=== PATIENT | female | born 1985 | race Caucasian/White ===

== ENCOUNTER → 2017-06-01 | Outpatient (CLI) | payer OTHER ==
--- NOTE | 2017-06-02 22:03 | US ---
EXAMINATION TYPE: Ultrasound MSK left ankle, posterior tibial tendon DATE OF EXAM: 06/01/2017 COMPARISON: NONE CLINICAL HISTORY: 32-year-old female left ankle injury July 03, 2016, multiple episodes of rolling t he ankle since then, injection 6 months ago did not help, currently wears a boot. Evaluate for tibial tendon tear, left side. Technique: Targeted sonographic examination of the medial left ankle for assessment of the posterior tibial tendon. FINDINGS: There is mild posterior tibial tenosynovial thickening at the level of the malleolus and mild fluid s een along the insertional fibers at the navicular. Short axis images of the insertional fibers shows an intrasubstance tear. No large or retracted tear is seen. The malleolar and supramalleolar segments are intact. IMPRESSION: Mild posterior tibial tenosynovitis with an intrasubstance tear of the insertional fibers. No large o r retracted tear.
== END | disposition home or self-care (01) ==
LOC: RADUSWWP 10:14
PROVIDERS: ATTEND Podiatrist Foot & Ankle Surgery
DX: M65.862 Other synovitis and tenosynovitis, left lower leg (principal); S86.112A Strain of other muscle(s) and tendon(s) of posterior muscle group at lower leg level, left leg, initial encounter

== ENCOUNTER 2017-09-13 13:50 | Emergency (ER) | payer OTHER ==
[2017-09-13 13:59] VITALS: BP 112/73; PULSE 78; RESP 16; TEMP 99.1
--- NOTE | 2017-09-13 14:35 | XR ---
Left ankle HISTORY: Pain 3 views of the left ankle There is soft tissue swelling present. Bone mineralization, joint spaces and alignment are maintained . No fracture or dislocation. IMPRESSION: Soft tissue swelling.
--- NOTE | 2017-09-13 15:11 | ED ---
General Adult HPI - General Chief complaint: Extremity Injury, Lower Stated complaint: fall Time Seen by Provider: 09/13/17 14:22 Source: patient, RN notes reviewed Mode of arrival: wheelchair Limitations: no limitations - History of Present Illness Initial comments: 32-year-old female presents to the emergency department for chief complaint of left ankle pain times one day. Patient states this morning she fell in the shower and hurt her ankle. Patient denies any other injuries or hitting her head. Patient states she has torn a ligament in the ankle and has had multiple braces. She is going to have ankle surgery although she is unsure when. Patient states she still has these braces. Patient states she remained nonweightbearing last time by scooter and cannot use crutches. She states she falls when she uses crutches. Patient denies any chance of . Patient has no other complaints at this time including shortness of breath, chest pain, abdominal pain, nausea or vomiting, headache, or visual changes. - Related Data Home Medications Medication Instructions Recorded Confirmed FLUoxetine HCL [PROzac] 20 mg PO DAILY 09/13/17 09/13/17 OXcarbazepine [Trileptal] 300 mg PO BID 09/13/17 09/13/17 Zaleplon [Sonata] 10 mg PO HS 09/13/17 09/13/17 traZODone HCL 100 mg PO HS 09/13/17 09/13/17 Allergies Allergy/AdvReac Type Severity Reaction Status Date / Time macadamia nut oil Allergy Unknown Verified 09/13/17 14:09 shellfish derived [Shellfish] Allergy Unknown Verified 09/13/17 14:09 sunflower seed Allergy Unknown Verified 09/13/17 14:09 Review of Systems ROS Statement: Those systems with pertinent positive or pertinent negative responses have been documented in the HPI. ROS Other: All systems not noted in ROS Statement are negative. Past Medical History Past Medical History: No Reported History History of Any Multi-Drug Resistant Organisms: None Reported Past Surgical History: Appendectomy Additional Past Surgical History / Comment(s): ankle implant ( left side) Past Psychological History: No Psychological Hx Reported Smoking Status: Never smoker Past Alcohol Use History: None Reported Past Drug Use History: None Reported General Exam Limitations: no limitations General appearance: alert, in no apparent distress Head exam: Present: atraumatic, normocephalic, normal inspection Respiratory exam: Present: normal lung sounds bilaterally. Absent: respiratory distress, wheezes, rales, rhonchi, stridor Cardiovascular Exam: Present: regular rate, normal rhythm, normal heart sounds. Absent: systolic murmur, diastolic murmur, rubs, gallop, clicks Extremities exam: Present: tenderness (Tenderness inferior to the lateral malleolus of the left ankle. No tenderness in the left foot or tib-fib.), normal capillary refill (Refill less than 2 seconds and pedal pulse 2+ in the left lower extremity.), joint swelling (Mild joint swelling of the left lateral ankle noted. No ecchymosis.), other (Sensation intact in the left lower extremity.). Absent: full ROM (Patient has slightly limited flexion and extension of the ankle.), pedal edema, calf tenderness (No tenderness in the calf. No redness, swelling, or warmth in the left calf. Negative Homans sign.) Course Vital Signs 09/13/17 13:54 Temperature 99.1 F Pulse Rate 78 Respiratory 16 Rate Blood Pressure 112/73 O2 Sat by Pulse 97 Oximetry Medical Decision Making - Medical Decision Making 32-year-old female presents to the emergency department for a chief complaint of left ankle pain times one day. Patient fell in the shower on the left ankle. Patient did not sustain any other injuries or hit her head or lose consciousness. Patient injured the left ankle previously and tore a ligament. She has had multiple braces and will be eventually getting surgery although she is unsure when. She does follow an orthopedic surgeon already. On exam patient has some limited range of motion of the left ankle and mild swelling on the left lateral ankle. Otherwise neurovascular intact. X-ray demonstrates no acute fractures or dislocations. Patient has the ankle brace with her today and will use that. Patient states she cannot use crutches because she will follow over. Patient does not have the scooter that she used previously to remain nonweightbearing. Patient was educated to try to remain nonweightbearing as much as possible and was given the next day off work. Patient states she has Motrin and Tylenol at home. Patient was educated to rest , ice, and elevate the ankle. She is to follow-up with orthopedics in that time. She does not need a referral as she already follows an orthopedic surgeon. She is to return to the emergency Department if she has any worsening symptoms. Disposition Clinical Impression: Ankle pain, left Disposition: HOME SELF-CARE Condition: Good Instructions: Ankle Sprain (ED), RICE Therapy (ED) Additional Instructions: Please take Motrin and Tylenol for ankle pain. Please rest ice and elevate the ankle. Please try to remain nonweightbearing as much as possible. Follow-up with orthopedic surgeon in 1-2 days. Return to the emergency department if symptoms worsen. Is patient prescribed a controlled substance at d/c from ED?: No Referrals: Eriberto Nassar MD [Primary Care Provider] - 1-2 days Time of Disposition: 15:11
== END 2017-09-13 15:20 | disposition home or self-care (01) ==
LOC: EC 13:50
DX: M25.572 Pain in left ankle and joints of left foot (principal); Z79.899 Other long term (current) drug therapy; Z91.013 Allergy to seafood; Z91.018 Allergy to other foods; W18.2XXA Fall in (into) shower or empty bathtub, initial encounter; Y93.E1 Activity, personal bathing and showering; Y92.009 Unspecified place in unspecified non-institutional (private) residence as the place of occurrence of the external cause
CPT/HCPCS: 99283

== ENCOUNTER 2018-10-29 17:19 | Emergency (ER) | payer OTHER ==
[2018-10-29 17:54] VITALS: TEMP 99.1
[2018-10-29] MEDS ORDERED: SODIUM CHLORIDE 0.9% 1,000 ML IV ONE (18:02)
--- NOTE | 2018-10-29 18:05 | ED ---
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 Patient states that there were several people who got sick with similar symptoms, and that a "septic backup" was identified coming from a water heater. The patient states that since leaving work her symptoms have started to improve. She cannot identify any other inciting incidences. There are no arrhythmia or alleviating factors. Timing is constant thoughts that. - Related Data Home Medications Medication Instructions Recorded Confirmed OXcarbazepine [Trileptal] 300 mg PO BID 09/13/17 10/29/18 Zaleplon [Sonata] 10 mg PO HS 09/13/17 10/29/18 traZODone HCL 100 mg PO HS 09/13/17 10/29/18 Ferrous Sulfate [Feosol] 325 mg PO DAILY 10/29/18 10/29/18 Allergies Allergy/AdvReac Type Severity Reaction Status Date / Time aspirin Allergy Rash/Hives Verified 10/29/18 18:29 coconut Allergy Anaphylaxis Verified 10/29/18 18:29 glyburide Allergy Anaphylaxis Verified 10/29/18 18:29 macadamia nut oil Allergy Anaphylaxis Verified 10/29/18 18:29 shellfish derived [Shellfish] Allergy Anaphylaxis Verified 10/29/18 18:29 sunflower seed Allergy Anaphylaxis Verified 10/29/18 18:29 Review of Systems ROS Statement: Those systems with pertinent positive or pertinent negative responses have been documented in the HPI. ROS Other: All systems not noted in ROS Statement are negative. Gastrointestinal: Reports: abdominal pain, nausea Neurological: Reports: headache Past Medical History Past Medical History: No Reported History History of Any Multi-Drug Resistant Organisms: None Reported Past Surgical History: Appendectomy Additional Past Surgical History / Comment(s): ankle implant ( left side) Past Psychological History: No Psychological Hx Reported Smoking Status: Never smoker Past Alcohol Use History: None Reported Past Drug Use History: None Reported General Exam Limitations: no limitations General appearance: alert, in no apparent distress Head exam: Present: atraumatic, normocephalic Eye exam: Present: normal appearance, PERRL, EOMI ENT exam: Present: normal exam Neck exam: Present: normal inspection Respiratory exam: Present: normal lung sounds bilaterally. Absent: respiratory distress, wheezes Cardiovascular Exam: Present: regular rate, normal rhythm GI/Abdominal exam: Present: soft. Absent: distended, tenderness Rectal exam: Present: deferred Extremities exam: Present: normal inspection Back exam: Present: normal inspection Neurological exam: Present: alert, oriented X3, CN II-XII intact. Absent: motor sensory deficit Psychiatric exam: Present: normal affect, normal mood Skin exam: Present: warm, dry, intact Course Vital Signs 10/29/18 17:51 Temperature 99.1 F Pulse Rate 75 Respiratory 16 Rate Blood Pressure 110/75 O2 Sat by Pulse 100 Oximetry Medical Decision Making - Medical Decision Making Patient presents with a chief complaint of headache, nausea and abdominal pain. On initial evaluation, vitals are stable, patient is in no acute distress. Patient states there was a "septic backup" at work, from a water heater, is possible that the patient may been exposed to carbon monoxide given that other people at her work and similar symptoms. Patient to be evaluated with basic labs including a carbon monoxide level, she was given a liter of fluid and placed on supplement oxygen. 7:23 PM Lab evaluation this patient is unremarkable. On reevaluation, patient states that she feels improved. At this time, patient stable for discharge. She was instructed to follow up with primary care 1-2 days, return to ED if symptoms worsen or change. She was instructed to return to work after the problem is been resolved. - Lab Data Result diagrams: 10/29/18 18:18 10/29/18 18:18 Lab Results 10/29/18 10/29/18 10/29/18 Range/Units 18:18 18:18 18:18 WBC 9.3 (3.8-10.6) k/uL RBC 4.13 (3.80-5.40) m/uL Hgb 12.8 (11.4-16.0) gm/dL Hct 37.6 (34.0-46.0) % MCV 91.1 (80.0-100.0) fL MCH 30.9 (25.0-35.0) pg MCHC 34.0 (31.0-37.0) g/dL RDW 13.0 (11.5-15.5) % Plt Count 294 (150-450) k/uL Neutrophils % 72 % Lymphocytes % 22 % Monocytes % 4 % Eosinophils % 1 % Basophils % 0 % Neutrophils # 6.7 (1.3-7.7) k/uL Lymphocytes # 2.0 (1.0-4.8) k/uL Monocytes # 0.4 (0-1.0) k/uL Eosinophils # 0.1 (0-0.7) k/uL Basophils # 0.0 (0-0.2) k/uL Carbon Monoxide, Quant 1.2 (<10.0) % Sodium 139 (137-145) mmol/L Potassium 4.5 (3.5-5.1) mmol/L Chloride 107 (98-107) mmol/L Carbon Dioxide 24 (22-30) mmol/L Anion Gap 8 mmol/L BUN 13 (7-17) mg/dL Creatinine 0.59 (0.52-1.04) mg/dL Est GFR (CKD-EPI)AfAm >90 (>60 ml/min/1.73 sqM) Est GFR (CKD-EPI)NonAf >90 (>60 ml/min/1.73 sqM) Glucose 84 (74-99) mg/dL Calcium 8.7 (8.4-10.2) mg/dL HCG, Qual Not Detected Disposition Clinical Impression: Nausea, Environmental exposure Disposition: HOME SELF-CARE Condition: Good Instructions (If sedation given, give patient instructions): Acute Nausea and Vomiting (ED) Is patient prescribed a controlled substance at d/c from ED?: No Referrals: Eriberto Nassar MD [Primary Care Provider] - 1-2 days
[2018-10-29 18:57] LABS: Basophils % (A) 0 %; Eosinophils # (A) 0.1 k/uL (0-0.7); Eosinophils % (A) 1 %; HCT 37.6 % (34.0-46.0); HGB 12.8 gm/dL (11.4-16.0); Lymphocytes % (A) 22 %; MCH 30.9 pg (25.0-35.0); MCV 91.1 fL (80.0-100.0); Mean Platelet Volume 7.4; Monocytes # (A) 0.4 k/uL (0-1.0); Monocytes % (A) 4 %; Neutrophils # (A) 6.7 k/uL (1.3-7.7); Neutrophils % (A) 72 %; Platelet Count 294 k/uL (150-450); RBC 4.13 m/uL (3.80-5.40); WBC 9.3 k/uL (3.8-10.6)
[2018-10-29 19:07] LABS: HCG,Qualitative Serum Not Detected
[2018-10-29 19:15] LABS: African American GFR (CKD) >90 (>60 ml/min/1.73 sqM); Anion Gap 8 mmol/L; Blood Urea Nitrogen 13 mg/dL (7-17); Calcium 8.7 mg/dL (8.4-10.2); Carbon Dioxide 24 mmol/L (22-30); Chloride 107 mmol/L (98-107); Glucose 84 mg/dL (74-99); Potassium 4.5 mmol/L (3.5-5.1); Sodium 139 mmol/L (137-145)
[2018-10-29 19:57] VITALS: BP 115/72; PULSE 66; RESP 18
== END 2018-10-29 19:45 | disposition home or self-care (01) ==
LOC: EC 17:19
DX: T75.89XA Other specified effects of external causes, initial encounter (principal); R11.0 Nausea; R51 Headache; R10.9 Unspecified abdominal pain; Z79.899 Other long term (current) drug therapy; Z88.6 Allergy status to analgesic agent; Z88.8 Allergy status to other drugs, medicaments and biological substances; Z91.018 Allergy to other foods; Z91.013 Allergy to seafood; X08.8XXA Exposure to other specified smoke, fire and flames, initial encounter; Y92.69 Other specified industrial and construction area as the place of occurrence of the external cause; Y99.0 Civilian activity done for income or pay
CPT/HCPCS: 36415; 80048; 82375; 84703; 85025; 93005; 96360; 99284

== ENCOUNTER → 2018-11-11 | Outpatient (CLI) | payer OTHER ==
--- NOTE | 2018-11-11 14:55 | US ---
EXAMINATION TYPE: US transvaginal DATE OF EXAM: 11/11/2018 COMPARISON: NONE CLINICAL HISTORY: Patient states she had her LMP 10/27/2018. Passed some tissue about a week ago. Yamini ent states she has not had a positive test. Had blood drawn at her doctor's office but did not have the results. TECHNIQUE: . Transvaginal sonographic images of the pelvis were acquired. Date of LMP: 10/27/2018 EXAM MEASUREMENTS: Uterus: 7.2 x 3.1 x 3.4 cm Endometrial Stripe: 0.9 cm Right Ovary: 3.6 x 2.0 x 2.6 cm Left Ovary: 2.9 x 1.5 x 2.5 cm 1. Uterus: Anteverted wnl 2. Endometrium: wnl 3. Right Ovary: Cystic area visualized measuring 2.2 x 1.4 x 1.9 cm 4. Left Ovary: Follicles visualized, largest measuring 1.0 cm 5. Bilateral Adnexa: wnl 6. Posterior cul-de-sac: wnl Grayscale, color Doppler, spectral Doppler imaging performed of the ovaries. Arterial and venous wave forms are identified within the right ovary, there is color flow. IMPRESSION: Right ovarian cyst as described. Follicles associated with the left ovary.
== END | disposition home or self-care (01) ==
LOC: RADUSWWP 12:16
PROVIDERS: ATTEND Family Medicine
DX: O20.0 Threatened abortion (principal); N83.201 Unspecified ovarian cyst, right side
CPT/HCPCS: 76830

== ENCOUNTER 2019-02-05 19:49 | Emergency (ER) | payer OTHER ==
[2019-02-05 20:01] VITALS: TEMP 98.3
[2019-02-05 20:50] LABS: Basophils # (A) 0.1 k/uL (0-0.2); Basophils % (A) 0 %; Eosinophils # (A) 0.1 k/uL (0-0.7); Eosinophils % (A) 1 %; HCT 46.3 % (34.0-46.0); HGB 15.6 gm/dL (11.4-16.0); Lymphocytes # (A) 2.8 k/uL (1.0-4.8); Lymphocytes % (A) 24 %; MCH 31.3 pg (25.0-35.0); MCHC 33.7 g/dL (31.0-37.0); MCV 92.9 fL (80.0-100.0); Mean Platelet Volume 6.4; Monocytes # (A) 0.4 k/uL (0-1.0); Monocytes % (A) 4 %; Neutrophils # (A) 8.1 k/uL (1.3-7.7); Neutrophils % (A) 70 %; Platelet Count 288 k/uL (150-450); RBC 4.98 m/uL (3.80-5.40); RDW 11.9 % (11.5-15.5); WBC 11.6 k/uL (3.8-10.6)
[2019-02-05 20:55] LABS: ALT 13 U/L (9-52); AST 22 U/L (14-36); African American GFR (CKD) >90 (>60 ml/min/1.73 sqM); Albumin 4.9 g/dL (3.5-5.0); Alkaline Phosphatase 119 U/L (38-126); Anion Gap 12 mmol/L; Blood Urea Nitrogen 12 mg/dL (7-17); Calcium 9.6 mg/dL (8.4-10.2); Carbon Dioxide 22 mmol/L (22-30); Chloride 106 mmol/L (98-107); Glucose 79 mg/dL (74-99); Potassium 4.3 mmol/L (3.5-5.1); Sodium 140 mmol/L (137-145); Total Bilirubin 0.8 mg/dL (0.2-1.3); Total Protein 8.1 g/dL (6.3-8.2)
[2019-02-05 21:02] LABS: D-Dimer 0.36 mg/L FEU (<0.60); INR 0.9 (<1.2); Partial Thromboplastin Time 24.1 sec (22.0-30.0); Prothrombin Time 9.9 sec (9.0-12.0)
--- NOTE | 2019-02-05 21:02 | XR ---
EXAMINATION TYPE: XR chest 2V DATE OF EXAM: 02/05/2019 COMPARISON: NONE HISTORY: Short of breath TECHNIQUE: Frontal and lateral views of the chest are obtained. FINDINGS: Heart and mediastinum are normal. Lungs are clear. Diaphragm is normal. Bony thorax appear s normal. There are chest leads. IMPRESSION: Normal chest
--- NOTE | 2019-02-05 22:26 | US ---
EXAMINATION TYPE: US venous doppler duplex LE LT DATE OF EXAM: 02/05/2019 10:20 PM COMPARISON: NONE CLINICAL HISTORY: r/o dvt. R/O DVT. Pain and swelling left leg. No HX of DVT. Patient does not take b lood thinners. SIDE PERFORMED: Left TECHNIQUE: The lower extremity deep venous system is examined utilizing real time linear array sonog jenna with graded compression, doppler sonography and color-flow sonography. VESSELS IMAGED: External Iliac Vein (EIV) Common Femoral Vein Deep Femoral Vein Greater Saphenous Vein * Femoral Vein Popliteal Vein Small Saphenous Vein * Proximal Calf Veins (* superficial vessels) Left Leg: No evidence of DVT in veins imaged from prox calf veins to EIV. Hypoechoic area with hyper echoic center seen in the left groin measurin.2 x 1.3 x 0.7 cm. IMPRESSION: No sign of deep venous thrombosis in the left leg. There is ordinary appearing left ingu inal lymph node.
[2019-02-05 22:52] VITALS: BP 120/80; PULSE 76; RESP 16
--- NOTE | 2019-02-05 22:58 | ED ---
SOB HPI - General Chief Complaint: Shortness of Breath Stated Complaint: poss blood clot Time Seen by Provider: 02/05/19 20:03 Source: patient Mode of arrival: ambulatory Limitations: no limitations - History of Present Illness Initial Comments: 33-year-old female presenting to the emergency room for evaluation of possible blood clot. Patient states she went to an urgent care because she felt short of breath slightly for the past 3 days. She does admit to ALLERGIES and some congestion. Patient states that they were asking about her lower extremities on history taking and she mentioned an old tendon injury of the left lower extremity. She states she has had no recent injuries or surgeries. Patient states that she always has on and off chronic leg swelling denies any changes. Patient denies any calf pain but states she did have some left posterior thigh pain the other day she thought it was a cramping sensation. Patient denies any severe pain numbness tingling of the leg. She states that she has had no chest pain or pain with deep inspiration, denies fever. She denies history of diabetes high blood pressure. She states that she is not . Patient denies any history of DVT or pulmonary embolism. Denies history of cancer r ecent travel, or immobilization. Patient denies hemoptysis or cough. Patient denies any other symptoms at this time. Remaining abuse is negative patient appears well upon arrival heart rate within normal limits. Oxygen well on room air. - Related Data Home Medications Medication Instructions Recorded Confirmed OXcarbazepine [Trileptal] 300 mg PO BID 09/13/17 02/05/19 Zaleplon [Sonata] 10 mg PO HS 09/13/17 02/05/19 traZODone HCL 100 mg PO HS 09/13/17 02/05/19 Ferrous Sulfate [Feosol] 325 mg PO DAILY 10/29/18 02/05/19 Previous Rx's Medication Instructions Recorded predniSONE 20 mg PO DAILY 4 Days #4 tab 02/05/19 Allergies Allergy/AdvReac Type Severity Reaction Status Date / Time aspirin Allergy Rash/Hives Verified 02/05/19 20:27 coconut Allergy Anaphylaxis Verified 02/05/19 20:27 glyburide Allergy Anaphylaxis Verified 02/05/19 20:27 macadamia nut oil Allergy Anaphylaxis Verified 02/05/19 20:27 sunflower seed Allergy Anaphylaxis Verified 02/05/19 20:27 amoxicillin AdvReac Nausea & Verified 02/05/19 20:27 Vomiting & Diarrhea shellfish derived [Shellfish] AdvReac Nausea & Verified 02/05/19 20:27 Vomiting & Diarrhea Review of Systems ROS Statement: Those systems with pertinent positive or pertinent negative responses have been documented in the HPI. ROS Other: All systems not noted in ROS Statement are negative. Past Medical History Past Medical History: No Reported History History of Any Multi-Drug Resistant Organisms: None Reported Past Surgical History: Appendectomy, Orthopedic Surgery Additional Past Surgical History / Comment(s): ankle implant ( left side) Past Psychological History: No Psychological Hx Reported Smoking Status: Never smoker Past Alcohol Use History: None Reported Past Drug Use History: None Reported General Exam - General Exam Comments Initial Comments: General: The patient is awake and alert, in no distress, and does not appear acutely ill. Eye: +3 mm pupils are equal, round and reactive to light, extra-ocular movements are intact. No nystagmus. There is normal conjunctiva bilaterally. No signs of icterus. No photophobia Ears, nose, mouth and throat: There are moist mucous membranes and no oral lesions. Oropharynx was not erythematous there is no tonsillar enlargement exudates or lesions. Uvula midline. No anterior cervical lymphadenopathy. Rhinorrhea, clear and bilateral nares. No tripoding, no drooling. Neck: The neck is supple, there is no tenderness or JVD. Cardiovascular: There is a regular rate and rhythm. No murmur, rub or gallop is appreciated. Respiratory: Lungs are clear to auscultation, respirations are non-labored, breath sounds are equal. No wheezes, stridor, rales, or rhonchi. No retractions or abdominal breathing. Gastrointestinal: Soft, non-distended, non-tender abdomen without masses or organomegaly noted. There is no rebound or guarding present. Bowel sounds are unremarkable. Musculoskeletal: Normal ROM, no tenderness. Strength 5/5. Sensation intact. Radial pulses equal bilaterally 2+. Neurological: A&O x 3. CN II-XII intact, There are no obvious motor or sensory deficits. Coordination appears grossly intact. Speech appears normal, no muffling. Skin: Skin is warm and dry and no rashes or lesions are noted. No extremity edema. Negative jazz. Small bruise left anterior shikn Psychiatric: Cooperative Limitations: no limitations Course Vital Signs 02/05/19 02/05/19 02/05/19 19:59 20:01 21:00 Temperature 98.3 F Pulse Rate 82 80 Respiratory 24 24 22 Rate Blood Pressure 125/86 111/78 O2 Sat by Pulse 100 100 Oximetry 02/05/19 02/05/19 02/05/19 21:30 22:00 22:50 Temperature Pulse Rate 72 68 76 Respiratory 18 22 16 Rate Blood Pressure 108/74 115/102 120/80 O2 Sat by Pulse 100 100 100 Oximetry Medical Decision Making - Medical Decision Making well-appearing 33-year-old female. Presented for rule out blood clot. D-dimer negative. Ultrasound of the left lower extremity negative. Lungs clear on examination. No wheezing. Chest x-ray clear. EKG no acute findings. Patient oxygen will room air no hypoxia no tachycardia. No risks factors for DVT or pulmonary embolism, patient appears well with no signs of distress.. Patient has nasal congestion upper respiratory symptoms. Patient does not have pitting edema, obsese legs that are equal b/l. No masses or pain in calfs. After reviewing laboratory studies patient's overall. His history and the patient most likely has upper respiratory infection. She states she free clinic bronchitis at this time. Patient given prescription for prednisone primary care follow-up return parameters discussed case discussed with attending provider and patient was discharged. No agreeable to this care plan states she did not think it is necessary for her to come to the emergency department. - Lab Data Result diagrams: 02/05/19 20:36 02/05/19 20:36 Lab Results 02/05/19 02/05/19 02/05/19 Range/Units 20:36 20:36 20:36 WBC 11.6 H (3.8-10.6) k/uL RBC 4.98 (3.80-5.40) m/uL Hgb 15.6 (11.4-16.0) gm/dL Hct 46.3 H (34.0-46.0) % MCV 92.9 (80.0-100.0) fL MCH 31.3 (25.0-35.0) pg MCHC 33.7 (31.0-37.0) g/dL RDW 11.9 (11.5-15.5) % Plt Count 288 (150-450) k/uL Neutrophils % 70 % Lymphocytes % 24 % Monocytes % 4 % Eosinophils % 1 % Basophils % 0 % Neutrophils # 8.1 H (1.3-7.7) k/uL Lymphocytes # 2.8 (1.0-4.8) k/uL Monocytes # 0.4 (0-1.0) k/uL Eosinophils # 0.1 (0-0.7) k/uL Basophils # 0.1 (0-0.2) k/uL PT 9.9 (9.0-12.0) sec INR 0.9 (<1.2) APTT 24.1 (22.0-30.0) sec D-Dimer 0.36 (<0.60) mg/L FEU Sodium 140 (137-145) mmol/L Potassium 4.3 (3.5-5.1) mmol/L Chloride 106 (98-107) mmol/L Carbon Dioxide 22 (22-30) mmol/L Anion Gap 12 mmol/L BUN 12 (7-17) mg/dL Creatinine 0.72 (0.52-1.04) mg/dL Est GFR (CKD-EPI)AfAm >90 (>60 ml/min/1.73 sqM) Est GFR (CKD-EPI)NonAf >90 (>60 ml/min/1.73 sqM) Glucose 79 (74-99) mg/dL Calcium 9.6 (8.4-10.2) mg/dL Total Bilirubin 0.8 (0.2-1.3) mg/dL AST 22 (14-36) U/L ALT 13 (9-52) U/L Alkaline Phosphatase 119 (38-126) U/L Troponin I (0.000-0.034) ng/mL Total Protein 8.1 (6.3-8.2) g/dL Albumin 4.9 (3.5-5.0) g/dL Urine HCG, Qual (Not Detectd) 02/05/19 02/05/19 Range/Units 20:36 21:10 WBC (3.8-10.6) k/uL RBC (3.80-5.40) m/uL Hgb (11.4-16.0) gm/dL Hct (34.0-46.0) % MCV (80.0-100.0) fL MCH (25.0-35.0) pg MCHC (31.0-37.0) g/dL RDW (11.5-15.5) % Plt Count (150-450) k/uL Neutrophils % % Lymphocytes % % Monocytes % % Eosinophils % % Basophils % % Neutrophils # (1.3-7.7) k/uL Lymphocytes # (1.0-4.8) k/uL Monocytes # (0-1.0) k/uL Eosinophils # (0-0.7) k/uL Basophils # (0-0.2) k/uL PT (9.0-12.0) sec INR (<1.2) APTT (22.0-30.0) sec D-Dimer (<0.60) mg/L FEU Sodium (137-145) mmol/L Potassium (3.5-5.1) mmol/L Chloride (98-107) mmol/L Carbon Dioxide (22-30) mmol/L Anion Gap mmol/L BUN (7-17) mg/dL Creatinine (0.52-1.04) mg/dL Est GFR (CKD-EPI)AfAm (>60 ml/min/1.73 sqM) Est GFR (CKD-EPI)NonAf (>60 ml/min/1.73 sqM) Glucose (74-99) mg/dL Calcium (8.4-10.2) mg/dL Total Bilirubin (0.2-1.3) mg/dL AST (14-36) U/L ALT (9-52) U/L Alkaline Phosphatase (38-126) U/L Troponin I <0.012 (0.000-0.034) ng/mL Total Protein (6.3-8.2) g/dL Albumin (3.5-5.0) g/dL Urine HCG, Qual Not Detected (Not Detectd) Disposition Clinical Impression: Nasal congestion, Shortness of breath Disposition: HOME SELF-CARE Condition: Good Instructions (If sedation given, give patient instructions): Shortness of Breath (ED) Additional Instructions: Please use medication as discussed. Please follow-up with family doctor in the next 2 days. Please return to emergency room if the symptoms increase or worsen or for any other concerns. Prescriptions: predniSONE 20 mg PO DAILY 4 Days #4 tab Is patient prescribed a controlled substance at d/c from ED?: No Referrals: Eriberto Nassar MD [Primary Care Provider] - 1-2 days Time of Disposition: 22:58
== END 2019-02-05 23:15 | disposition home or self-care (01) ==
LOC: EC 19:49
DX: R06.02 Shortness of breath (principal); R09.81 Nasal congestion; S80.12XA Contusion of left lower leg, initial encounter; M79.652 Pain in left thigh; Z88.0 Allergy status to penicillin; Z88.6 Allergy status to analgesic agent; Z88.8 Allergy status to other drugs, medicaments and biological substances; Z91.013 Allergy to seafood; Z91.018 Allergy to other foods; Z91.048 Other nonmedicinal substance allergy status; Z96.698 Presence of other orthopedic joint implants; X58.XXXA Exposure to other specified factors, initial encounter
CPT/HCPCS: 36415; 71046; 80053; 81025; 84484; 85025; 85379; 85610; 85730; 93005; 99285

== ENCOUNTER 2019-02-07 10:25 | Emergency (ER) | payer OTHER ==
[2019-02-07 11:08] VITALS: PULSE 77
[2019-02-07 12:26] LABS: Basophils % (A) 0 %; Eosinophils # (A) 0.1 k/uL (0-0.7); Eosinophils % (A) 1 %; HCT 42.1 % (34.0-46.0); HGB 13.7 gm/dL (11.4-16.0); Lymphocytes # (A) 0.9 k/uL (1.0-4.8); Lymphocytes % (A) 10 %; MCH 30.5 pg (25.0-35.0); MCHC 32.6 g/dL (31.0-37.0); MCV 93.4 fL (80.0-100.0); Mean Platelet Volume 7.1; Monocytes # (A) 0.2 k/uL (0-1.0); Monocytes % (A) 2 %; Neutrophils # (A) 8.2 k/uL (1.3-7.7); Neutrophils % (A) 87 %; Platelet Count 300 k/uL (150-450); RBC 4.51 m/uL (3.80-5.40); RDW 11.9 % (11.5-15.5); WBC 9.4 k/uL (3.8-10.6)
[2019-02-07 12:37] LABS: ALT 10 U/L (9-52); AST 17 U/L (14-36); African American GFR (CKD) >90 (>60 ml/min/1.73 sqM); Albumin 4.2 g/dL (3.5-5.0); Alkaline Phosphatase 110 U/L (38-126); Anion Gap 7 mmol/L; Blood Urea Nitrogen 13 mg/dL (7-17); Calcium 9.4 mg/dL (8.4-10.2); Carbon Dioxide 25 mmol/L (22-30); Chloride 108 mmol/L (98-107); Glucose 116 mg/dL (74-99); Potassium 4.7 mmol/L (3.5-5.1); Sodium 140 mmol/L (137-145); Total Bilirubin 0.4 mg/dL (0.2-1.3); Total Protein 7.1 g/dL (6.3-8.2)
[2019-02-07 13:37] LABS: D-Dimer 0.31 mg/L FEU (<0.60); INR 0.9 (<1.2); Partial Thromboplastin Time 22.1 sec (22.0-30.0); Prothrombin Time 9.8 sec (9.0-12.0)
--- NOTE | 2019-02-07 13:47 | CT ---
EXAMINATION TYPE: CT chest angio for PE DATE OF EXAM: 02/07/2019 COMPARISON: None HISTORY: Difficulty breathing. Chest pain CT DLP: 540.8 mGycm CONTRAST: CT chest with contrast and 3D reconstruction with MIP imaging is performed with IV Contrast, patient injected with 100 mL of Isovue 370. Contrast-enhanced CT of the chest was performed through the course of the pulmonary arteries with connor g and mediastinal window settings submitted. 3D reconstruction with MIP imaging was also performed. PULMONARY ARTERIES: The pulmonary arteries and their major tributaries are patent. I do not see roni dence for sizable filling defect to suggest pulmonary embolic process. LUNGS: The lungs are clear and free of infiltrate. No evidence for atelectasis. No pulmonary nodule or mass is detected. No pleural effusion. MEDIASTINUM: Thoracic aorta is of normal caliber,however, evaluation is limited given timing of the contrast bolus. If there is concern for thoracic aortic pathology consider DARLEEN. Correlate clinicall y . The heart is not enlarged. No evidence for mediastinal mass. No mediastinal lymph nodes greater than 1cm. HILAR STRUCTURES: No evidence for mass. No hilar lymph nodes greater than 1 cm. UPPER ABDOMEN: No significant abnormality is seen. IMPRESSION: 1. No evidence for Pulmonary embolism at this time.
--- NOTE | 2019-02-07 14:26 | ED ---
General Adult HPI - General Chief complaint: Shortness of Breath Stated complaint: poss blood clot Time Seen by Provider: 02/07/19 11:05 Source: patient Mode of arrival: ambulatory Limitations: no limitations - History of Present Illness Initial comments: The patient is a 33-year-old female with no reported past medical history presents emergency room with reported shortness of breath. No history of underlying lung issues. She went to an urgent care on the for shortness of breath. She admitted to cough with some congestion. Cough is nonproductive. During history taking, she did mention a previous tendon injury to the left lower extremity. No history of DVTs or PEs. No recent surgeries or injuries. She has had transient, chronic leg swelling. Denies any current calf pain or swelling. It is centered to the emergency room for evaluation. She had a negative d-dimer and negative lower extremity ultrasounds. She was told to follow-up in her primary care office. She saw Dr. Nassar today. He diagnosed with a bilateral ear infection. He did prescribe her antibiotics for this however she has had to crab picker from pharmacy. She did mention shortness of breath today him. He did recommend that she come to the emergency department for a CT PE study. He is concerned for PE as the patient reports that she is now having chest pain in addition to the shortness of breath. It is pleuritic chest pain. Denies ripping or tearing sensation to her back. Admits to exertional shortness of breath as well. No current lower extremity swelling. Denies any back or flank pain. No changes in her bowel or bladder habits. Denies any fevers or chills. No hemoptysis. She was prescribed prednisone at her previous hospital discharge and states she's been taking this as directed. There are no other alleviating, precipitating or modifying factors - Related Data Home Medications Medication Instructions Recorded Confirmed OXcarbazepine [Trileptal] 300 mg PO BID 09/13/17 02/07/19 Zaleplon [Sonata] 10 mg PO HS 09/13/17 02/07/19 traZODone HCL 100 mg PO HS 09/13/17 02/07/19 Ferrous Sulfate [Feosol] 325 mg PO DAILY 10/29/18 02/07/19 Previous Rx's Medication Instructions Recorded Albuterol Nebulized [Ventolin 2.5 mg INHALATION Q4H #30 nebu 02/07/19 Nebulized] Albuterol Sulfate [Proair Hfa] 1 - 2 puff INHALATION Q4HR PRN #1 02/07/19 inhaler Allergies Allergy/AdvReac Type Severity Reaction Status Date / Time aspirin Allergy Rash/Hives Verified 02/07/19 12:07 coconut Allergy Anaphylaxis Verified 02/07/19 12:07 glyburide Allergy Anaphylaxis Verified 02/07/19 12:07 macadamia nut oil Allergy Anaphylaxis Verified 02/07/19 12:07 sunflower seed Allergy Anaphylaxis Verified 02/07/19 12:07 amoxicillin AdvReac Nausea & Verified 02/07/19 12:07 Vomiting & Diarrhea shellfish derived [Shellfish] AdvReac Nausea & Verified 02/07/19 12:07 Vomiting & Diarrhea Review of Systems ROS Statement: Those systems with pertinent positive or pertinent negative responses have been documented in the HPI. ROS Other: All systems not noted in ROS Statement are negative. Past Medical History Past Medical History: No Reported History History of Any Multi-Drug Resistant Organisms: None Reported Past Surgical History: Appendectomy, Orthopedic Surgery Additional Past Surgical History / Comment(s): ankle implant ( left side) Past Psychological History: No Psychological Hx Reported Smoking Status: Never smoker Past Alcohol Use History: None Reported Past Drug Use History: None Reported General Exam Limitations: no limitations General appearance: alert, in no apparent distress Head exam: Present: atraumatic, normocephalic, normal inspection Eye exam: Present: normal appearance, PERRL, EOMI. Absent: scleral icterus, conjunctival injection, periorbital swelling ENT exam: Present: normal exam, mucous membranes moist Neck exam: Present: normal inspection. Absent: tenderness, meningismus, lymphadenopathy Respiratory exam: Present: normal lung sounds bilaterally. Absent: respiratory distress, wheezes, rales, rhonchi, stridor Cardiovascular Exam: Present: regular rate, normal rhythm, normal heart sounds. Absent: systolic murmur, diastolic murmur, rubs, gallop, clicks GI/Abdominal exam: Present: soft, normal bowel sounds. Absent: distended, tenderness, guarding, rebound, rigid Extremities exam: Present: normal inspection, full ROM, normal capillary refill. Absent: tenderness, pedal edema, joint swelling, calf tenderness Back exam: Present: normal inspection Neurological exam: Present: alert, oriented X3, CN II-XII intact Psychiatric exam: Present: normal affect, normal mood Skin exam: Present: warm, dry, intact, normal color. Absent: rash Course Vital Signs 02/07/19 02/07/19 02/07/19 11:05 12:07 14:34 Temperature 98.8 F 98.1 F Pulse Rate 77 77 Respiratory 20 20 16 Rate Blood Pressure 110/78 117/78 O2 Sat by Pulse 100 99 Oximetry EKG Findings - EKG Comments: EKG Findings:: EKG demonstrates a sinus rhythm with a ventricular rate of 71. RI interval is 156. QRS 92. QTC 417. Inverted T-wave in lead 3. No acute ST segment elevations. No signs of Nrdgy-Oypokkdlp-Vktcd or Brugada syndrome Medical Decision Making - Medical Decision Making Upon arrival patient was placed in room 11. History and physical exam was perf ormed. I did perform a 12-lead EKG in the patient. Laboratory says were conducted. The patient is insistent on having a CT PE study. I did discuss risks and benefits the study. Laboratory studies and compared to previous. They are unremarkable. Urine hCG is negative. The patient is sent over for a CTA. No evidence of pulmonary embolism at this time. Lung rondon are clear. I discussed results with the patient. At this time she feels comfortable being discharged home. She was started on an antibiotic and should take it as prescribed by Dr. Nassar. She is requesting albuterol for her nebulizer. I did provide the patient with this prescription. I also gave her an albuterol inhaler prescription. Medications e-prescribed. I discussed with the patient the need for further testing to include pulmonary function studies and a possible echo. Patient understood this. If she has any new or worsening symptoms she should return to the emergency room. Patient was then discharged in stable condition - Lab Data Result diagrams: 02/07/19 12:10 02/07/19 12:10 Lab Results 02/07/19 02/07/19 02/07/19 Range/Units 12:10 12:10 13:10 WBC 9.4 (3.8-10.6) k/uL RBC 4.51 (3.80-5.40) m/uL Hgb 13.7 (11.4-16.0) gm/dL Hct 42.1 (34.0-46.0) % MCV 93.4 (80.0-100.0) fL MCH 30.5 (25.0-35.0) pg MCHC 32.6 (31.0-37.0) g/dL RDW 11.9 (11.5-15.5) % Plt Count 300 (150-450) k/uL Neutrophils % 87 % Lymphocytes % 10 % Monocytes % 2 % Eosinophils % 1 % Basophils % 0 % Neutrophils # 8.2 H (1.3-7.7) k/uL Lymphocytes # 0.9 L (1.0-4.8) k/uL Monocytes # 0.2 (0-1.0) k/uL Eosinophils # 0.1 (0-0.7) k/uL Basophils # 0.0 (0-0.2) k/uL PT (9.0-12.0) sec INR (<1.2) APTT (22.0-30.0) sec D-Dimer (<0.60) mg/L FEU Sodium 140 (137-145) mmol/L Potassium 4.7 (3.5-5.1) mmol/L Chloride 108 H (98-107) mmol/L Carbon Dioxide 25 (22-30) mmol/L Anion Gap 7 mmol/L BUN 13 (7-17) mg/dL Creatinine 0.67 (0.52-1.04) mg/dL Est GFR (CKD-EPI)AfAm >90 (>60 ml/min/1.73 sqM) Est GFR (CKD-EPI)NonAf >90 (>60 ml/min/1.73 sqM) Glucose 116 H (74-99) mg/dL Calcium 9.4 (8.4-10.2) mg/dL Total Bilirubin 0.4 (0.2-1.3) mg/dL AST 17 (14-36) U/L ALT 10 (9-52) U/L Alkaline Phosphatase 110 (38-126) U/L Total Protein 7.1 (6.3-8.2) g/dL Albumin 4.2 (3.5-5.0) g/dL Urine HCG, Qual Not Detected (Not Detectd) 02/07/19 Range/Units 13:10 WBC (3.8-10.6) k/uL RBC (3.80-5.40) m/uL Hgb (11.4-16.0) gm/dL Hct (34.0-46.0) % MCV (80.0-100.0) fL MCH (25.0-35.0) pg MCHC (31.0-37.0) g/dL RDW (11.5-15.5) % Plt Count (150-450) k/uL Neutrophils % % Lymphocytes % % Monocytes % % Eosinophils % % Basophils % % Neutrophils # (1.3-7.7) k/uL Lymphocytes # (1.0-4.8) k/uL Monocytes # (0-1.0) k/uL Eosinophils # (0-0.7) k/uL Basophils # (0-0.2) k/uL PT 9.8 (9.0-12.0) sec INR 0.9 (<1.2) APTT 22.1 (22.0-30.0) sec D-Dimer 0.31 (<0.60) mg/L FEU Sodium (137-145) mmol/L Potassium (3.5-5.1) mmol/L Chloride (98-107) mmol/L Carbon Dioxide (22-30) mmol/L Anion Gap mmol/L BUN (7-17) mg/dL Creatinine (0.52-1.04) mg/dL Est GFR (CKD-EPI)AfAm (>60 ml/min/1.73 sqM) Est GFR (CKD-EPI)NonAf (>60 ml/min/1.73 sqM) Glucose (74-99) mg/dL Calcium (8.4-10.2) mg/dL Total Bilirubin (0.2-1.3) mg/dL AST (14-36) U/L ALT (9-52) U/L Alkaline Phosphatase (38-126) U/L Total Protein (6.3-8.2) g/dL Albumin (3.5-5.0) g/dL Urine HCG, Qual (Not Detectd) Disposition Clinical Impression: Shortness of breath Disposition: HOME SELF-CARE Condition: Stable Instructions (If sedation given, give patient instructions): Dyspnea (ED) Additional Instructions: Please follow up with the primary care doctor in 1-2 days. Return to the emergency department for any new or worsening symptoms Prescriptions: Albuterol Sulfate [Proair Hfa] 1 - 2 puff INHALATION Q4HR PRN #1 inhaler PRN Reason: difficulty in breathing Albuterol Nebulized [Ventolin Nebulized] 2.5 mg INHALATION Q4H #30 nebu Is patient prescribed a controlled substance at d/c from ED?: No Referrals: Eriberto Nassar MD [Primary Care Provider] - 1-2 days Time of Disposition: 14:26
[2019-02-07 14:35] VITALS: BP 117/78; RESP 16; TEMP 98.1
== END 2019-02-07 14:35 | disposition home or self-care (01) ==
LOC: EC 10:25
DX: R06.02 Shortness of breath (principal); R07.81 Pleurodynia; R05 Cough; R09.89 Other specified symptoms and signs involving the circulatory and respiratory systems; H66.93 Otitis media, unspecified, bilateral; Z88.0 Allergy status to penicillin; Z88.6 Allergy status to analgesic agent; Z88.8 Allergy status to other drugs, medicaments and biological substances; Z91.013 Allergy to seafood; Z91.018 Allergy to other foods; Z91.048 Other nonmedicinal substance allergy status; Z87.828 Personal history of other (healed) physical injury and trauma
CPT/HCPCS: 99285; 36415; 93005; 85379; 80053; 85025; 85610; 85730; 81025; 71275; Q9967

== ENCOUNTER → 2019-02-07 | Outpatient (CLI) | payer OTHER | END | disposition home or self-care (01) | LOC: RADCTMAIN 09:56 | PROVIDERS: ATTEND Family Medicine | DX: Z53.9 Procedure and treatment not carried out, unspecified reason (principal) ==

== ENCOUNTER 2020-01-20 10:43 | Emergency (ER) | payer OTHER ==
[2020-01-20] MEDS ORDERED: SODIUM CHLORIDE 0.9% 2,000 ML IV STA (11:10)
[2020-01-20] MEDS ORDERED: ONDANSETRON 4 MG/2 ML VIAL IVP STA (11:23)
--- NOTE | 2020-01-20 11:24 | ED ---
Nausea/Vomiting/Diarrhea HPI - General Chief complaint: Nausea/Vomiting/Diarrhea Stated complaint: Feel like passing out Time Seen by Provider: 01/20/20 11:03 Source: patient, RN notes reviewed Mode of arrival: ambulatory Limitations: no limitations - History of Present Illness Initial comments: This a 34-year-old female presents emergency Department chief complaint of nausea vomiting abdominal discomfort. Patient states that she's been sick for over 2 weeks. Patient states that she is to have intermittent symptoms but states that recently she's been unable to keep anything down. Last 2 days no medications taken. Patient states that she has work a local [employer] as [employer] sick contacts. Patient denies any fevers or chills she's had prior appendectomy mental cycle 2 weeks ago denies any chance . Patient denies dysuria hematuria diarrhea she states she's had some mild constipation. No melena hematochezia. Patient was seen at [facility] urgent [facility] and sent for further evaluation. She was given 4 mg of Zofran ODT which she states did not help much. Patient states that she also had an EKG. - Related Data Home Medications Medication Instructions Recorded Confirmed OXcarbazepine [Trileptal] 300 mg PO BID 09/13/17 01/20/20 Zaleplon [Sonata] 10 mg PO HS 09/13/17 01/20/20 traZODone HCL 100 mg PO HS 09/13/17 01/20/20 Albuterol Sulfate [Ventolin HFA] 1 - 2 puff INHALATION RT-Q6H PRN 01/20/20 01/20/20 EPINEPHrine (Auto Inject) [Epipen] 0.3 mg IM ONCE PRN 01/20/20 01/20/20 Fluticasone Propion/Salmeterol 1 puff INHALATION RT-BID 01/20/20 01/20/20 [Wixela 250-50 Inhub] Lansoprazole 30 mg PO DAILY 01/20/20 01/20/20 Montelukast [Singulair] 10 mg PO HS 01/20/20 01/20/20 metFORMIN HCL [Glucophage] 500 mg PO BID 01/20/20 01/20/20 Previous Rx's Medication Instructions Recorded Ondansetron Odt [Zofran Odt] 4 mg PO Q8HR PRN #14 tab 01/20/20 Pantoprazole [Protonix] 40 mg PO ONCE #30 tablet. 01/20/20 Allergies Allergy/AdvReac Type Severity Reaction Status Date / Time aspirin Allergy Rash/Hives Verified 01/20/20 11:26 clindamycin Allergy Anaphylaxis Verified 01/20/20 11:26 coconut Allergy Anaphylaxis Verified 01/20/20 11:26 glyburide Allergy Anaphylaxis Verified 01/20/20 11:26 macadamia nut oil Allergy Anaphylaxis Verified 01/20/20 11:26 sunflower seed Allergy Anaphylaxis Verified 01/20/20 11:26 amoxicillin AdvReac Nausea & Verified 01/20/20 11:26 Vomiting & Diarrhea shellfish derived [Shellfish] AdvReac Nausea & Verified 01/20/20 11:26 Vomiting & Diarrhea Review of Systems ROS Statement: Those systems with pertinent positive or pertinent negative responses have been documented in the HPI. ROS Other: All systems not noted in ROS Statement are negative. Past Medical History Past Medical History: No Reported History History of Any Multi-Drug Resistant Organisms: None Reported Past Surgical History: Appendectomy, Orthopedic Surgery Additional Past Surgical History / Comment(s): ankle implant ( left side) Past Psychological History: No Psychological Hx Reported, Depression Smoking Status: Never smoker Past Alcohol Use History: None Reported Past Drug Use History: None Reported General Exam Limitations: no limitations General appearance: alert, in no apparent distress Head exam: Present: atraumatic, normocephalic, normal inspection Eye exam: Present: normal appearance, PERRL, EOMI. Absent: scleral icterus, conjunctival injection, periorbital swelling ENT exam: Present: normal exam, normal oropharynx, mucous membranes moist Neck exam: Present: normal inspection. Absent: tenderness, meningismus, lymphadenopathy Respiratory exam: Present: normal lung sounds bilaterally. Absent: respiratory distress, wheezes, rales, rhonchi, stridor Cardiovascular Exam: Present: regular rate, normal rhythm, normal heart sounds. Absent: systolic murmur, diastolic murmur, rubs, gallop, clicks GI/Abdominal exam: Present: soft, tenderness (Mild to moderate upper abdominal tenderness no lower abdominal tenderness), normal bowel sounds. Absent: distended, guarding, rebound, rigid Back exam: Absent: CVA tenderness (R), CVA tenderness (L) Neurological exam: Present: alert, oriented X3 Skin exam: Present: warm, dry, intact, normal color. Absent: rash Course Vital Signs 01/20/20 01/20/20 10:48 13:01 Temperature 98 F Pulse Rate 70 72 Respiratory 18 12 Rate Blood Pressure 109/74 110/55 O2 Sat by Pulse 100 100 Oximetry Medical Decision Making - Medical Decision Making 34-year-old female presents for nausea vomiting. Patient has had ongoing symptoms for 2+ weeks. Patient does have some history of heartburn. Ultrasound revealed no acute abnormality labs unremarkable urinalysis shows 4+ ketones. Patient states she feels greatly improved. Patient be discharged in stable condition with follow-up with GI. - Lab Data Result diagrams: 01/20/20 11:58 01/20/20 11:58 Lab Results 01/20/20 01/20/20 01/20/20 Range/Units 11:58 11:58 11:58 WBC 7.9 (3.8-10.6) k/uL RBC 4.62 (3.80-5.40) m/uL Hgb 14.4 (11.4-16.0) gm/dL Hct 43.3 (34.0-46.0) % MCV 93.7 (80.0-100.0) fL MCH 31.2 (25.0-35.0) pg MCHC 33.3 (31.0-37.0) g/dL RDW 11.8 (11.5-15.5) % Plt Count 240 (150-450) k/uL Neutrophils % 70 % Lymphocytes % 21 % Monocytes % 6 % Eosinophils % 2 % Basophils % 0 % Neutrophils # 5.5 (1.3-7.7) k/uL Lymphocytes # 1.7 (1.0-4.8) k/uL Monocytes # 0.5 (0-1.0) k/uL Eosinophils # 0.1 (0-0.7) k/uL Basophils # 0.0 (0-0.2) k/uL Sodium 137 (137-145) mmol/L Potassium 4.1 (3.5-5.1) mmol/L Chloride 104 (98-107) mmol/L Carbon Dioxide 24 (22-30) mmol/L Anion Gap 9 mmol/L BUN 11 (7-17) mg/dL Creatinine 0.61 (0.52-1.04) mg/dL Est GFR (CKD-EPI)AfAm >90 (>60 ml/min/1.73 sqM) Est GFR (CKD-EPI)NonAf >90 (>60 ml/min/1.73 sqM) Glucose 83 (74-99) mg/dL Plasma Lactic Acid [place] (0.7-2.0) mmol/L Calcium 9.2 (8.4-10.2) mg/dL Magnesium 2.0 (1.6-2.3) mg/dL Total Bilirubin 0.9 (0.2-1.3) mg/dL AST 56 H (14-36) U/L ALT 22 (4-34) U/L Alkaline Phosphatase 99 (38-126) U/L Total Protein 7.0 (6.3-8.2) g/dL Albumin 4.4 (3.5-5.0) g/dL Amylase 43 (30-110) U/L Lipase 36 (23-300) U/L Urine Color Yellow Urine Appearance Clear (Clear) Urine pH 6.0 (5.0-8.0) Ur Specific [place] 1.014 (1.001-1.035) Urine Protein Negative (Negative) Urine Glucose (UA) Negative (Negative) Urine Ketones 4+ H (Negative) Urine Blood Negative (Negative) Urine Nitrite Negative (Negative) Urine Bilirubin Negative (Negative) Urine Urobilinogen <2.0 (<2.0) mg/dL Ur Leukocyte Esterase Negative (Negative) Urine HCG, Qual (Not Detectd) 01/20/20 01/20/20 Range/Units 11:58 11:58 WBC (3.8-10.6) k/uL RBC (3.80-5.40) m/uL Hgb (11.4-16.0) gm/dL Hct (34.0-46.0) % MCV (80.0-100.0) fL MCH (25.0-35.0) pg MCHC (31.0-37.0) g/dL RDW (11.5-15.5) % Plt Count (150-450) k/uL Neutrophils % % Lymphocytes % % Monocytes % % Eosinophils % % Basophils % % Neutrophils # (1.3-7.7) k/uL Lymphocytes # (1.0-4.8) k/uL Monocytes # (0-1.0) k/uL Eosinophils # (0-0.7) k/uL Basophils # (0-0.2) k/uL Sodium (137-145) mmol/L Potassium (3.5-5.1) mmol/L Chloride (98-107) mmol/L Carbon Dioxide (22-30) mmol/L Anion Gap mmol/L BUN (7-17) mg/dL Creatinine (0.52-1.04) mg/dL Est GFR (CKD-EPI)AfAm (>60 ml/min/1.73 sqM) Est GFR (CKD-EPI)NonAf (>60 ml/min/1.73 sqM) Glucose (74-99) mg/dL Plasma Lactic Acid [place]hang 1.1 (0.7-2.0) mmol/L Calcium (8.4-10.2) mg/dL Magnesium (1.6-2.3) mg/dL Total Bilirubin (0.2-1.3) mg/dL AST (14-36) U/L ALT (4-34) U/L Alkaline Phosphatase (38-126) U/L Total Protein (6.3-8.2) g/dL Albumin (3.5-5.0) g/dL Amylase (30-110) U/L Lipase (23-300) U/L Urine Color Urine Appearance (Clear) Urine pH (5.0-8.0) Ur Specific [place] (1.001-1.035) Urine Protein (Negative) Urine Glucose (UA) (Negative) Urine Ketones (Negative) Urine Blood (Negative) Urine Nitrite (Negative) Urine Bilirubin (Negative) Urine Urobilinogen (<2.0) mg/dL Ur Leukocyte Esterase (Negative) Urine HCG, Qual Not Detected (Not Detectd) Disposition Clinical Impression: Nausea & vomiting, Dehydration, Gastritis Disposition: HOME SELF-CARE Condition: Stable Instructions (If sedation given, give patient instructions): Acute Nausea and Vomiting (ED), Gastritis (ED), Diet for Stomach Ulcers and Gastritis (ED) Additional Instructions: Please return to the Emergency Department if symptoms worsen or any other concerns. Prescriptions: Pantoprazole [Protonix] 40 mg PO ONCE #30 tablet. Ondansetron Odt [Zofran Odt] 4 mg PO Q8HR PRN #14 tab PRN Reason: Nausea Is patient prescribed a controlled substance at d/c from ED?: No Referrals: Eriberto Nassar MD [Primary Care Provider] - 1-2 days Abbie Perez MD [STAFF PHYSICIAN] - 1-2 days Time of Disposition: 14:20
[2020-01-20 12:07] LABS: Basophils % (A) 0 %; Eosinophils # (A) 0.1 k/uL (0-0.7); Eosinophils % (A) 2 %; HCT 43.3 % (34.0-46.0); HGB 14.4 gm/dL (11.4-16.0); Lymphocytes # (A) 1.7 k/uL (1.0-4.8); Lymphocytes % (A) 21 %; MCH 31.2 pg (25.0-35.0); MCHC 33.3 g/dL (31.0-37.0); MCV 93.7 fL (80.0-100.0); Mean Platelet Volume 7.3; Monocytes # (A) 0.5 k/uL (0-1.0); Monocytes % (A) 6 %; Neutrophils # (A) 5.5 k/uL (1.3-7.7); Neutrophils % (A) 70 %; Platelet Count 240 k/uL (150-450); RBC 4.62 m/uL (3.80-5.40); RDW 11.8 % (11.5-15.5); WBC 7.9 k/uL (3.8-10.6)
[2020-01-20 12:18] LABS: ALT 22 U/L (4-34); AST 56 U/L (14-36); African American GFR (CKD) >90 (>60 ml/min/1.73 sqM); Albumin 4.4 g/dL (3.5-5.0); Alkaline Phosphatase 99 U/L (38-126); Amylase 43 U/L (30-110); Anion Gap 9 mmol/L; Blood Urea Nitrogen 11 mg/dL (7-17); Calcium 9.2 mg/dL (8.4-10.2); Carbon Dioxide 24 mmol/L (22-30); Chloride 104 mmol/L (98-107); Glucose 83 mg/dL (74-99); Non-African American GFR(CKD) >90 (>60 ml/min/1.73 sqM); Potassium 4.1 mmol/L (3.5-5.1); Sodium 137 mmol/L (137-145); Total Bilirubin 0.9 mg/dL (0.2-1.3)
--- NOTE | 2020-01-20 12:44 | US ---
EXAMINATION TYPE: US gallbladder DATE OF EXAM: 01/20/2020 COMPARISON: NONE CLINICAL HISTORY: nausea, pain. Difficult exam as patient cannot handle probe pressure in epigastric area EXAM MEASUREMENTS: Liver Length: 12.9 cm Gallbladder Wall: 0.2 cm CBD: 0.5 cm Right Kidney: 10.3 x 4.5 x 4.8 cm Pancreas: Obscured by bowel gas, visualized portions wnl Liver: wnl Gallbladder: wnl Evidence for sonographic Alex's sign: Yes CBD: wnl as visualized Right Kidney: No hydronephrosis or masses seen Suboptimal study due to patient's lack of pain tolerance. Gallbladder shows no shadowing mobile stone s. No suspicious wall thickening or surrounding fluid. Visualized liver and right kidney unremarkable . IMPRESSION: Suboptimal study but no shadowing mobile gallstones or ultrasound evidence for acute chol ecystitis.
[2020-01-20] MEDS ORDERED: FAMOTIDINE 20 MG/2 ML VIAL IV STA (12:45)
[2020-01-20] MEDS ORDERED: METOCLOPRAMIDE 5 MG/ML 2 ML VIAL IVP STA (12:47)
[2020-01-20] MEDS ORDERED: diphenhydrAMINE 50 MG/ML 1 ML VIAL IVP STA (12:47)
[2020-01-20 13:43] LABS: Appearance,Urine Clear (Clear); Bilirubin,Urine Negative (Negative); Blood,Urine Negative (Negative); Color,Urine Yellow; Glucose,Urine (UA) Negative (Negative); Ketones,Urine 4+ (Negative); Leukocyte Esterase,Urine Negative (Negative); Nitrite,Urine Negative (Negative); Protein,Urine Negative (Negative); Specific Gravity,Urine 1.014 (1.001-1.035); Urobilinogen,Urine <2.0 mg/dL (<2.0)
[2020-01-20 14:34] VITALS: BP 115/75; PULSE 65; RESP 14; TEMP 98.3
== END 2020-01-20 14:36 | disposition home or self-care (01) ==
LOC: EC 10:43
DX: K29.70 Gastritis, unspecified, without bleeding (principal); E86.0 Dehydration; Z88.0 Allergy status to penicillin; Z88.1 Allergy status to other antibiotic agents; Z88.6 Allergy status to analgesic agent; Z88.8 Allergy status to other drugs, medicaments and biological substances; Z91.013 Allergy to seafood; Z91.018 Allergy to other foods; Z90.49 Acquired absence of other specified parts of digestive tract
CPT/HCPCS: 36415; 80053; 82150; 83605; 83690; 83735; 85025; 81003; 81025; 76705; 99284; 96374; 96375 ×3; 96361 ×2; J1200; J2765; J2405

== ENCOUNTER 2020-03-31 09:21 | Day surgery (SDC) | payer OTHER ==
[2020-03-29 15:44] VITALS: BMI 36.3
[~2020-03-31 09:21] MED LIST: LACTATED RINGERS 1,000 ML IV SCH
[2020-03-31 09:40] VITALS: TEMP 97.8
[2020-03-31] MEDS ORDERED: LACTATED RINGERS 1,000 ML IV ONE (09:45)
[2020-03-31] MEDS ORDERED: LIDOCAINE 1% (10MG/ML) FOR IV START INTRADERMA ONE (09:45)
[2020-03-31] MEDS ORDERED: PROPOFOL 10 MG/ML 20 ML VIAL IV ONE (10:29)
[2020-03-31] MEDS ORDERED: LIDOCAINE 1% INJ 10MG/ML (20 ML MDV) ONE (10:29)
--- NOTE | 2020-03-31 10:37 | P.PCN ---
Date of Procedure: 03/31/20 Procedure(s) Performed: BRIEF HISTORY: Patient is a 35-year-old, pleasant, schedule for an upper endoscopy as part of evaluation long-standing history of GERD. Lately her symptoms have been progressively getting worse. Cardiovascular Is a 30 mg daily with not much help. She is scheduled for an upper endoscopy were complicated reflux disease. PROCEDURE PERFORMED: Esophagogastroduodenoscopy with biopsy. PREOPERATIVE DIAGNOSIS: Long-standing history of GERD. IV sedation per anesthesia. PROCEDURE: After informed consent was obtained, the patient was brought into the endoscopy unit. IV sedation was administered by Anesthesia under continuous monitoring. Initially the Olympus GIF-140 video endoscope was inserted into the mouth. Esophagus intubated without any difficulty. It was gradually advanced into the stomach and duodenum and carefully examined. The bulb and the second part of the duodenum appeared normal. The scope at this time was withdrawn to the stomach, adequately insufflated with air, and upon careful examination, mucosa of the antrum, had mild gastritis and biopsies were done from this area. The body, cardia and the fundus appeared normal. The scope was then withdrawn into the esophagus. The GE junction was located at 41 cm from the incisors. The esophagus appeared normal. There were no erosions or ulcerations seen and no biopsies were done from the distal esophagus and the patient tolerated the procedure well. IMPRESSION: 1. Mild antral gastritis. 2. No evidence of esophagitis or Corey's esophagus. RECOMMENDATIONS: The findings of this examination were discussed with the patient as well his family. He was advised to follow with the biopsy results. She was advised to increase lansaprazole to 20 mg twice daily and follow antireflux measures.
[2020-03-31 10:45] VITALS: RESP 16
[2020-03-31 11:00] VITALS: BP 112/68; PULSE 72
== END 2020-03-31 11:28 | disposition home or self-care (01) ==
LOC: ORWHC2ENDO 09:21
PROVIDERS: ATTEND Internal Medicine Gastroenterology
DX: K29.70 Gastritis, unspecified, without bleeding (principal); K21.9 Gastro-esophageal reflux disease without esophagitis; J45.909 Unspecified asthma, uncomplicated; Z88.6 Allergy status to analgesic agent; Z88.0 Allergy status to penicillin; Z91.013 Allergy to seafood; Z88.1 Allergy status to other antibiotic agents; Z79.899 Other long term (current) drug therapy; Z88.8 Allergy status to other drugs, medicaments and biological substances
CPT/HCPCS: 81025; 88305; 43239; J2001; J2704

== ENCOUNTER → 2020-05-20 | Outpatient (CLI) | payer OTHER ==
[2020-05-20 11:08] LABS: Basophils % (A) 0 %; Eosinophils % (A) 0 %; HCT 44.2 % (34.0-46.0); HGB 14.4 gm/dL (11.4-16.0); Lymphocytes # (A) 1.8 k/uL (1.0-4.8); Lymphocytes % (A) 21 %; MCH 30.5 pg (25.0-35.0); MCHC 32.5 g/dL (31.0-37.0); MCV 93.9 fL (80.0-100.0); Mean Platelet Volume 7.2; Monocytes # (A) 0.4 k/uL (0-1.0); Monocytes % (A) 5 %; Neutrophils # (A) 6.1 k/uL (1.3-7.7); Neutrophils % (A) 73 %; Platelet Count 290 k/uL (150-450); RBC 4.71 m/uL (3.80-5.40); RDW 12.3 % (11.5-15.5); WBC 8.4 k/uL (3.8-10.6)
== END | disposition home or self-care (01) ==
LOC: LABPAT 10:15
PROVIDERS: ATTEND Obstetrics & Gynecology Obstetrics
DX: Z01.818 Encounter for other preprocedural examination (principal); N84.1 Polyp of cervix uteri
CPT/HCPCS: 36415; 85025

== ENCOUNTER 2020-06-01 07:04 | Day surgery (SDC) | payer OTHER ==
--- NOTE | 2020-05-27 17:18 | HP ---
HISTORY AND PHYSICAL DATE OF SURGERY: 06/01/2020 HISTORY OF PRESENT ILLNESS: This is a 35-year-old female who presented for ultrasound secondary to increasing ovarian cyst. Prior ultrasound had revealed an endometrial polyp that was noted to be in the lower segment. We had hoped that during that upcoming menstrual cycle it would shed, but it has not. Patient is noting postcoital bleeding in addition. She and her have been trying for in addition. PAST MEDICAL HISTORY: Significant for asthma and a stomach ulcer. PAST SURGICAL HISTORY: Ankle surgery, appendectomy. MEDICATIONS: She is on iron. She is on Singulair 10 mg. She is on oxcarbazepine 300 mg. She is on Protonix 40 mg delayed-release daily. She is on trazodone and she is on Zaleplon 10 mg. ALLERGIES: She is ALLERGIC to AMOXICILLIN, BACTRIM, CLINDAMYCIN AND GLYBURIDE. FAMILY HISTORY: Noncontributory. MANAGER ENVIRONMENTAL HEALTH AND SAFETY HISTORY: She is a 1, para 0. She states her menstrual cycles are regular, occurring every 28-30 days, lasting 4-5 days, medium and light without clots. She denies dysmenorrhea. As stated above, she does note postcoital bleeding. 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 She does note caffeine use but denies illicit drug use. REVIEW OF SYSTEMS: She denies fevers, chills, nausea, vomiting. On genitourinary, she admits to postcoital bleeding but denies urinary urgency, frequency, dysuria, dyspareunia, menorrhagia or vaginal discharge. PHYSICAL EXAMINATION: Vital signs are noted to be stable. In general this is a well-nourished, well- developed, non- female in no acute distress. Breathing is noted to be nonlabored. Heart has a regular rate and rhythm. Her abdomen is soft, nontender to palpation. No guarding is appreciated. On genitourinary exam, external genitalia is normal for age. There are no discharge or inflammatory lesions. Vagina is noted to be pink and well rugated. The bladder is noted to be nontender to palpation. The cervix is noted to be healthy and nontender. No discharge is appreciated. The uterus is noted to be nontender to palpation, midline and mobile. There are no adnexal masses appreciated. ASSESSMENT: 1. Endometrial polyp. 2. Family planning. PLAN: Hysteroscopy, D and C, get an endometrial polyp and evaluation of endometrial cavity. The procedure was reviewed and all questions were answered. Will plan hysteroscopy with dilation and curettage for Chanel Bravo to be done on 06/01/2020. MMODL / IJN: [id number] /
[2020-05-28 10:15] VITALS: BMI 36.0
[~2020-06-01 07:04] MED LIST changes: +DEXAMETHASONE SOD PHOSPHATE 4 MG/ML 1 ML VIAL IV ONE; +HYDROmorphone 0.5 MG/0.5 ML SYRINGE IVP PRN; +LIDOCAINE 1% (10MG/ML) FOR IV START INTRADERMA PRN; +MIDAZOLAM 2 MG/2 ML VIAL IV PRN; +ONDANSETRON 4 MG/2 ML VIAL IVP ONE; +Pre Op ABX Message 1 EACH MISC MISCELLANE ONE; +fentaNYL (PF) 50 MCG/ML 2 ML AMP IV PRN
[2020-06-01] MEDS ORDERED: LIDOCAINE 1% INJ 10MG/ML (20 ML MDV) ONE (08:21)
[2020-06-01] MEDS ORDERED: fentaNYL (PF) 50 MCG/ML 2 ML AMP ONE (08:21)
[2020-06-01] MEDS ORDERED: MIDAZOLAM 2 MG/2 ML VIAL ONE (08:21)
[2020-06-01] MEDS ORDERED: PROPOFOL 10 MG/ML 20 ML VIAL IV ONE (08:21)
[2020-06-01] MEDS ORDERED: SUCCINYLCHOLINE CHLORIDE 100 MG/5 ML SYR IV ONE (08:21)
[2020-06-01] MEDS ORDERED: KETOROLAC 15 MG/ML 1 ML VIAL ONE (08:21)
[2020-06-01] MEDS ORDERED: IV FLUID CONTINUATION 1,000 ML IV ONE (08:25)
[2020-06-01 09:02] VITALS: RESP 16; TEMP 97
--- NOTE | 2020-06-01 09:16 | P.OP ---
Date of Procedure: 06/01/20 Preoperative Diagnosis: Postcoital bleeding, endometrial polyp Postoperative Diagnosis: Same Procedure(s) Performed: Hysteroscopy, dilation and curettage Anesthesia: GETA Surgeon: Jovita Gibbs Estimated Blood Loss (ml): 5 IV fluids (ml): 500 Urine output (ml): 100 Pathology: other (Endometrial curettings) Condition: stable Disposition: PACU Indications for Procedure: Postcoital bleeding along with known endometrial polyp Operative Findings: Cavity appeared proliferative nature small in vitro polyp is noted. Description of Procedure: Patient is seen back to the operating suite where general anesthesia was obtained without difficulty by the anesthesia department. She is prepped and draped in normal sterile fashion in the dorsal lithotomy position. A regular catheter is used to drain the bladder clear yellow urine. A weighted speculum posterior vaginal vault intralipids the cervix is visualized and grasped with single-tooth tenaculum. Endocervical canal was then serially dilated. The cavity is then sounded to 87 m. The hysteroscope was placed through the cervix and toward the and Wendie cavity the above-noted findings are visualized. Sharp curettage was then performed until gritty texture was noted in all 4 quadrants of the Wendie cavity. The specimens and sent to pathology for analysis. The cecal tooth tenaculum was taken off of the anterior lip of the cervix hemostasis was appreciated. All inserts were removed from the patient's vaginal vault. All counts were noted be correct 2 within the procedure. Patient tolerated procedure well and was taken the recovery room awake in stable condition.
[2020-06-01 10:28] VITALS: BP 108/75; PULSE 75
== END 2020-06-01 10:50 | disposition home or self-care (01) ==
LOC: OR 07:04
PROVIDERS: ATTEND Obstetrics & Gynecology Obstetrics
DX: N84.0 Polyp of corpus uteri (principal); N93.0 Postcoital and contact bleeding; J45.909 Unspecified asthma, uncomplicated; I10 Essential (primary) hypertension; F32.9 Major depressive disorder, single episode, unspecified; K21.9 Gastro-esophageal reflux disease without esophagitis; Z88.0 Allergy status to penicillin; Z88.2 Allergy status to sulfonamides; Z88.1 Allergy status to other antibiotic agents; Z88.8 Allergy status to other drugs, medicaments and biological substances; Z87.11 Personal history of peptic ulcer disease; Z98.890 Other specified postprocedural states; Z90.49 Acquired absence of other specified parts of digestive tract; Z79.899 Other long term (current) drug therapy; Z31.69 Encounter for other general counseling and advice on procreation; Z88.6 Allergy status to analgesic agent
CPT/HCPCS: 81025; 88305; 84703; 58558; J2250; J2001; J3010; J1885; J0330; J2704

== ENCOUNTER → 2022-05-02 | Outpatient (CLI) | payer BC ==
--- NOTE | 2022-05-02 10:28 | US ---
EXAMINATION TYPE: US abdomen complete DATE OF EXAM: 05/02/2022 COMPARISON: 01/20/2020 CLINICAL HISTORY: 37-year-old female R10.13 EPIGASTRIC PAIN. Epigastric pain. Hx appendectomy. TECHNIQUE: Multiple sonographic images of the abdomen are obtained. FINDINGS: EXAM MEASUREMENTS: Liver Length: 15.0 cm Gallbladder Wall: 0.19 cm CBD: 0.45 cm Spleen: 9.4 cm Right Kidney: 10.9 x 5.2 x 4.5 cm Left Kidney: 10.7 x 5.1 x 5.5 cm HUMAN SERVICE COORDINATOR NOTES: Limited due to overlying bowel gas Pancreas: Suboptimal visualization of the pancreatic tail due to shadowing from bowel gas. Visualized portions show no gross abnormality. Liver: Slight coarsened appearance with increased echogenicity. No focal lesion. Gallbladder: Numerous gallstones measuring up to 1.2 cm. No abnormal gallbladder distention, wall th ickening, or surrounding fluid. Evidence for sonographic Alex's sign: Patient did feel pain while scanning over the gallbladder CBD: Portions seen appear wnl Spleen: Limited Right Kidney: No hydronephrosis or masses seen Left Kidney: No hydronephrosis or masses seen Upper IVC: Slightly limited visibility Abd Aorta: Portions seen appear wnl. Iliacs were obscured. IMPRESSION: 1. There may be mild fatty infiltration of the liver or other nonspecific hepatocellular disease. The ultrasound appearance shows some coarsening of the parenchyma and slight increased echogenicity. 2. Cholelithiasis with stones measuring up to 1.2 cm. No ancillary findings of acute cholecystitis. 3. No biliary ductal dilatation.
== END | disposition home or self-care (01) ==
LOC: RADUSWWP 07:34
PROVIDERS: ATTEND Family Medicine
DX: K80.20 Calculus of gallbladder without cholecystitis without obstruction (principal)
CPT/HCPCS: 76700

== ENCOUNTER 2022-05-04 16:44 | Emergency (ER) | payer BC ==
[2022-05-04 16:53] VITALS: TEMP 98
[2022-05-04] MEDS ORDERED: ONDANSETRON 4 MG/2 ML VIAL IVP STA (17:42)
[2022-05-04] MEDS ORDERED: SODIUM CHLORIDE 0.9% 1,000 ML IV STA (17:42)
--- NOTE | 2022-05-04 17:48 | ED ---
Abdominal Pain HPI - General Chief Complaint: Abdominal Pain Stated Complaint: stomach pain Time Seen by Provider: 05/04/22 17:40 Source: patient, RN notes reviewed, old records reviewed Mode of arrival: ambulatory Limitations: no limitations - History of Present Illness Initial Comments: 37-year-old female presents to the emergency room with complaints of right upper quadrant pain. Patient states that she's been having ongoing intermittent pain since February. Had an ultrasound done last week showing cholelithiasis with no cholecystitis. States that she just wants to have her gallbladder removed. Does have a history of GERD and asthma surgical history of appendectomy. MD Complaint: abdominal pain -: month(s) Location: RUQ Improves With: nothing Worsens With: eating Context: other (Diagnosed with cholelithiasis) Associated Symptoms: nausea, vomiting - Related Data Home Medications Medication Instructions Recorded Confirmed Albuterol Sulfate [Ventolin HFA] 2 puff INHALATION RT-Q6H PRN 01/20/20 05/04/22 Lansoprazole 60 mg PO DAILY 01/20/20 05/04/22 Ammonium Lactate Lotion 1 applic TOPICAL BID PRN 05/04/22 05/04/22 [Lac-Hydrin 12% Lotion] Atogepant [Qulipta] 60 mg PO DAILY 05/04/22 05/04/22 Dextroamphetamine/Amphetamine 25 mg PO DAILY 05/04/22 05/04/22 [Adderall Xr 25 mg Capsule] Fluticasone Propion/Salmeterol 1 puff INHALATION RT-BID 05/04/22 05/04/22 [Wixela 250-50 Inhub] Metoclopramide [Reglan] 10 mg PO ACHS PRN 05/04/22 05/04/22 Montelukast [Singulair] 10 mg PO DAILY 05/04/22 05/04/22 Pantoprazole [Protonix] 40 mg PO BID 05/04/22 05/04/22 Vortioxetine Hydrobromide 10 mg PO DAILY 05/04/22 05/04/22 [Trintellix] Zaleplon [Sonata] 5 mg PO HS 05/04/22 05/04/22 hydrOXYzine pamoate [Vistaril] 50 mg PO BID 05/04/22 05/04/22 Allergies Allergy/AdvReac Type Severity Reaction Status Date / Time aspirin Allergy Rash/Hives Verified 06/01/20 07:19 clindamycin Allergy Anaphylaxis Verified 06/01/20 07:19 coconut Allergy Anaphylaxis Verified 06/01/20 07:19 glyburide Allergy Anaphylaxis Verified 06/01/20 07:19 macadamia nut oil Allergy Anaphylaxis Verified 06/01/20 07:19 sunflower seed Allergy Anaphylaxis Verified 06/01/20 07:19 amoxicillin AdvReac Nausea & Verified 06/01/20 07:19 Vomiting & Diarrhea shellfish derived [Shellfish] AdvReac Nausea & Verified 06/01/20 07:19 Vomiting & Diarrhea Review of Systems ROS Statement: Those systems with pertinent positive or pertinent negative responses have been documented in the HPI. ROS Other: All systems not noted in ROS Statement are negative. Past Medical History Past Medical History: Asthma, GERD/Reflux Additional Past Medical History / Comment(s): LOW IRON, STATES NAUSEA AND "SQUEEZING PAIN" IN HER STOMACH. UTERINE POLYP gall stones History of Any Multi-Drug Resistant Organisms: None Reported Past Surgical History: Appendectomy, Orthopedic Surgery Additional Past Surgical History / Comment(s): ankle implant ( left side), EGD Past Anesthesia/Blood Transfusion Reactions: No Reported Reaction Past Psychological History: Anxiety, Depression Smoking Status: Never smoker - Past Family History Mother Family Medical History: No Reported History General Exam Limitations: no limitations General appearance: alert, in no apparent distress Head exam: Present: atraumatic Eye exam: Present: normal appearance. Absent: scleral icterus, conjunctival injection Respiratory exam: Absent: respiratory distress, accessory muscle use Cardiovascular Exam: Present: tachycardia GI/Abdominal exam: Present: soft, tenderness (Right upper quadrant). Absent: distended, rigid Extremities exam: Present: normal capillary refill. Absent: pedal edema Neurological exam: Present: alert, oriented X3 Psychiatric exam: Present: normal affect, normal mood Skin exam: Present: warm, dry, normal color. Absent: cyanosis, diaphoretic, pal tonya Course Vital Signs 05/04/22 05/04/22 16:50 19:11 Temperature 98 F Pulse Rate 110 H 71 Respiratory 20 15 Rate Blood Pressure 122/70 103/74 O2 Sat by Pulse 100 100 Oximetry Medical Decision Making - Medical Decision Making Labs show an AST of 258, ALT 70, alk phos 280, amylase and lipase within normal limits. Mild leukocytosis likely from patient's vomiting. She has been afebrile. Ultrasound was performed 2 days ago showing cholelithiasis with stones measuring up to 1.2 cm no evidence of ductal dilatation or cholecystitis. She was given Zofran IV fluids. No vomiting in the emergency room. On exam abdomen is minimally tender right upper quadrant. She'll be discharged home to follow up with surgery for possible cholecystectomy. She was directed to follow a gallbladder friendly diet. Return to the emergency room with any new or concerning symptoms or any increased pain, fever or persistent nausea vomiting. She is agreeable to this plan of care. Case was discussed with Dr. Riley. Was pt. sent in by a medical professional or institution? @ -no Did you speak to anyone other than the patient for history? @ -edgar Did you review nursing and triage notes? @ yes i agree Were old charts reviewed? @ -yes ultrasound and labs Differential Diagnosis? @ -Differential Abdominal Pain Women: Appendicitis, Cholecystitis, diverticulosis, ischemic bowel, pancreatitis, hepatitis, UTI, gastroenteritis, AAA, incarcerated hernia, bowel obstruction, constipation, inflammatory bowel, hepatitis, peptic ulcer disease, splenic infarction, perforated viscus, vulvitis, ovarian torsion, PID, kidney stone, placenta abruption, this is not meant to be an all-inclusive list What testing was considered but not performed? (CT, X-rays, U/S, labs)? Why? @ u/s considered however was performed 2 days ago with no significant increase in labs to suggest cholecystitis necessitating repeat imaging What meds were considered but not given? Why? @ -no Did you discuss the management of the patient with other professionals? @ -no Did you reconcile home meds? @ -no Was smoking cessation discussed for >3mins.? @ -no Was critical care preformed (if so, how long)? @ -no Were there social determinants of health that impacted care today? How? (Homelessness, low income, unemployed, alcoholism, drug addiction, transportation, low edu. Level, literacy, decrease access to med. care, care home, rehab)? @ -none Was there de-escalation of care discussed even if they declined? (Discuss DNR or withdrawal of care, Hospice)? @ -no What co-morbidities impacted this encounter? (DM, HTN, Smoking, COPD, CAD, Cancer, CVA, Hep., AIDS, mental health diagnosis, sleep apnea, morbid obesity)? @ -Asthma, GERD Was patient admitted / discharged? @ -discharged Undiagnosed new problem with uncertain prognosis? @ -no Drug Therapy requiring intensive monitoring for toxicity (Heparin, Nitro, Insulin, Cardizem)? @ -no Were any procedures done? @ -no Diagnosis/symptom? @ -Cholelithiasis Acute, or Chronic, or Acute on Chronic? @ -acute on chronic Uncomplicated (without systemic symptoms) or Complicated (systemic symptoms)? @ -Uncomplicated Side effects of treatment? @ -[none] Exacerbation, Progression, or Severe Exacerbation] @ -[no] Poses a threat to life or bodily function? @ -[no] - Lab Data Result diagrams: 05/04/22 18:04 05/04/22 18:04 Lab Results 05/04/22 05/04/22 05/04/22 Range/Units 18:04 18:04 18:04 WBC 10.9 H (3.8-10.6) k/uL RBC 4.48 (3.80-5.40) m/uL Hgb 13.5 (11.4-16.0) gm/dL Hct 40.7 (34.0-46.0) % MCV 90.8 (80.0-100.0) fL MCH 30.2 (25.0-35.0) pg MCHC 33.2 (31.0-37.0) g/dL RDW 12.2 (11.5-15.5) % Plt Count 323 (150-450) k/uL MPV 7.6 Neutrophils % 72 % Lymphocytes % 20 % Monocytes % 7 % Eosinophils % 1 % Basophils % 0 % Neutrophils # 7.9 H (1.3-7.7) k/uL Lymphocytes # 2.1 (1.0-4.8) k/uL Monocytes # 0.7 (0-1.0) k/uL Eosinophils # 0.1 (0-0.7) k/uL Basophils # 0.0 (0-0.2) k/uL PT 9.7 (9.0-12.0) sec INR 0.9 (<1.2) APTT 23.3 (22.0-30.0) sec Sodium 139 (137-145) mmol/L Potassium 4.2 (3.5-5.1) mmol/L Chloride 106 (98-107) mmol/L Carbon Dioxide 29 (22-30) mmol/L Anion Gap 4 mmol/L BUN 11 (7-17) mg/dL Creatinine 0.64 (0.52-1.04) mg/dL Est GFR (CKD-EPI)AfAm >90 (>60 ml/min/1.73 sqM) Est GFR (CKD-EPI)NonAf >90 (>60 ml/min/1.73 sqM) Glucose 89 (74-99) mg/dL Plasma Lactic Acid Khang (0.7-2.0) mmol/L Calcium 8.6 (8.4-10.2) mg/dL Total Bilirubin 0.8 (0.2-1.3) mg/dL AST 258 H (14-36) U/L ALT 78 H (4-34) U/L Alkaline Phosphatase 280 H (38-126) U/L Total Protein 6.5 (6.3-8.2) g/dL Albumin 4.0 (3.5-5.0) g/dL Amylase 63 (30-110) U/L Lipase 66 (23-300) U/L 05/04/22 Range/Units 18:04 WBC (3.8-10.6) k/uL RBC (3.80-5.40) m/uL Hgb (11.4-16.0) gm/dL Hct (34.0-46.0) % MCV (80.0-100.0) fL MCH (25.0-35.0) pg MCHC (31.0-37.0) g/dL RDW (11.5-15.5) % Plt Count (150-450) k/uL MPV Neutrophils % % Lymphocytes % % Monocytes % % Eosinophils % % Basophils % % Neutrophils # (1.3-7.7) k/uL Lymphocytes # (1.0-4.8) k/uL Monocytes # (0-1.0) k/uL Eosinophils # (0-0.7) k/uL Basophils # (0-0.2) k/uL PT (9.0-12.0) sec INR (<1.2) APTT (22.0-30.0) sec Sodium (137-145) mmol/L Potassium (3.5-5.1) mmol/L Chloride (98-107) mmol/L Carbon Dioxide (22-30) mmol/L Anion Gap mmol/L BUN (7-17) mg/dL Creatinine (0.52-1.04) mg/dL Est GFR (CKD-EPI)AfAm (>60 ml/min/1.73 sqM) Est GFR (CKD-EPI)NonAf (>60 ml/min/1.73 sqM) Glucose (74-99) mg/dL Plasma Lactic Acid Khang 1.1 (0.7-2.0) mmol/L Calcium (8.4-10.2) mg/dL Total Bilirubin (0.2-1.3) mg/dL AST (14-36) U/L ALT (4-34) U/L Alkaline Phosphatase (38-126) U/L Total Protein (6.3-8.2) g/dL Albumin (3.5-5.0) g/dL Amylase (30-110) U/L Lipase (23-300) U/L Disposition Clinical Impression: Cholelithiasis Disposition: HOME SELF-CARE Condition: Good Instructions (If sedation given, give patient instructions): Gallstones (ED) Additional Instructions: Follow-up with the surgeon regarding the possibility of having her gallbladder removed. Avoid high-fat foods, such as: Chocolate, whole milk, ice cream, processed cheese, and egg yolks. Fried, deep fried, or buttered foods. Sausage, salami, and gamez. Cinnamon rolls, cakes, pies, cookies, and other pastries. Prepared snack foods, such as potato chips, nut and granola bars, and mixed nuts. Return to the emergency room with any new or concerning symptoms including increased pain, persistent nausea vomiting or fevers. Is patient prescribed a controlled substance at d/c from ED?: No Referrals: Eriberto Nassar MD [Primary Care Provider] - 1-2 days Octavio Pascual MD [STAFF PHYSICIAN] - 1-2 days Time of Disposition: 18:59
[2022-05-04 18:20] LABS: Basophils % (A) 0 %; Eosinophils # (A) 0.1 k/uL (0-0.7); Eosinophils % (A) 1 %; HCT 40.7 % (34.0-46.0); HGB 13.5 gm/dL (11.4-16.0); Lymphocytes # (A) 2.1 k/uL (1.0-4.8); Lymphocytes % (A) 20 %; MCH 30.2 pg (25.0-35.0); MCHC 33.2 g/dL (31.0-37.0); MCV 90.8 fL (80.0-100.0); Mean Platelet Volume 7.6; Monocytes # (A) 0.7 k/uL (0-1.0); Monocytes % (A) 7 %; Neutrophils # (A) 7.9 k/uL (1.3-7.7); Neutrophils % (A) 72 %; Platelet Count 323 k/uL (150-450); RBC 4.48 m/uL (3.80-5.40); RDW 12.2 % (11.5-15.5); WBC 10.9 k/uL (3.8-10.6)
[2022-05-04 18:29] LABS: INR 0.9 (<1.2); Partial Thromboplastin Time 23.3 sec (22.0-30.0); Prothrombin Time 9.7 sec (9.0-12.0)
[2022-05-04 18:30] LABS: ALT 78 U/L (4-34); AST 258 U/L (14-36); African American GFR (CKD) >90 (>60 ml/min/1.73 sqM); Alkaline Phosphatase 280 U/L (38-126); Amylase 63 U/L (30-110); Anion Gap 4 mmol/L; Blood Urea Nitrogen 11 mg/dL (7-17); Calcium 8.6 mg/dL (8.4-10.2); Carbon Dioxide 29 mmol/L (22-30); Chloride 106 mmol/L (98-107); Glucose 89 mg/dL (74-99); Lipase 66 U/L (23-300); Non-African American GFR(CKD) >90 (>60 ml/min/1.73 sqM); Potassium 4.2 mmol/L (3.5-5.1); Sodium 139 mmol/L (137-145); Total Bilirubin 0.8 mg/dL (0.2-1.3); Total Protein 6.5 g/dL (6.3-8.2)
[2022-05-04 19:12] VITALS: BP 103/74; PULSE 71; RESP 15
== END 2022-05-04 19:09 | disposition home or self-care (01) ==
LOC: EC 16:44
DX: K80.20 Calculus of gallbladder without cholecystitis without obstruction (principal); K21.9 Gastro-esophageal reflux disease without esophagitis; J45.909 Unspecified asthma, uncomplicated; F41.9 Anxiety disorder, unspecified; F32.A Depression, unspecified; Z79.899 Other long term (current) drug therapy; Z91.013 Allergy to seafood; Z88.0 Allergy status to penicillin; Z88.8 Allergy status to other drugs, medicaments and biological substances; Z91.018 Allergy to other foods
CPT/HCPCS: 36415; 80053; 82150; 83605; 83690; 85025; 85610; 85730; 99283; 96374; 96361; J2405

== ENCOUNTER 2022-05-10 01:21 | Observation (INO) | payer BC ==
[2022-05-10] MEDS ORDERED: SODIUM CHLORIDE 0.9% 2,000 ML IV STA (01:26)
[2022-05-10] MEDS ORDERED: ONDANSETRON 4 MG/2 ML VIAL IVP STA (01:32)
[2022-05-10] MEDS ORDERED: HYDROmorphone 0.5 MG/0.5 ML SYRINGE IVP STA (01:32)
--- NOTE | 2022-05-10 01:34 | ED ---
Abdominal Pain HPI - General Chief Complaint: Abdominal Pain Stated Complaint: Abd Pain Time Seen by Provider: 05/10/22 01:26 Source: patient, RN notes reviewed Mode of arrival: wheelchair Limitations: no limitations - History of Present Illness Initial Comments: 37-year-old female presents emergency Department with chief complaint of abdominal pain. Patient has known cholelithiasis. Patient's been having increasing pain she states she's been in persistent pain for last 4 hours. Patient states started a few hours after eating. Patient scheduled see Dr. Pascual tomorrow. She states she cannot tolerate the pain she doesn't nausea no reports of fever. Patient denies dysuria hematuria no chance states pain rates her back, epigastric region. - Related Data Home Medications Medication Instructions Recorded Confirmed Albuterol Sulfate [Ventolin HFA] 2 puff INHALATION RT-Q6H PRN 01/20/20 05/04/22 Lansoprazole 60 mg PO DAILY 01/20/20 05/04/22 Ammonium Lactate Lotion 1 applic TOPICAL BID PRN 05/04/22 05/04/22 [Lac-Hydrin 12% Lotion] Atogepant [Qulipta] 60 mg PO DAILY 05/04/22 05/04/22 Dextroamphetamine/Amphetamine 25 mg PO DAILY 05/04/22 05/04/22 [Adderall Xr 25 mg Capsule] Fluticasone Propion/Salmeterol 1 puff INHALATION RT-BID 05/04/22 05/04/22 [Wixela 250-50 Inhub] Metoclopramide [Reglan] 10 mg PO ACHS PRN 05/04/22 05/04/22 Montelukast [Singulair] 10 mg PO DAILY 05/04/22 05/04/22 Pantoprazole [Protonix] 40 mg PO BID 05/04/22 05/04/22 Vortioxetine Hydrobromide 10 mg PO DAILY 05/04/22 05/04/22 [Trintellix] Zaleplon [Sonata] 5 mg PO HS 05/04/22 05/04/22 hydrOXYzine pamoate [Vistaril] 50 mg PO BID 05/04/22 05/04/22 Allergies Allergy/AdvReac Type Severity Reaction Status Date / Time aspirin Allergy Rash/Hives Verified 06/01/20 07:19 clindamycin Allergy Anaphylaxis Verified 06/01/20 07:19 coconut Allergy Anaphylaxis Verified 06/01/20 07:19 glyburide Allergy Anaphylaxis Verified 06/01/20 07:19 macadamia nut oil Allergy Anaphylaxis Verified 06/01/20 07:19 sunflower seed Allergy Anaphylaxis Verified 06/01/20 07:19 amoxicillin AdvReac Nausea & Verified 06/01/20 07:19 Vomiting & Diarrhea shellfish derived [Shellfish] AdvReac Nausea & Verified 06/01/20 07:19 Vomiting & Diarrhea Review of Systems ROS Statement: Those systems with pertinent positive or pertinent negative responses have been documented in the HPI. ROS Other: All systems not noted in ROS Statement are negative. Past Medical History Past Medical History: Asthma, GERD/Reflux Additional Past Medical History / Comment(s): LOW IRON, STATES NAUSEA AND "SQUEEZING PAIN" IN HER STOMACH. UTERINE POLYP gall stones History of Any Multi-Drug Resistant Organisms: None Reported Past Surgical History: Appendectomy, Orthopedic Surgery Additional Past Surgical History / Comment(s): ankle implant ( left side), EGD Past Anesthesia/Blood Transfusion Reactions: No Reported Reaction Past Psychological History: Anxiety, Depression Smoking Status: Never smoker Past Alcohol Use History: None Reported Past Drug Use History: None Reported - Past Family History Mother Family Medical History: No Reported History General Exam Limitations: no limitations General appearance: alert, in no apparent distress Head exam: Present: atraumatic, normocephalic, normal inspection Eye exam: Present: normal appearance, PERRL, EOMI. Absent: scleral icterus, conjunctival injection, periorbital swelling Respiratory exam: Present: normal lung sounds bilaterally. Absent: respiratory distress, wheezes, rales, rhonchi, stridor Cardiovascular Exam: Present: regular rate, normal rhythm, normal heart sounds. Absent: systolic murmur, diastolic murmur, rubs, gallop, clicks GI/Abdominal exam: Present: soft, tenderness, normal bowel sounds. Absent: distended, guarding, rebound, rigid Course Vital Signs 05/10/22 01:23 Temperature 97.9 F Pulse Rate 98 Respiratory 18 Rate Blood Pressure 120/89 O2 Sat by Pulse 100 Oximetry Medical Decision Making - Medical Decision Making Was pt. sent in by a medical professional or institution (, PA, MENTAL HEALTH COORDINATOR, urgent care, hospital, or [facility]...) When possible be specific @ -No Did you speak to anyone other than the patient for history (EMS, parent, family, police, friend...)? What history was obtained from this source @ -No Did you review nursing and triage notes (agree or disagree)? Why? @ -I reviewed and agree with nursing and triage notes Were old charts reviewed (outside hosp., previous admission, EMS record, old EKG, old radiological studies, urgent care reports/EKG's, [facility] records)? Report findings @ -Reviewed prior patient ultrasound and prior ER record Differential Diagnosis (chest pain, altered mental status, abdominal pain women, abdominal pain men, vaginal bleeding, weakness, fever, dyspnea, syncope, headache, dizziness, GI bleed, back pain, seizure, CVA, palpatations, mental health)? @ -Cholelithiasis, cholecystitis, abdominal pain, gastroenteritis, GERD, cirrhosis all-inclusive. EKG interpreted by me (3pts min.). @ -As above X-rays interpreted by me (1pt min.). @ -None done CT interpreted by me (1pt min.). @ -None done U/S interpreted by me (1pt. min.). @ -None done What testing was considered but not performed or refused? (CT, X-rays, U/S, labs)? Why? @ -None What meds were considered but not given or refused? Why? @ -None Did you discuss the management of the patient with other professionals (professionals i.e. , PA, MENTAL HEALTH COORDINATOR, lab, RT, psych nurse, dialysis social worker, cotton roll packer, teacher, homicide squad commanding officer, clinical case manager)? Give summary @ - surgeon Was smoking cessation discussed for >3mins.? @ -No Was critical care preformed (if so, how long)? @ -No Were there social determinants of health that impacted care today? How? (Homelessness, low income, unemployed, alcoholism, drug addiction, transp ortation, low edu. Level, literacy, decrease access to med. care, intermediate, rehab)? @ -No Was there de-escalation of care discussed even if they declined (Discuss DNR or withdrawal of care, Hospice)? DNR status @ -No What co-morbidities impacted this encounter? (DM, HTN, Smoking, COPD, CAD, Cancer, CVA, ARF, Chemo, Hep., AIDS, mental health diagnosis, sleep apnea, morbid obesity)? @ -None Was patient admitted / discharged? Hospital course, mention meds given and route, prescriptions, significant lab abnormalities, going to OR and other pertinent info. @ -Admitted patient has been having worsening abdominal pain, persistent abdominal pain with course and transaminitis, hyperbilirubinemia patient's case discussed with surgeon accepts admission started on IV antibiotics and by mouth diet Undiagnosed new problem with uncertain prognosis? @ -No Drug Therapy requiring intensive monitoring for toxicity (Heparin, Nitro, Insulin, Cardizem)? @ -No Were any procedures done? @ -No Diagnosis/symptom? @ -Cholelithiasis, cholecystitis Acute, or Chronic, or Acute on Chronic? @ -Acute Uncomplicated (without systemic symptoms) or Complicated (systemic symptoms)? @ -Uncomplicated Side effects of treatment? @ -No Exacerbation, Progression, or Severe Exacerbation? @ -No Poses a threat to life or bodily function? How? (Chest pain, [place], [place], pneumonia, PE, COPD, DKA, ARF, appy, cholecystitis, CVA, Diverticulitis, Homicidal, Suicidal, threat staff... and all critical care pts) @ -yesPatient has cholecystitis and cholelithiasis may lead to possible life- threatening condition] - Lab Data Result diagrams: 05/10/22 01:41 05/10/22 01:41 Lab Results 05/10/22 05/10/22 05/10/22 Range/Units 01:41 01:41 01:41 WBC 12.8 H (3.8-10.6) k/uL RBC 4.43 (3.80-5.40) m/uL Hgb 13.3 (11.4-16.0) gm/dL Hct 39.7 (34.0-46.0) % MCV 89.7 (80.0-100.0) fL MCH 30.1 (25.0-35.0) pg MCHC 33.5 (31.0-37.0) g/dL RDW 12.4 (11.5-15.5) % Plt Count 305 (150-450) k/uL MPV 7.5 Neutrophils % 79 % Lymphocytes % 11 % Monocytes % 8 % Eosinophils % 1 % Basophils % 0 % Neutrophils # 10.1 H (1.3-7.7) k/uL Lymphocytes # 1.4 (1.0-4.8) k/uL Monocytes # 1.1 H (0-1.0) k/uL Eosinophils # 0.1 (0-0.7) k/uL Basophils # 0.0 (0-0.2) k/uL Sodium 140 (137-145) mmol/L Potassium 3.6 (3.5-5.1) mmol/L Chloride 105 (98-107) mmol/L Carbon Dioxide 26 (22-30) mmol/L Anion Gap 9 mmol/L BUN 9 (7-17) mg/dL Creatinine 0.70 (0.52-1.04) mg/dL Est GFR (CKD-EPI)AfAm >90 (>60 ml/min/1.73 sqM) Est GFR (CKD-EPI)NonAf >90 (>60 ml/min/1.73 sqM) Glucose 84 (74-99) mg/dL Plasma Lactic Acid Khang 0.8 (0.7-2.0) mmol/L Calcium 8.7 (8.4-10.2) mg/dL Total Bilirubin 1.4 H (0.2-1.3) mg/dL AST 165 H (14-36) U/L ALT 69 H (4-34) U/L Alkaline Phosphatase 336 H (38-126) U/L Total Protein 6.2 L (6.3-8.2) g/dL Albumin 3.7 (3.5-5.0) g/dL Disposition Clinical Impression: Cholelithiasis, Intractable abdominal pain, Cholecystitis Disposition: ADMITTED IP TO THIS [facility] Condition: Fair Referrals: Eriberto Nassar MD [Primary Care Provider] - 1-2 days Time of Disposition: 02:57
[2022-05-10 01:53] LABS: Basophils % (A) 0 %; Eosinophils # (A) 0.1 k/uL (0-0.7); Eosinophils % (A) 1 %; HCT 39.7 % (34.0-46.0); HGB 13.3 gm/dL (11.4-16.0); Lymphocytes # (A) 1.4 k/uL (1.0-4.8); Lymphocytes % (A) 11 %; MCH 30.1 pg (25.0-35.0); MCHC 33.5 g/dL (31.0-37.0); MCV 89.7 fL (80.0-100.0); Mean Platelet Volume 7.5; Monocytes # (A) 1.1 k/uL (0-1.0); Monocytes % (A) 8 %; Neutrophils # (A) 10.1 k/uL (1.3-7.7); Neutrophils % (A) 79 %; Platelet Count 305 k/uL (150-450); RBC 4.43 m/uL (3.80-5.40); RDW 12.4 % (11.5-15.5); WBC 12.8 k/uL (3.8-10.6)
[2022-05-10 02:03] LABS: ALT 69 U/L (4-34); AST 165 U/L (14-36); African American GFR (CKD) >90 (>60 ml/min/1.73 sqM); Albumin 3.7 g/dL (3.5-5.0); Alkaline Phosphatase 336 U/L (38-126); Anion Gap 9 mmol/L; Blood Urea Nitrogen 9 mg/dL (7-17); Calcium 8.7 mg/dL (8.4-10.2); Carbon Dioxide 26 mmol/L (22-30); Chloride 105 mmol/L (98-107); Glucose 84 mg/dL (74-99); Non-African American GFR(CKD) >90 (>60 ml/min/1.73 sqM); Potassium 3.6 mmol/L (3.5-5.1); Sodium 140 mmol/L (137-145); Total Bilirubin 1.4 mg/dL (0.2-1.3); Total Protein 6.2 g/dL (6.3-8.2)
[2022-05-10] MEDS ORDERED: ONDANSETRON 4 MG/2 ML VIAL IVP PRN ×2 (02:57→08:13)
[2022-05-10] MEDS ORDERED: NALOXONE 0.4 MG/ML 1 ML VIAL IV PRN (02:57)
[2022-05-10 03:16] LABS: Amylase 2637 U/L (30-110)
[2022-05-10] MEDS: HYDROmorphone 0.5 MG/0.5 ML SYRINGE IVP PRN ×2 (03:21→10:03)
[2022-05-10 03:25] LABS: Lipase >20000 U/L (23-300)
[2022-05-10] MEDS ORDERED: METOCLOPRAMIDE 5 MG/ML 2 ML VIAL IVP STA (03:36)
[2022-05-10] MEDS: PIPERACILLIN-TAZOBACTAM 3.375 GM in SODIUM CHLORIDE 0.9% 100 ML IVPB SCH ×3 (03:41→17:58)
[2022-05-10] MEDS: SODIUM CHLORIDE 0.9% 1,000 ML IV SCH ×3 (04:46→17:45)
[2022-05-10 04:53] LABS: Appearance,Urine Clear (Clear); Bacteria,Urine Rare /hpf; Bilirubin,Urine Negative (Negative); Blood,Urine Negative (Negative); Color,Urine Yellow; Glucose,Urine (UA) Negative (Negative); Hyaline Casts,Urine 1 /lpf (0-2); Ketones,Urine Negative (Negative); Leukocyte Esterase,Urine Trace (Negative); Mucus,Urine Rare /hpf; Nitrite,Urine Negative (Negative); Protein,Urine Negative (Negative); RBC,Urine <1 /hpf (0-5); Specific Gravity,Urine 1.012 (1.001-1.035); Squamous Epithelial Cell,Urine <1 /hpf (0-4); WBC,Urine 3 /hpf (0-5)
[2022-05-10 08:42] LABS: HCT 38.7 % (34.0-46.0); HGB 12.7 gm/dL (11.4-16.0); MCHC 32.8 g/dL (31.0-37.0); MCV 91.4 fL (80.0-100.0); Mean Platelet Volume 7.4; Platelet Count 282 k/uL (150-450); RBC 4.23 m/uL (3.80-5.40); RDW 12.2 % (11.5-15.5); WBC 9.7 k/uL (3.8-10.6)
[2022-05-10 08:57] LABS: INR 0.9 (<1.2); Prothrombin Time 10.1 sec (9.0-12.0)
[2022-05-10 09:04] LABS: ALT 69 U/L (4-34); AST 111 U/L (14-36); African American GFR (CKD) >90 (>60 ml/min/1.73 sqM); Albumin 3.7 g/dL (3.5-5.0); Albumin/Globulin Ratio 1.5; Alkaline Phosphatase 331 U/L (38-126); Anion Gap 1 mmol/L; Blood Urea Nitrogen 10 mg/dL (7-17); Calcium 8.7 mg/dL (8.4-10.2); Carbon Dioxide 30 mmol/L (22-30); Chloride 107 mmol/L (98-107); Globulin 2.4 g/dL; Glucose 120 mg/dL (74-99); Non-African American GFR(CKD) >90 (>60 ml/min/1.73 sqM); Potassium 4.7 mmol/L (3.5-5.1); Sodium 138 mmol/L (137-145); Total Bilirubin 1.3 mg/dL (0.2-1.3); Total Protein 6.1 g/dL (6.3-8.2)
--- NOTE | 2022-05-10 10:01 | US ---
EXAMINATION TYPE: US gallbladder DATE OF EXAM: 05/10/2022 COMPARISON: Gallbladder ultrasound 01/20/2020, abdominal ultrasound 05/02/2022. CLINICAL HISTORY: gallstone pancreatitis evaluate CBD dilation. known stones, epi pain TECHNIQUE: Multiple sonographic images of the right upper quadrant are obtained. FINDINGS: EXAM MEASUREMENTS: Liver Length: 18.2 cm Gallbladder Wall: 0.4 cm CBD: 1.5 cm Right Kidney: 11.2 x 5.4 x 6.0 cm Pancreas: wnl Liver: wnl Gallbladder: stones seen within neck of GB, they did not move when rolled patient LLD Evidence for sonographic Alex's sign: no CBD: dilated with no obvious obstruction Right Kidney: wnl The visualized portion of the pancreas is unremarkable. Liver is unremarkable without focal lesion. G allbladder is mildly distended with gallstones in the neck. No significant wall thickening or pericho lecystic fluid. Common bile duct is dilated measuring up to 15 mm. Right kidney is unremarkable witho ut evidence of hydronephrosis, shadowing calculi, or contour performing solid mass. IMPRESSION: 1. Cholelithiasis without evidence for acute cholecystitis. 2. Common bile duct dilatation measuring up to 15 mm. Consider further evaluation with MRCP to rule out choledocholithiasis.
[2022-05-10 10:07] LABS: Lipase 12590 U/L (23-300)
--- NOTE | 2022-05-10 11:10 | P.CONS ---
History of Present Illness - Reason for Consult Consult date: 05/10/22 Gallstone pancreatitis Requesting physician: German Calle - Chief Complaint Abdominal pain - History of Present Illness This a pleasant 37-year-old female who presented to the emergency department with severe epigastric and right upper quadrant pain. Her past medical history includes asthma and GERD. Patient was supposed to see Dr. Pascual in outpatient setting this week for gallstones however pain was too severe to wait and came into the emergency department. Patient has continued epigastric pain and right upper quadrant pain associated with nausea and vomiting. She describes her pain as sharp, intense. Initially on admission she had leukocytosis, was significantly elevated amylase and lipase. Her previous ultrasound on 05/02/2022 showed mild fatty infiltrate of the liver or other nonspecific hepatocellular disease, cholelithiasis with stones measuring up to 1.2 cm no ancillary findings of acute cholecystitis no biliary ductal dilation. Admitting labs WBC 12.8 hemoglobin 13 hematocrit 13 platelet count 305 INR 0.9 sodium 140 potassium 3.6 BUN 9 creatinine 0.7 glucose 84 total bilirubin 1.4 AST 165 ALT 69 alkaline phosphatase 336 amylase 2637 lipase greater than 20,000 Review of Systems REVIEW OF SYSTEMS: CARDIOPULMONARY: No chest pain or shortness of breath. Gastrointestinal: Epigastric pain, right upper quadrant pain. Nausea and vomiting. No hematemesis, coffee-ground emesis. No rectal bleeding, or melena. GENITOURINARY: No dysuria or hematuria. MUSCULOSKELETAL: Reports normal range of motion. SKIN: No rashes. No jaundice. ENDOCRINE: No chills, fevers. No excessive weight gain or loss. No polydipsia or polyuria. PSYCHIATRIC: Unremarkable. NEUROLOGY: No change in mental status. Denies dizziness, headache. ENT: Vision unremarkable. CONSTITUTIONAL: No recent weight loss. No fever, chills, night sweats. Past Medical History Past Medical History: Asthma, GERD/Reflux Additional Past Medical History / Comment(s): LOW IRON, STATES NAUSEA AND "SQUEEZING PAIN" IN HER STOMACH. UTERINE POLYP gall stones History of Any Multi-Drug Resistant Organisms: None Reported Past Surgical History: Appendectomy, Orthopedic Surgery Additional Past Surgical History / Comment(s): ankle implant ( left side), EGD Past Anesthesia/Blood Transfusion Reactions: No Reported Reaction Past Psychological History: Anxiety, Depression Smoking Status: Never smoker Past Alcohol Use History: None Reported Past Drug Use History: None Reported - Past Family History Mother Family Medical History: No Reported History Medications and Allergies Home Medications Medication Instructions Recorded Confirmed Type Albuterol Sulfate [Ventolin HFA] 2 puff INHALATION RT-Q6H PRN 01/20/20 05/10/22 History Lansoprazole 60 mg PO DAILY 01/20/20 05/10/22 History Ammonium Lactate Lotion 1 applic TOPICAL BID PRN 05/04/22 05/10/22 History [Lac-Hydrin 12% Lotion] Atogepant [Qulipta] 60 mg PO DAILY 05/04/22 05/10/22 History Dextroamphetamine/Amphetamine 25 mg PO DAILY 05/04/22 05/10/22 History [Adderall Xr 25 mg Capsule] Fluticasone Propion/Salmeterol 1 puff INHALATION RT-BID 05/04/22 05/10/22 History [Wixela 250-50 Inhub] Metoclopramide [Reglan] 10 mg PO ACHS PRN 05/04/22 05/10/22 History Montelukast [Singulair] 10 mg PO DAILY 05/04/22 05/10/22 History Pantoprazole [Protonix] 40 mg PO BID 05/04/22 05/10/22 History Vortioxetine Hydrobromide 10 mg PO DAILY 05/04/22 05/10/22 History [Trintellix] Zaleplon [Sonata] 5 mg PO HS 05/04/22 05/10/22 History hydrOXYzine pamoate [Vistaril] 50 mg PO BID 05/04/22 05/10/22 History Allergies Allergy/AdvReac Type Severity Reaction Status Date / Time aspirin Allergy Rash/Hives Verified 05/10/22 07:27 clindamycin Allergy Anaphylaxis Verified 05/10/22 07:27 coconut Allergy Anaphylaxis Verified 05/10/22 07:27 glyburide Allergy Anaphylaxis Verified 05/10/22 07:27 macadamia nut oil Allergy Anaphylaxis Verified 05/10/22 07:27 sunflower seed Allergy Anaphylaxis Verified 05/10/22 07:27 amoxicillin AdvReac Nausea & Verified 05/10/22 07:27 Vomiting & Diarrhea shellfish derived [Shellfish] AdvReac Nausea & Verified 05/10/22 07:27 Vomiting & Diarrhea Physical Exam Vitals: Vital Signs Temp Pulse Resp BP Pulse Ox 05/10/22 07:35 97.6 F 66 16 125/81 100 05/10/22 03:49 83 16 125/94 99 05/10/22 01:23 97.9 F 98 18 120/89 100 Intake and Output 05/09/22 05/10/22 05/10/22 22:59 06:59 14:59 Other: Weight 99.79 kg General appearance: The patient is alert, oriented, appears in no acute distress. HET: Head is normocephalic and atraumatic. Conjunctiva pink. Sclera anicteric. Neck: Supple without lymphadenopathy. Trachea midline. Heart: S1 S2. Regular rate and rhythm. Lungs: Clear to auscultation. Abdomen: Soft, significant tenderness in epigastric right upper quadrant region, nondistended with bowel sounds. No guarding or rigidity. Skin: No rashes. No jaundice. Extremities: Normal skin color and turgor. No pedal edema. Neurological: No focal deficits. Alert and oriented x3. Results CBC & Chem 7: 05/10/22 08:21 05/10/22 08:21 Labs: Abnormal Lab Results - Last 24 Hours (Table) 05/10/22 05/10/22 05/10/22 Range/Units 01:41 01:41 01:41 WBC 12.8 H (3.8-10.6) k/uL Neutrophils # 10.1 H (1.3-7.7) k/uL Monocytes # 1.1 H (0-1.0) k/uL Total Bilirubin 1.4 H (0.2-1.3) mg/dL AST 165 H (14-36) U/L ALT 69 H (4-34) U/L Alkaline Phosphatase 336 H (38-126) U/L Total Protein 6.2 L (6.3-8.2) g/dL Amylase 2637 H* (30-110) U/L Lipase >41668 H (23-300) U/L Ur Leukocyte Esterase Trace H (Negative) Urine Bacteria Rare H (None) /hpf Urine Mucus Rare H (None) /hpf CT scan - abdomen: report reviewed (Cholelithiasis without evidence of acute cholecystitis. Common bile duct dilation measuring up to 1.5 cm consider further evaluation with MRCP) Assessment and Plan (1) Gallstone pancreatitis Narrative/Plan: 37-year-old female who presented to the emergency department with severe onset of abdominal pain with a known history of cholelithiasis. Patient was supposed to see general surgeon Dr. Pascual in outpatient setting this week regarding cholelithiasis. Upon evaluation in emergency department she was noted to have significantly elevated amylase and lipase consistent with gallstone pancreatitis. Repeat ultrasound shows CBD dilation need to consider CBD obstruction, however there has been improvement in her total bilirubin as well as AST and ALT. General surgery also following, tentatively scheduled to undergo cholecystectomy today, Would recommend postponing to allow for inflammation to improve. Current Visit: Yes Status: Acute Code(s): K85.10 - BILIARY ACUTE PANCREATITIS WITHOUT NECROSIS OR INFECTION SNOMED Code(s): 05994380 (2) Cholelithiasis Current Visit: Yes Status: Acute Code(s): K80.20 - CALCULUS OF GALLBLADDER W/O CHOLECYSTITIS W/O OBSTRUCTION SNOMED Code(s): 414299431 Plan: 1. Continue symptomatic supportive care 2. Continue pain management 3. Continue IV Zosyn as ordered 3. PT/INR order 4. Repeat CMP, lipase ordered 5. Keep nothing by mouth 6. Gallbladder ultrasound ordered and reviewed 7. Await recommendations from general surgery 8. No plans on ERCP at this time, would recommend waiting on cholecystectomy for inflammation and pancreatic enzymes to improve. Dr. Adriana Perez I agree with the dictator's note, documented as a scribe by Mary Nieves.
--- NOTE | 2022-05-10 11:57 | P.GSHP ---
History of Present Illness H&P Date: 05/10/22 CHIEF COMPLAINT: Abdominal pain HISTORY OF PRESENT ILLNESS: This is a 37-year-old female who presented to the hospital with complaints of right upper quadrant abdominal pain that started at 9:00 last night a couple hours after eating. Patient has a known history of gallstones and has been dealing with gallstone attacks for the last 2 months. She was initially scheduled for an outpatient laparoscopic cholecystectomy however her pain became intolerable and she had presented to the ER. Patient was found to have evidence of gallstone pancreatitis. Lipase was 20,000. She had elevated LFTs and total bilirubin. Patient has been seen by GI service and they have no plans for ERCP. Patient had been having nausea and vomiting. She did have one loose stool. She denies any fever chills or sweats. She does report that the pain is epigastric and right upper quadrant radiates into her back and shoulder. Past surgical history does include appendectomy. PAST MEDICAL HISTORY: See below PAST SURGICAL HISTORY: See below MEDICATIONS: See below ALLERGIES: See below SOCIAL HISTORY: No illicit drug use. REVIEW OF SYSTEMS: CONSTITUTIONAL: Denies fever or chills. HEENT: Denies blurred vision, vision changes, or eye pain. Denies hemoptysis CARDIOVASCULAR: Denies chest pain or pressure. RESPIRATORY: No shortness of breath. GASTROINTESTINAL: See HPI for pertinent findings HEMATOLOGIC: Denies bleeding disorders. GENITOURINARY: Denies any blood in urine or increased urinary frequency. SKIN: Denies pruitis. Denies rash. PHYSICAL EXAM: VITAL SIGNS: Reviewed GENERAL: Well-developed in no acute distress. HEENT: No sclera icterus. Extraocular movements grossly intact. Moist buccal mucosa. Head is atraumatic, normocephalic. No nasal drainage. ABDOMEN: Soft. Nondistended. Tenderness to palpation in the right upper quadrant and epigastric area NEUROLOGIC: Alert and oriented. Cranial nerves II through XII grossly intact. LABORATORY DATA: WBC is 12.8 down to 9.7 Hgb 12.7 platelets 282 Sodium is 138 potassium is 4.7 creatinine 0.64 Lactic acid 0.8 Total bilirubin 1.4 down to 1.3 AST 165 down to 111 ALT 60 9 repeat 69 alk phos 336-331 Amylase 2637 lipase 20,000 down to 12,590 Urinalysis hCG not detected IMAGING: Abdominal ultrasound from 05/02/2022 there is mild fatty infiltration of the liver or other nonspecific hepatocellular disease. The ultrasound appearance show some coarsening of the parenchyma and slight increased echogenicity. Cholelithiasis with stones measuring up to 1.2 cm. No findings of acute cholecystitis. No biliary ductal dilatation. Repeat ultrasound for today cholelithiasis with out evidence for acute cholecystitis. Common bile duct dilatation measuring up to 15 mm. Consider further evaluation with MRCP to rule out choledocholithiasis ASSESSMENT: 1. Acute on chronic cholecystitis 2. Gallstone pancreatitis 3. Cholelithiasis PLAN: -Patient scheduled for laparoscopic cholecystectomy today with Dr. tello -Keep patient nothing by mouth -Continue IV fluids -Continue antibiotics -Continue supportive care -Consult medicine service for medical management Physician Starch Cooker note has been reviewed by physician. Signing provider agrees with the documented findings, assessment, and plan of care. Past Medical History Past Medical History: Asthma, GERD/Reflux Additional Past Medical History / Comment(s): LOW IRON, STATES NAUSEA AND "SQUEEZING PAIN" IN HER STOMACH. UTERINE POLYP gall stones History of Any Multi-Drug Resistant Organisms: None Reported Past Surgical History: Appendectomy, Orthopedic Surgery Additional Past Surgical History / Comment(s): ankle implant ( left side), EGD Past Anesthesia/Blood Transfusion Reactions: No Reported Reaction Past Psychological History: Anxiety, Depression Smoking Status: Never smoker Past Alcohol Use History: None Reported Past Drug Use History: None Reported - Past Family History Mother Family Medical History: No Reported History Medications and Allergies Home Medications Medication Instructions Recorded Confirmed Type Albuterol Sulfate [Ventolin HFA] 2 puff INHALATION RT-Q6H PRN 01/20/20 05/10/22 History Lansoprazole 60 mg PO DAILY 01/20/20 05/10/22 History Ammonium Lactate Lotion 1 applic TOPICAL BID PRN 05/04/22 05/10/22 History [Lac-Hydrin 12% Lotion] Atogepant [Qulipta] 60 mg PO DAILY 05/04/22 05/10/22 History Dextroamphetamine/Amphetamine 25 mg PO DAILY 05/04/22 05/10/22 History [Adderall Xr 25 mg Capsule] Fluticasone Propion/Salmeterol 1 puff INHALATION RT-BID 05/04/22 05/10/22 History [Wixela 250-50 Inhub] Metoclopramide [Reglan] 10 mg PO ACHS PRN 05/04/22 05/10/22 History Montelukast [Singulair] 10 mg PO DAILY 05/04/22 05/10/22 History Pantoprazole [Protonix] 40 mg PO BID 05/04/22 05/10/22 History Vortioxetine Hydrobromide 10 mg PO DAILY 05/04/22 05/10/22 History [Trintellix] Zaleplon [Sonata] 5 mg PO HS 05/04/22 05/10/22 History hydrOXYzine pamoate [Vistaril] 50 mg PO BID 05/04/22 05/10/22 History Allergies Allergy/AdvReac Type Severity Reaction Status Date / Time aspirin Allergy Rash/Hives Verified 05/10/22 07:27 clindamycin Allergy Anaphylaxis Verified 05/10/22 07:27 coconut Allergy Anaphylaxis Verified 05/10/22 07:27 glyburide Allergy Anaphylaxis Verified 05/10/22 07:27 macadamia nut oil Allergy Anaphylaxis Verified 05/10/22 07:27 sunflower seed Allergy Anaphylaxis Verified 05/10/22 07:27 amoxicillin AdvReac Nausea & Verified 05/10/22 07:27 Vomiting & Diarrhea shellfish derived [Shellfish] AdvReac Nausea & Verified 05/10/22 07:27 Vomiting & Diarrhea Surgical - Exam Vital Signs Temp Pulse Resp BP Pulse Ox 97.9 F 98 18 120/89 100 05/10/22 01:23 05/10/22 01:23 05/10/22 01:23 05/10/22 01:23 05/10/22 01:23 Results - Labs 05/10/22 08:21 05/10/22 08:21 Abnormal Lab Results - Last 24 Hours (Table) 05/10/22 05/10/22 05/10/22 Range/Units 01:41 01:41 01:41 WBC 12.8 H (3.8-10.6) k/uL Neutrophils # 10.1 H (1.3-7.7) k/uL Monocytes # 1.1 H (0-1.0) k/uL Glucose (74-99) mg/dL Total Bilirubin 1.4 H (0.2-1.3) mg/dL AST 165 H (14-36) U/L ALT 69 H (4-34) U/L Alkaline Phosphatase 336 H (38-126) U/L Total Protein 6.2 L (6.3-8.2) g/dL Amylase 2637 H* (30-110) U/L Lipase >52411 H (23-300) U/L Ur Leukocyte Esterase Trace H (Negative) Urine Bacteria Rare H (None) /hpf Urine Mucus Rare H (None) /hpf 05/10/22 Range/Units 08:21 WBC (3.8-10.6) k/uL Neutrophils # (1.3-7.7) k/uL Monocytes # (0-1.0) k/uL Glucose 120 H (74-99) mg/dL Total Bilirubin (0.2-1.3) mg/dL AST 111 H (14-36) U/L ALT 69 H (4-34) U/L Alkaline Phosphatase 331 H (38-126) U/L Total Protein 6.1 L (6.3-8.2) g/dL Amylase (30-110) U/L Lipase 55981 H (23-300) U/L Ur Leukocyte Esterase (Negative) Urine Bacteria (None) /hpf Urine Mucus (None) /hpf Diabetes panel 05/10/22 05/10/22 Range/Units 01:41 08:21 Sodium 140 138 (137-145) mmol/L Potassium 3.6 4.7 (3.5-5.1) mmol/L Chloride 105 107 (98-107) mmol/L Carbon Dioxide 26 30 (22-30) mmol/L BUN 9 10 (7-17) mg/dL Creatinine 0.70 0.64 (0.52-1.04) mg/dL Glucose 84 120 H (74-99) mg/dL Calcium 8.7 8.7 (8.4-10.2) mg/dL AST 165 H 111 H (14-36) U/L ALT 69 H 69 H (4-34) U/L Alkaline Phosphatase 336 H 331 H (38-126) U/L Total Protein 6.2 L 6.1 L (6.3-8.2) g/dL Albumin 3.7 3.7 (3.5-5.0) g/dL Calcium panel 05/10/22 05/10/22 Range/Units 01:41 08:21 Calcium 8.7 8.7 (8.4-10.2) mg/dL Albumin 3.7 3.7 (3.5-5.0) g/dL Pituitary panel 05/10/22 05/10/22 Range/Units 01:41 08:21 Sodium 140 138 (137-145) mmol/L Potassium 3.6 4.7 (3.5-5.1) mmol/L Chloride 105 107 (98-107) mmol/L Carbon Dioxide 26 30 (22-30) mmol/L BUN 9 10 (7-17) mg/dL Creatinine 0.70 0.64 (0.52-1.04) mg/dL Glucose 84 120 H (74-99) mg/dL Calcium 8.7 8.7 (8.4-10.2) mg/dL Adrenal panel 05/10/22 05/10/22 Range/Units 01:41 08:21 Sodium 140 138 (137-145) mmol/L Potassium 3.6 4.7 (3.5-5.1) mmol/L Chloride 105 107 (98-107) mmol/L Carbon Dioxide 26 30 (22-30) mmol/L BUN 9 10 (7-17) mg/dL Creatinine 0.70 0.64 (0.52-1.04) mg/dL Glucose 84 120 H (74-99) mg/dL Calcium 8.7 8.7 (8.4-10.2) mg/dL Total Bilirubin 1.4 H 1.3 (0.2-1.3) mg/dL AST 165 H 111 H (14-36) U/L ALT 69 H 69 H (4-34) U/L Alkaline Phosphatase 336 H 331 H (38-126) U/L Total Protein 6.2 L 6.1 L (6.3-8.2) g/dL Albumin 3.7 3.7 (3.5-5.0) g/dL
[2022-05-10 14:30] VITALS: BMI 34.4
[2022-05-10] MEDS ORDERED: IV FLUID CONTINUATION 1,000 ML IV ONE (14:32)
[2022-05-10 15:02] LABS: Glucose,Whole Blood 62 mg/dL (70-110)
[2022-05-10] MEDS ORDERED: DEXTROSE 50% SYRINGE 50 ML IVP ONE (15:05)
[2022-05-10] MEDS ORDERED: ONDANSETRON 4 MG/2 ML VIAL IVP ONE (15:09)
[2022-05-10] MEDS ORDERED: DEXAMETHASONE SOD PHOSPHATE 4 MG/ML 1 ML VIAL IVP ONE (15:09)
[2022-05-10] MEDS ORDERED: HEPARIN SODIUM,PORCINE 5,000 UNIT/ML 1 ML VIAL SQ ONE (15:10)
[2022-05-10] MEDS ORDERED: HEPARIN SODIUM,PORCINE/PF 5,000 UNIT/0.5 ML SYRINGE SQ ONE (15:11)
[2022-05-10 15:22] LABS: Glucose,Whole Blood 113 mg/dL (70-110)
[2022-05-10] MEDS ORDERED: BUPIVACAINE (PF) 0.5% 30 ML VIAL SQ ONE ×2 (15:28→16:04)
[2022-05-10 15:36] LABS: Glucose,Whole Blood 87 mg/dL (70-110)
[2022-05-10] MEDS ORDERED: PROPOFOL 10 MG/ML 20 ML VIAL IV ONE (15:45)
[2022-05-10] MEDS ORDERED: HYDROmorphone (PF) 1 MG/ML ONE (15:45)
[2022-05-10] MEDS ORDERED: fentaNYL (PF) 50 MCG/ML 2 ML AMP ONE (15:45)
[2022-05-10] MEDS ORDERED: NEOSTIGMINE 1 MG/ML 10 ML VIAL ONE (15:45)
[2022-05-10] MEDS ORDERED: SUCCINYLCHOLINE CHLORIDE 200 MG/10 ML VIAL IV ONE (15:45)
[2022-05-10] MEDS ORDERED: GLYCOPYRROLATE 0.2 MG/ML 2 ML VIAL ONE (15:45)
[2022-05-10] MEDS ORDERED: MIDAZOLAM 2 MG/2 ML VIAL ONE (15:45)
[2022-05-10] MEDS ORDERED: ROCURONIUM 10 MG/ML (5 ML VIAL) IV ONE (15:45)
[2022-05-10] MEDS ORDERED: LIDOCAINE 2% INJ 20 MG/ML (2 ML VIAL) ONE (15:45)
[2022-05-10] MEDS ORDERED: LACTATED RINGERS 1,000 ML IV ONE (15:47)
[2022-05-10] MEDS ORDERED: HYDROmorphone 1 MG/ML 1 ML SYRINGE IVP PRN (16:25)
--- NOTE | 2022-05-10 16:25 | P.OP ---
Date of Procedure: 05/10/22 Preoperative Diagnosis: Acute cholecystitis Cholelithiasis Postoperative Diagnosis: acute cholecystitis Cholelithiasis Procedure(s) Performed: laparoscopic cholecystectomy Anesthesia: APPITO Surgeon: Octavio Pascual Estimated Blood Loss (ml): 5 Pathology: other (gallbladder) Condition: stable Disposition: PACU Operative Findings: acutely inflamed gallbladder. Cholelithiasis Description of Procedure: The patient was placed on the operating table. The patient received a general endotracheal tube anesthesia. The patients abdomen was prepped and draped in the usual sterile fashion. Through an infraumbilical stab incision, the fascia of the anterior abdominal wall was grasped with a pair of Kochers and then the Veress needle was placed in the peritoneal cavity. Position of the Veress needle was confirmed with positive drop test. The abdomen was then insufflated. After adequate insufflation, the 10 mm trocar was placed in the peritoneal cavity. Following this the laparoscope was placed in the peritoneal cavity. The patient was placed in the head-up, right side up position and then a 5 mm trocar was placed in the right lateral and right subcostal position under direct visualization. A 8 mm trocar was placed in the e pigastric position. The gallbladder was grasped in the fundus and infundibulum. Traction on the gallbladder was placed in the lateral and the cephalad positions. The triangle of Calot was visualized.. The cystic duct was bluntly dissected until the union of the cystic duct and common bile duct was seen. A critical view of safety was achieved. The cystic duct was then divided and sealed with the Harmonic scissors. A PDS Endoloop was then placed throughout the cystic duct stump. The cystic artery divided and sealed with the Harmonic scissors. The gallbladder was then removed from the liver bed using Harmonic scissors. The gallbladder was then extracted through the epigastric port site. Operative field was checked for any bleeding spots and Harmonic scissors was used to coagulate the liver bed. The abdomen was irrigated. The trocars were removed. The skin was closed using interrupted 3-0 Vicryl suture. Dermabond dressing were applied. The patient tolerated the procedure well.
[2022-05-10 16:46] LABS: Glucose,Whole Blood 98 mg/dL (70-110)
[2022-05-10] MEDS: PANTOPRAZOLE 40 MG TABLET PO SCH (17:44)
[2022-05-10] MEDS: ALBUTEROL NEBULIZED 2.5 MG/3 ML INHALATION SCH (20:24)
[2022-05-10] MEDS: SYMBICORT 80-4.5 MCG INHALER INHALATION SCH (20:24)
--- NOTE | 2022-05-11 00:16 | P.CONS ---
History of Present Illness - Reason for Consult Consult date: 05/10/22 Medical management - Chief Complaint Abdominal pain - History of Present Illness Patient is a 37-year-old female with a known history of asthma, GERD, gallstones, anxiety/depression presents to ER with complaints of abdominal pain mainly in the right upper quadrant started around 9 PM last night. Patient was diagnosed with gallstones about 2 months ago since then she has been having Right upper quadrant abdominal pain on and off and is scheduled for outpatient laparoscopic cholecystectomy. However last night patient developed severe abdominal pain and presented to ER. On admission patient was found to have elevated AST, ALT alk phos and lipase level greater than 12,000. Ultrasound Gallbladder showed cholelithiasis without evidence for acute cholecystitis. Common bile duct dilatation measuring up to 15 mm consider further evaluation with MRCP to rule out choledocholithiasis. Laboratory data showed 99.7 hemoglobin 12.7 and platelets 282 BUN 10 and creatinine 0.64. Blood sugar is 120. Review of Systems Constitutional: Patient denies any fever or chills . no Generalized weakness. Abdomen: Patient does have nausea. Complaints of abdominal pain right upper quadrant and upper abdominal. No diarrhea. Cardiovascular: Patient denies any chest pain or short of breath no palpitations. Respiratory: patient denied any cough . no sputum production. No shortness of breath Neurologic: Patient denied any numbness or tingling headache. Musculoskeletal: Patient denies any complaints of joint swelling or deformity. Skin: Negative Psychiatric: Negative Endocrine: No heat or cold intolerance. No recent weight gain. Genitourinary: No dysuria or hematuria. All other 14 point ROS negative except the above Past Medical History Past Medical History: Asthma, GERD/Reflux Additional Past Medical History / Comment(s): LOW IRON, STATES NAUSEA AND "SQUEEZING PAIN" IN HER STOMACH. UTERINE POLYP gall stones History of Any Multi-Drug Resistant Organisms: None Reported Past Surgical History: Appendectomy, Orthopedic Surgery Additional Past Surgical History / Comment(s): ankle implant ( left side), EGD Past Anesthesia/Blood Transfusion Reactions: No Reported Reaction Past Psychological History: Anxiety, Depression Smoking Status: Never smoker Past Alcohol Use History: None Reported Past Drug Use History: None Reported - Past Family History Mother Family Medical History: No Reported History Medications and Allergies Home Medications Medication Instructions Recorded Confirmed Type Albuterol Sulfate [Ventolin HFA] 2 puff INHALATION RT-Q6H PRN 01/20/20 05/10/22 History Lansoprazole 60 mg PO DAILY 01/20/20 05/10/22 History Ammonium Lactate Lotion 1 applic TOPICAL BID PRN 05/04/22 05/10/22 History [Lac-Hydrin 12% Lotion] Atogepant [Qulipta] 60 mg PO DAILY 05/04/22 05/10/22 History Dextroamphetamine/Amphetamine 25 mg PO DAILY 05/04/22 05/10/22 History [Adderall Xr 25 mg Capsule] Fluticasone Propion/Salmeterol 1 puff INHALATION RT-BID 05/04/22 05/10/22 H istory [Wixela 250-50 Inhub] Metoclopramide [Reglan] 10 mg PO ACHS PRN 05/04/22 05/10/22 History Montelukast [Singulair] 10 mg PO DAILY 05/04/22 05/10/22 History Pantoprazole [Protonix] 40 mg PO BID 05/04/22 05/10/22 History Vortioxetine Hydrobromide 10 mg PO DAILY 05/04/22 05/10/22 History [Trintellix] Zaleplon [Sonata] 5 mg PO HS 05/04/22 05/10/22 History hydrOXYzine pamoate [Vistaril] 50 mg PO BID 05/04/22 05/10/22 History Allergies Allergy/AdvReac Type Severity Reaction Status Date / Time aspirin Allergy Rash/Hives Verified 05/10/22 14:45 clindamycin Allergy Anaphylaxis Verified 05/10/22 14:45 coconut Allergy Anaphylaxis Verified 05/10/22 14:45 glyburide Allergy Anaphylaxis Verified 05/10/22 14:45 macadamia nut oil Allergy Anaphylaxis Verified 05/10/22 14:45 sunflower seed Allergy Anaphylaxis Verified 05/10/22 14:45 amoxicillin AdvReac Nausea & Verified 05/10/22 14:45 Vomiting & Diarrhea shellfish derived [Shellfish] AdvReac Nausea & Verified 05/10/22 14:45 Vomiting & Diarrhea Physical Exam Vitals: Vital Signs Temp Pulse Pulse Resp BP BP Pulse Ox 05/10/22 14:33 98.4 F 69 18 104/64 100 05/10/22 12:49 98.7 F 81 18 103/71 97 05/10/22 08:58 98.1 F 76 16 94/63 99 05/10/22 07:35 97.6 F 66 16 125/81 100 05/10/22 03:49 83 16 125/94 99 05/10/22 01:23 97.9 F 98 18 120/89 100 Intake and Output 05/10/22 05/10/22 05/10/22 06:59 14:59 22:59 Intake Total 200 700 Output Total 5 Balance 200 695 Intake: IV 200 700 Output: Estimated Blood Loss 5 Other: Voiding Method Toilet # Voids 1 Weight 99.79 kg 99.79 kg PHYSICAL EXAMINATION: Patient is lying in the bed comfortably, no acute distress, awake alert and oriented.. HEENT: Normocephalic. Neck is supple. Pupils reactive. Nostrils clear. Oral cavity is moist. Neck reveals no JVD, carotid bruits, or thyromegaly. CHEST EXAMINATION: Trachea is central. Symmetrical expansion. Lung rondon clear to auscultation and percussion. CARDIAC: Normal S1, S2 with no gallops. No murmurs ABDOMEN: Soft. Bowel sounds present. Right upper quadrant tenderness. No guarding or rigidity.. No organomegaly. No abdominal bruits. Extremities: reveal no edema. No clubbing or cyanosis Neurologically awake, alert, oriented x3 with well-coordinated movements. No focal deficits noted Skin: No rash or skin lesions. Psychiatric: Coperative. Nonsuicidal, Musculoskeletal: No joint swelling or deformity. Normal range of motion. Results CBC & Chem 7: 05/10/22 08:21 05/10/22 08:21 Labs: Abnormal Lab Results - Last 24 Hours (Table) 05/10/22 05/10/22 05/10/22 Range/Units 01:41 01:41 01:41 WBC 12.8 H (3.8-10.6) k/uL Neutrophils # 10.1 H (1.3-7.7) k/uL Monocytes # 1.1 H (0-1.0) k/uL Glucose (74-99) mg/dL POC Glucose (mg/dL) (70-110) mg/dL Total Bilirubin 1.4 H (0.2-1.3) mg/dL AST 165 H (14-36) U/L ALT 69 H (4-34) U/L Alkaline Phosphatase 336 H (38-126) U/L Total Protein 6.2 L (6.3-8.2) g/dL Amylase 2637 H* (30-110) U/L Lipase >49605 H (23-300) U/L Ur Leukocyte Esterase Trace H (Negative) Urine Bacteria Rare H (None) /hpf Urine Mucus Rare H (None) /hpf 05/10/22 05/10/22 05/10/22 Range/Units 08:21 15:00 15:20 WBC (3.8-10.6) k/uL Neutrophils # (1.3-7.7) k/uL Monocytes # (0-1.0) k/uL Glucose 120 H (74-99) mg/dL POC Glucose (mg/dL) 62 L 113 H (70-110) mg/dL Total Bilirubin (0.2-1.3) mg/dL AST 111 H (14-36) U/L ALT 69 H (4-34) U/L Alkaline Phosphatase 331 H (38-126) U/L Total Protein 6.1 L (6.3-8.2) g/dL Amylase (30-110) U/L Lipase 29869 H (23-300) U/L Ur Leukocyte Esterase (Negative) Urine Bacteria (None) /hpf Urine Mucus (None) /hpf Assessment and Plan Assessment: Acute gallstone pancreatitis Choledocholithiasis with dilated CBD to 15 mm Chronic cholecystitis History of cholelithiasis Asthma GERD DVT prophylaxis Plan: Patient will be continued on IV hydration, pain medications and empiric antibiotics in the form of Zosyn. Patient was seen by general surgery and is planning for laparoscopic cholecystectomy. Continued albuterol inhalation every 6 as needed and Symbicort 2 puffs twice daily. follow-up CBC and BMP and trend liver enzymes and lipase level.. Further recommendations based on the clinical course. Thank you for your consult. Time with Patient: Greater than 30
[2022-05-11] MEDS: SODIUM CHLORIDE 0.9% 1,000 ML IV SCH ×3 (00:26→12:54)
[2022-05-11] MEDS: HYDROmorphone 0.5 MG/0.5 ML SYRINGE IVP PRN (01:18)
[2022-05-11] MEDS: ALBUTEROL NEBULIZED 2.5 MG/3 ML INHALATION SCH ×3 (02:53→12:05)
[2022-05-11] MEDS: PIPERACILLIN-TAZOBACTAM 3.375 GM in SODIUM CHLORIDE 0.9% 100 ML IVPB SCH ×2 (03:56→12:53)
[2022-05-11] MEDS: PANTOPRAZOLE 40 MG TABLET PO SCH (06:16)
[2022-05-11 07:44] VITALS: BP 96/60; RESP 16; TEMP 98.7
[2022-05-11] MEDS: SYMBICORT 80-4.5 MCG INHALER INHALATION SCH (08:09)
[2022-05-11] MEDS ORDERED: MONTELUKAST 10 MG TAB PO SCH (09:00)
[2022-05-11 09:40] LABS: Basophils # (A) 0.01 X 10*3/uL (0.00-0.10); Basophils % (A) 0.1 %; Eosinophils # (A) 0 X 10*3/uL (0.04-0.35); Eosinophils % (A) 0 %; HCT 35.4 % (37.2-46.3); HGB 11.2 g/dL (12.0-15.0); Immature Grans, Automated 0.3 %; Lymphocytes # (A) 0.95 X 10*3/uL (0.90-5.00); Lymphocytes % (A) 11.1 %; MCH 29.9 pg (27.0-32.0); MCHC 31.6 g/dL (32.0-37.0); MCV 94.7 fL (80.0-97.0); Mean Platelet Volume 10.2 fL (9.5-12.2); Monocytes # (A) 0.47 X 10*3/uL (0.20-1.00); Monocytes % (A) 5.5 %; NRBC Per 100 WBC 0 /100 WBCS (0.0-0.0); Neutrophils # (A) 7.12 X 10*3/uL (1.80-7.70); Platelet Count 264 X 10*3/uL (140-440); RBC 3.74 X 10*6/uL (4.10-5.20); RDW 12.2 % (11.5-14.5); WBC 8.58 X 10*3/uL (4.50-10.00)
[2022-05-11] MEDS: ENOXAPARIN 40 MG/0.4 ML SYRINGE SQ SCH ×2 (10:06→10:15)
[2022-05-11 10:07] LABS: African American GFR (CKD) 135.9 (60.0-200.0); Albumin 3.5 g/dL (3.8-4.9); Albumin/Globulin Ratio 1.94 (1.60-3.17); Anion Gap 7.2 mmol/L (10.00-18.00); BUN/Creat Ratio 7.17 Ratio (12.00-20.00); Blood Urea Nitrogen 4.3 mg/dL (9.0-27.0); Calcium 8.6 mg/dL (8.7-10.3); Carbon Dioxide 23.8 mmol/L (20.0-27.5); Globulin 1.8 g/dL (1.6-3.3); Non-African American GFR(CKD) 117.3 (60.0-200.0); Potassium 4.1 mmol/L (3.5-5.5); Total Bilirubin 0.5 mg/dL (0.30-1.20); Total Protein 5.3 g/dL (6.2-8.2)
[2022-05-11] MEDS ORDERED: HYDROcodone/APAP 5-325MG 1 EACH TAB PO PRN (10:09)
--- NOTE | 2022-05-11 11:42 | P.PN ---
Subjective Progress Note Date: 05/11/22 Principal diagnosis: Gallstone pancreatitis This a pleasant 37-year-old female who presented to the emergency department with severe epigastric and right upper quadrant pain. Her past medical history includes asthma and GERD. Patient was supposed to see Dr. Pascual in outpati ent setting this week for gallstones however pain was too severe to wait and came into the emergency department. Patient has continued epigastric pain and right upper quadrant pain associated with nausea and vomiting. She describes her pain as sharp, intense. Initially on admission she had leukocytosis, was significantly elevated amylase and lipase. Her previous ultrasound on 05/02/2022 showed mild fatty infiltrate of the liver or other nonspecific hepatocellular disease, cholelithiasis with stones measuring up to 1.2 cm no ancillary findings of acute cholecystitis no biliary ductal dilation. Admitting labs WBC 12.8 hemoglobin 13 hematocrit 13 platelet count 305 INR 0.9 sodium 140 potas sium 3.6 BUN 9 creatinine 0.7 glucose 84 total bilirubin 1.4 AST 165 ALT 69 alkaline phosphatase 336 amylase 2637 lipase greater than 20,000 05/11/2022: Patient seen and examined today as a follow-up. Yesterday she underwent cholecystectomy with findings of acute cholecystitis and cholelithiasis. Today she states she is feeling better. Upper quadrant abdominal pain improved, only complaints are surgical tenderness. No nausea or vomiting. Patient tolerated clear liquids yesterday and is on a regular diet today. LFTs continued to trend down. Total bilirubin 0.5 AST 41 ALT 45 alkaline phosphatase 266 lipase 278 Objective - Vital Signs Vital signs: Vital Signs Temp 98.7 F 05/11/22 07:00 Pulse 84 05/11/22 08:21 Resp 16 05/11/22 07:00 BP 96/60 05/11/22 07:00 Pulse Ox 94 L 05/11/22 07:00 FiO2 Intake & Output 05/10/22 05/11/22 05/11/22 18:59 06:59 18:59 Intake Total 1000 Output Total 5 0 Balance 995 0 Weight 99.79 kg Intake: IV 1000 Output: Urine 0 Estimated Blood Loss 5 Other: Voiding Method Toilet Toilet # Voids 1 1 - Exam General appearance: The patient is alert, oriented, appears in no acute distress. HET: Head is normocephalic and atraumatic. Conjunctiva pink. Sclera anicteric. Neck: Supple without lymphadenopathy. Abdomen: Soft, minimal right upper quadrant tenderness, , surgical tenderness, incision sites well approximated. Nondistended. No guarding or rigidity. Extremities: Normal skin color and turgor. No pedal edema Skin: No rashes, no jaundice Neurological: No focal deficits. Alert and oriented. - Labs CBC & Chem 7: 05/11/22 06:10 05/11/22 06:10 Labs: Abnormal Lab Results - Last 24 Hours (Table) 05/10/22 05/10/22 05/11/22 Range/Units 15:00 15:20 06:10 RBC 3.74 L (4.10-5.20) X 10*6/uL Hgb 11.2 L (12.0-15.0) g/dL Hct 35.4 L (37.2-46.3) % MCHC 31.6 L (32.0-37.0) g/dL Eosinophils # 0 L (0.04-0.35) X 10*3/uL Anion Gap (10.00-18.00) mmol/L BUN (9.0-27.0) mg/dL BUN/Creatinine Ratio (12.00-20.00) Ratio Glucose (70-110) mg/dL POC Glucose (mg/dL) 62 L 113 H (70-110) mg/dL Calcium (8.7-10.3) mg/dL AST (13-35) U/L ALT (8-44) U/L Alkaline Phosphatase (41-126) U/L Total Protein (6.2-8.2) g/dL Albumin (3.8-4.9) g/dL Lipase (14-63) U/L 05/11/22 Range/Units 06:10 RBC (4.10-5.20) X 10*6/uL Hgb (12.0-15.0) g/dL Hct (37.2-46.3) % MCHC (32.0-37.0) g/dL Eosinophils # (0.04-0.35) X 10*3/uL Anion Gap 7.20 L (10.00-18.00) mmol/L BUN 4.3 L (9.0-27.0) mg/dL BUN/Creatinine Ratio 7.17 L (12.00-20.00) Ratio Glucose 142 H (70-110) mg/dL POC Glucose (mg/dL) (70-110) mg/dL Calcium 8.6 L (8.7-10.3) mg/dL AST 41 H (13-35) U/L ALT 45 H (8-44) U/L Alkaline Phosphatase 266 H (41-126) U/L Total Protein 5.3 L (6.2-8.2) g/dL Albumin 3.5 L (3.8-4.9) g/dL Lipase 278 H (14-63) U/L Microbiology - Last 24 Hours (Table) 05/10/22 03:10 Blood Culture - Preliminary Blood No Growth after 24 hours 05/10/22 03:25 Blood Culture - Preliminary Blood No Growth after 24 hours Assessment and Plan (1) Gallstone pancreatitis Narrative/Plan: 37-year-old female who presented to the emergency department with severe onset of abdominal pain with a known history of cholelithiasis. Patient was supposed to see general surgeon Dr. Pascual in outpatient setting this week regarding cholelithiasis. Upon evaluation in emergency department she was noted to have significantly elevated amylase and lipase consistent with gallstone pancreatitis. Repeat ultrasound shows CBD dilation need to consider CBD obstruction, however there has been improvement in her total bilirubin as well as AST and ALT. General surgery also following, tentatively scheduled to undergo cholecystectomy today, Would recommend postponing to allow for inflammation to improve. She is status post cholecystectomy with improved LFTs and pain. Current Visit: Yes Status: Acute Code(s): K85.10 - BILIARY ACUTE PANCREATITIS WITHOUT NECROSIS OR INFECTION SNOMED Code(s): 52361330 (2) Cholelithiasis Current Visit: Yes Status: Acute Code(s): K80.20 - CALCULUS OF GALLBLADDER W/O CHOLECYSTITIS W/O OBSTRUCTION SNOMED Code(s): 479269520 Plan: 1. Continue symptomatic supportive care 2. Diet per recommendations from general surgery 3. Encourage ambulation 4. No indication for ERCP 5. Patient is cleared from gastroenterology for discharge home once cleared by general surgery. Thank you for this consultation, we will continue to follow. Dr. Adriana Perez I agree with the dictator's note, documented as a scribe by Mary Nieves.
[2022-05-11 12:22] VITALS: PULSE 80
--- NOTE | 2022-05-11 12:28 | P.DS ---
Providers Date of admission: 05/10/22 03:04 Expected date of discharge: 05/11/22 Attending physician: Octavio Pascual Consults: 05/10/22 03:19 Consult Physician Urgent Consulting Provider: Abbie Perez Consult Reason/Comments: Gallstone pancreatitis, ERCP Do you want consulting provider notified?: Yes 05/10/22 11:58 Consult Physician Routine Consulting Provider: Eriberto Nassar Consult Reason/Comments: medical management Do you want consulting provider notified?: Yes Primary care physician: Eriberto Nassar Hospital Course: Discharge diagnosis 1. Acute cholecystitis status post laparoscopic cholecystectomy 2. Gallstone pancreatitis Hospital course This is a 37-year-old female who presented to the hospital with complaints of right upper quadrant abdominal pain that started at a couple hours after eating dinner. Patient has a known history of gallstones and has been dealing with gallstone attacks for the last 2 months. She was initially scheduled for an outpatient laparoscopic cholecystectomy however her pain became intolerable and she had presented to the ER. Patient was found to have evidence of gallstone pancreatitis. Patient is status post laparoscopic cholecystectomy. Patient reports that her pain has improved. She is tolerating diet. She's afebrile. She's been up and ambulating. She is having flatus. Her liver enzymes and lipase have all trended downwards. Patient is stable for discharge. Please refer to chart for any further details. Physician Mysql Database Administrator note has been reviewed by physician. Signing provider agrees with the documented findings, assessment, and plan of care. Patient Condition at Discharge: Stable Plan - Discharge Summary Discharge Rx Participant: No New Discharge Prescriptions: New HYDROcodone/APAP 5-325MG [[place] 5-325] 1 tab PO Q6HR PRN 3 Days #12 tab PRN Reason: Pain Continue Lansoprazole 60 mg PO DAILY Albuterol Sulfate [Ventolin HFA] 2 puff INHALATION RT-Q6H PRN PRN Reason: Shortness Of Breath Zaleplon [Sonata] 5 mg PO HS Vortioxetine Hydrobromide [Trintellix] 10 mg PO DAILY Pantoprazole [Protonix] 40 mg PO BID Dextroamphetamine/Amphetamine [Adderall Xr 25 mg Capsule] 25 mg PO DAILY Ammonium Lactate Lotion [Lac-Hydrin 12% Lotion] 1 applic TOPICAL BID PRN PRN Reason: Dry Skin Atogepant [Qulipta] 60 mg PO DAILY Montelukast [Singulair] 10 mg PO DAILY hydrOXYzine pamoate [Vistaril] 50 mg PO BID Metoclopramide [Reglan] 10 mg PO ACHS PRN PRN Reason: gi upset/nausea Fluticasone Propion/Salmeterol [Wixela 250-50 Inhub] 1 puff INHALATION RT-BID Discharge Medication List Albuterol Sulfate [Ventolin HFA] 2 puff INHALATION RT-Q6H PRN 01/20/20 [History] Lansoprazole 60 mg PO DAILY 01/20/20 [History] Ammonium Lactate Lotion [Lac-Hydrin 12% Lotion] 1 applic TOPICAL BID PRN 05/04/22 [History] Atogepant [Qulipta] 60 mg PO DAILY 05/04/22 [History] Dextroamphetamine/Amphetamine [Adderall Xr 25 mg Capsule] 25 mg PO DAILY 05/04/22 [History] Fluticasone Propion/Salmeterol [Wixela 250-50 Inhub] 1 puff INHALATION RT-BID 05/04/22 [History] Metoclopramide [Reglan] 10 mg PO ACHS PRN 05/04/22 [History] Montelukast [Singulair] 10 mg PO DAILY 05/04/22 [History] Pantoprazole [Protonix] 40 mg PO BID 05/04/22 [History] Vortioxetine Hydrobromide [Trintellix] 10 mg PO DAILY 05/04/22 [History] Zaleplon [Sonata] 5 mg PO HS 05/04/22 [History] hydrOXYzine pamoate [Vistaril] 50 mg PO BID 05/04/22 [History] HYDROcodone/APAP 5-325MG [[place] 5-325] 1 tab PO Q6HR PRN 3 Days #12 tab 05/11/22 [Rx] Follow up Appointment(s)/Referral(s): Eriberto Nassar MD [Primary Care Provider] - 1-2 days Octavio Pascual MD [STAFF PHYSICIAN] - 1 Week Activity/Diet/Wound Care/Special Instructions: No driving while taking [place] No lifting over 10 pounds Shower daily. No soaking or tub baths for 2 weeks Very light activity until you are reevaluated at your follow up appointment with your surgeon Discharge Disposition: HOME SELF-CARE
--- NOTE | 2022-05-11 14:04 | P.PN ---
Subjective Progress Note Date: 05/11/22 - Reason for Consult Consult date: 05/10/22 Medical management - Chief Complaint Abdominal pain - History of Present Illness Patient is a 37-year-old female with a known history of asthma, GERD, gallstones, anxiety/depression presents to ER with complaints of abdominal pain mainly in the right upper quadrant started around 9 PM last night. Patient was diagnosed with gallstones about 2 months ago since then she has been having Right upper quadrant abdominal pain on and off and is scheduled for outpatient l aparoscopic cholecystectomy. However last night patient developed severe abdominal pain and presented to ER. On admission patient was found to have elevated AST, ALT alk phos and lipase level greater than 12,000. Ultrasound Gallbladder showed cholelithiasis without evidence for acute cholecystitis. Common bile duct dilatation measuring up to 15 mm consider further evaluation with MRCP to rule out choledocholithiasis. Laboratory data showed 99.7 hemoglobin 12.7 and platelets 282 BUN 10 and c reatinine 0.64. Blood sugar is 120. 05/11/2022 Patient is seen and evaluated in follow-up this morning and is postop acute upper laparoscopic cholecystectomy with Dr. Pascual last night postop day #1. Surgical sites look dry and intact and patient does continue to have some mild abdominal discomfort. Patient reports her pain is controlled on current regimen. Patient reports passing gas no bowel movement as of yet and is voiding with no difficulties. Patient tolerating current diet with no reports of nausea or vomiting noted. Patient is continued on gentle IV hydration and follow-up so dium is 139 with a potassium of 4.1, current creatinine is 0.6, blood sugars have been monitored. LFTs mildly elevated recommend follow-up labs and close outpatient follow-up with primary care provider. Lipase today is 278. Patient is afebrile and WBC of 8.58. Patient reports she will likely be going home today and awaiting on surgery follow-up. Will order incentive spirometer and continue to encourage at least 10 times every hour while awake. Review of systems: Constitutional: No reports of fatigue, fever, or chills Cardiovascular: No reports of chest pain or palpitations Respiratory: No reports of shortness of breath or cough GI: No reports of nausea, vomiting, or diarrhea : No reports of dysuria or retention Neurovascular: No reports of weakness or numbness All medications have been reviewed Physical exam: Patient is lying in the bed, awake alert and oriented.. HEENT: Normocephalic. Neck is supple. Pupils reactive. Nostrils clear. Oral cavity is moist. Neck reveals no JVD, carotid bruits, or thyromegaly. CHEST EXAMINATION: Trachea is central. Symmetrical expansion. Lung rondon clear to auscultation and percussion. CARDIAC: Normal S1, S2 with no gallops. No murmurs ABDOMEN: Soft. Bowel sounds present. Right upper quadrant tenderness. No guarding or rigidity.. No organomegaly. No abdominal bruits. Extremities: reveal no edema. No clubbing or cyanosis Neurologically awake, alert, oriented x3 with well-coordinated movements. No focal deficits noted Skin: No rash or skin lesions. Psychiatric: Coperative. Nonsuicidal, Musculoskeletal: No joint swelling or deformity. Normal range of motion. Assessment: Acute gallstone pancreatitis Choledocholithiasis with dilated CBD to 15 mm Chronic cholecystitis status post laparoscopic cholecystectomy, postop day 1 History of cholelithiasis Asthma GERD DVT prophylaxis Plan: Patient will be continued on IV hydration, follow-up labs reviewed and trending down recommend outpatient follow-up labs to monitor LFTs. Incentive spirometer ordered and encourage the patient continue using at least 10 times every hour while awake. Patient is post-op laparoscopic cholecystectomy. Tolerating current diet recommend to advance slowly as tolerated Continued albuterol inhalation every 6 as needed and Symbicort 2 puffs twice daily. Patient reports she is being discharged today and recommend outpatient follow-up with labs and a prescription was provided to monitor LFTs. Encourage the patient to follow-up with primary care provider as well Thank you kindly for this consultation The impression and plan of care has been dictated by Mariluz Amin, Nurse Practitioner as directed. Dr. Atul MD I have performed a history and examination and MDM of this patient, discussed the same with the dictator, and agree with the dictator's assessment and plan as written ,documented as a scribe. Based on total visit time, I have performed more than 50% of the visit. Objective - Vital Signs Vital signs: Vital Signs Temp 98.7 F 05/11/22 07:00 Pulse 84 05/11/22 08:21 Resp 16 05/11/22 07:00 BP 96/60 05/11/22 07:00 Pulse Ox 94 L 05/11/22 07:00 FiO2 Intake & Output 05/10/22 05/11/22 05/11/22 18:59 06:59 18:59 Intake Total 1000 Output Total 5 0 Balance 995 0 Weight 99.79 kg Intake: IV 1000 Output: Urine 0 Estimated Blood Loss 5 Other: Voiding Method Toilet Toilet # Voids 1 1 - Labs CBC & Chem 7: 05/11/22 06:10 05/11/22 06:10 Labs: Abnormal Lab Results - Last 24 Hours (Table) 05/10/22 05/10/22 05/11/22 Range/Units 15:00 15:20 06:10 RBC 3.74 L (4.10-5.20) X 10*6/uL Hgb 11.2 L (12.0-15.0) g/dL Hct 35.4 L (37.2-46.3) % MCHC 31.6 L (32.0-37.0) g/dL Eosinophils # 0 L (0.04-0.35) X 10*3/uL Anion Gap (10.00-18.00) mmol/L BUN (9.0-27.0) mg/dL BUN/Creatinine Ratio (12.00-20.00) Ratio Glucose (70-110) mg/dL POC Glucose (mg/dL) 62 L 113 H (70-110) mg/dL Calcium (8.7-10.3) mg/dL AST (13-35) U/L ALT (8-44) U/L Alkaline Phosphatase (41-126) U/L Total Protein (6.2-8.2) g/dL Albumin (3.8-4.9) g/dL Lipase (14-63) U/L 05/11/22 Range/Units 06:10 RBC (4.10-5.20) X 10*6/uL Hgb (12.0-15.0) g/dL Hct (37.2-46.3) % MCHC (32.0-37.0) g/dL Eosinophils # (0.04-0.35) X 10*3/uL Anion Gap 7.20 L (10.00-18.00) mmol/L BUN 4.3 L (9.0-27.0) mg/dL BUN/Creatinine Ratio 7.17 L (12.00-20.00) Ratio Glucose 142 H (70-110) mg/dL POC Glucose (mg/dL) (70-110) mg/dL Calcium 8.6 L (8.7-10.3) mg/dL AST 41 H (13-35) U/L ALT 45 H (8-44) U/L Alkaline Phosphatase 266 H (41-126) U/L Total Protein 5.3 L (6.2-8.2) g/dL Albumin 3.5 L (3.8-4.9) g/dL Lipase 278 H (14-63) U/L Microbiology - Last 24 Hours (Table) 05/10/22 03:10 Blood Culture - Preliminary Blood No Growth after 24 hours 05/10/22 03:25 Blood Culture - Preliminary Blood No Growth after 24 hours
== END 2022-05-11 13:34 | disposition home or self-care (01) ==
LOC: EC 01:21 → 6NMEDSUR 03:04 → 4SSUR 04:45
PROVIDERS: ADMIT Surgery; ATTEND Surgery
DX: K80.12 Calculus of gallbladder with acute and chronic cholecystitis without obstruction (principal); K85.10 Biliary acute pancreatitis without necrosis or infection; J45.909 Unspecified asthma, uncomplicated; K21.9 Gastro-esophageal reflux disease without esophagitis; F41.9 Anxiety disorder, unspecified; F32.A Depression, unspecified; Z79.899 Other long term (current) drug therapy; Z88.6 Allergy status to analgesic agent; Z88.1 Allergy status to other antibiotic agents; Z32.02 Encounter for pregnancy test, result negative
CPT/HCPCS: 96376 ×3; 96361 ×2; 96366 ×2; 96365; 96375; 99285; 36415; 94640 ×4; 81025 ×2; 88304; 80053 ×2; 82150; 83605; 83690 ×2; 85025 ×2; 85027; 85610; 81001; 87040; 76705; 47562; G0378 ×3; J2543 ×2; J2250; J0330; J1644; J1100; J2710; J2765; J2405; J3010; J1170 ×3; J2704; J2001

== ENCOUNTER 2023-11-04 16:26 | Emergency (ER) | payer BC ==
[2023-11-04 16:32] VITALS: TEMP 97.6
--- NOTE | 2023-11-04 16:52 | ED ---
Abdominal Pain HPI - General Chief Complaint: Abdominal Pain Stated Complaint: Abd pain Time Seen by Provider: 11/04/23 16:33 Source: patient, RN notes reviewed Mode of arrival: ambulatory Limitations: no limitations - History of Present Illness Initial Comments: This is a 38-year-old female who presents to the emergency department for abdominal pain. States that it started 2 days ago. Pain is in the right upper quadrant with radiation into the back as well as down into the right lower quadrant. Pain seems to be coming in waves. She has associated nausea and vomiting. Denies any diarrhea or constipation. She felt warm yesterday but did not measure any fevers. The pain feels very similar to when she had her gallbladder out last year. Denies any correlation with foods. She had similar bouts of pain a couple of weeks ago that resolved on their own. Denies any urinary symptoms. MD Complaint: abdominal pain - Related Data Home Medications Medication Instructions Recorded Confirmed Lansoprazole 60 mg PO BID 01/20/20 11/04/23 Atogepant [Qulipta] 60 mg PO DAILY 05/04/22 11/04/23 Fluticasone Propion/Salmeterol 1 puff INHALATION RT-BID 05/04/22 11/04/23 [Wixela 250-50 Inhub] Metoclopramide [Reglan] 10 mg PO ACHS PRN 05/04/22 11/04/23 Montelukast [Singulair] 10 mg PO HS 05/04/22 11/04/23 Zaleplon [Sonata] 5 mg PO HS 05/04/22 11/04/23 hydrOXYzine pamoate [Vistaril] 50 mg PO BID 05/04/22 11/04/23 Albuterol Nebulized [Ventolin 2.5 mg INHALATION RT-QID PRN 11/04/23 11/04/23 Nebulized] Dextroamphetamine/Amphetamine 30 mg PO DAILY 11/04/23 11/04/23 [Adderall Xr 30 mg Capsule] EPINEPHrine (Auto Inject) [Epipen] 0.3 mg IM ONCE PRN 11/04/23 11/04/23 Ergocalciferol [Vitamin D2 (1250 1,250 mcg PO TH 11/04/23 11/04/23 Mcg = 84851 Iu)] Famotidine 20 mg PO BID 11/04/23 11/04/23 Ondansetron Odt [Zofran Odt] 4 - 8 mg PO Q8H PRN 11/04/23 11/04/23 Tirzepatide [Zepbound] 5 mg SQ TH 11/04/23 11/04/23 Vortioxetine Hydrobromide 20 mg PO DAILY 11/04/23 11/04/23 [Trintellix] l-Norgest/E.estradiol-E.estrad 1 tab PO HS 11/04/23 11/04/23 [Seasonique 0.15-0.03-0.01 (GEQ)] Previous Rx's Medication Instructions Recorded Dicyclomine [Bentyl] 20 mg PO QID PRN #30 tablet 11/04/23 Meloxicam [Mobic] 15 mg PO DAILY PRN #20 tab 11/04/23 Ondansetron Odt [Zofran Odt] 4 mg PO Q8HR PRN #20 tab 11/04/23 methocarbamoL [Robaxin-750] 1,500 mg PO TID PRN #30 tab 11/04/23 Allergies Allergy/AdvReac Type Severity Reaction Status Date / Time aspirin Allergy Rash/Hives Verified 11/04/23 19:05 clindamycin Allergy Anaphylaxis Verified 11/04/23 19:05 coconut Allergy Anaphylaxis Verified 11/04/23 19:05 glyburide Allergy Anaphylaxis Verified 11/04/23 19:05 macadamia nut oil Allergy Anaphylaxis Verified 11/04/23 19:05 sunflower seed Allergy Anaphylaxis Verified 11/04/23 19:05 amoxicillin AdvReac Nausea & Verified 11/04/23 19:05 Vomiting & Diarrhea shellfish derived [Shellfish] AdvReac Nausea & Verified 11/04/23 19:05 Vomiting & Diarrhea Review of Systems ROS Statement: Those systems with pertinent positive or pertinent negative responses have been documented in the HPI. ROS Other: All systems not noted in ROS Statement are negative. Past Medical History Past Medical History: Asthma, GERD/Reflux Additional Past Medical History / Comment(s): LOW IRON, STATES NAUSEA AND "SQUEEZING PAIN" IN HER STOMACH. UTERINE POLYP gall stones History of Any Multi-Drug Resistant Organisms: None Reported Past Surgical History: Appendectomy, Cholecystectomy, Orthopedic Surgery Additional Past Surgical History / Comment(s): ankle implant ( left side), EGD Past Anesthesia/Blood Transfusion Reactions: No Reported Reaction Past Psychological History: Anxiety, Depression Smoking Status: Never smoker Past Alcohol Use History: None Reported Past Drug Use History: None Reported - Past Family History Mother Family Medical History: No Reported History General Exam Limitations: no limitations General appearance: alert, in no apparent distress Head exam: Present: atraumatic, normocephalic, normal inspection Respiratory exam: Present: normal lung sounds bilaterally. Absent: respiratory distress, wheezes, rales, rhonchi, stridor Cardiovascular Exam: Present: regular rate, normal rhythm, normal heart sounds. Absent: systolic murmur, diastolic murmur, rubs, gallop, clicks GI/Abdominal exam: Present: soft, tenderness (RUQ, epigastric, and RLQ), normal bowel sounds. Absent: distended Back exam: Present: CVA tenderness (R). Absent: CVA tenderness (L) Neurological exam: Present: alert, oriented X3, CN II-XII intact Psychiatric exam: Present: normal affect, normal mood Skin exam: Present: warm, dry, intact, normal color. Absent: rash Course Vital Signs 11/04/23 11/04/23 11/04/23 16:29 18:30 20:03 Temperature 97.6 F Pulse Rate 107 H 83 75 Respiratory 18 18 16 Rate Blood Pressure 102/75 107/62 105/74 O2 Sat by Pulse 98 100 100 Oximetry Medical Decision Making - Medical Decision Making This is a 38 year old female who presents to the emergency department for abdominal pain. Was pt. sent in by a medical professional or institution? @ -No Did you speak to anyone other than the patient for history? @ -No Did you review nursing and triage notes? @ -Yes, and I agree, it is accurate with regards to the patient's symptoms. Were old charts reviewed? @ -No Differential Diagnosis? @ -Differential Abdominal Pain Women: Appendicitis, Cholecystitis, diverticulosis, ischemic bowel, pancreatitis, hepatitis, UTI, gastroenteritis, AAA, incarcerated hernia, bowel obstruction, constipation, inflammatory bowel, hepatitis, peptic ulcer disease, splenic infarction, perforated viscus, vulvitis, ovarian torsion, PID, kidney stone, placenta abruption, this is not meant to be an all-inclusive list EKG interpreted by me (3pts min.)? @ -Not obtained X-rays interpreted by me (1pt min.)? @ -Not obtained CT interpreted by me (1pt min.)? @ -CT scan of the abdomen and pelvis obtained. My interpretation identifies no evidence of bowel wall thickening or free air. U/S interpreted by me (1pt. min.)? @ -Not obtained What testing was considered but not performed? (CT, X-rays, U/S, labs)? Why? @ -None What meds were considered but not given? Why? @ -None Did you discuss the management of the patient with other professionals? @ -No Did you reconcile home meds? @ -No Was smoking cessation discussed for >3mins.? @ -No Was critical care preformed (if so, how long)? @ -No Were there social determinants of health that impacted care today? How? (Homelessness, low income, unemployed, alcoholism, drug addiction, transportation, low edu. Level, literacy, decrease access to med. care, alf, rehab)? @ -No Was there de-escalation of care discussed even if they declined? (Discuss DNR or withdrawal of care, Hospice)? @ -No What co-morbidities impacted this encounter? (DM, HTN, Smoking, COPD, CAD, Cancer, CVA, Hep., AIDS, mental health diagnosis, sleep apnea, morbid obesity)? @ -GERD Was patient admitted / discharged? @ -Discharged. Lab work demonstrates mild leukocytosis and was otherwise unremarkable. Urinalysis negative for signs of infection. CT scan of the abdomen and pelvis reveals no acute process. Discussed with the patient that the cause of her symptoms is not entirely clear. 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 She was initially treated with Toradol and morphine on arrival. This was moderately effective in managing her symptoms. We then did a trial of Bentyl and Norflex for any musculoskeletal component or signs of IBS. She did have additional improvement with both of these medications. Prescription for Mobic, Bentyl, and zofran provided for further symptomatic management. She was also given information for follow-up with [facility] tro[facility]. Undiagnosed new problem with uncertain prognosis? @ -None Drug Therapy requiring intensive monitoring for toxicity (Heparin, Nitro, Insulin, Cardizem)? @ -None Were any procedures done? @ -None Diagnosis/symptom? @ -Abdominal pain Acute, or Chronic, or Acute on Chronic? @ -Acute Uncomplicated (without systemic symptoms) or Complicated (systemic symptoms)? @ -Uncomplicated Side effects of treatment? @ -None Exacerbation, Progression, or Severe Exacerbation] @ -Not applicable Poses a threat to life or bodily function? @ -No Return precautions reviewed in depth, the patient is instructed to return to the emergency department with any new, worsening, or concerning symptoms. Patient verbalized understanding. This case was discussed in detail with the attending ED physician, Dr. Mcmahan. Presentation, findings, and treatment plan discussed in detail as well. - Lab Data Result diagrams: 11/04/23 16:53 11/04/23 16:53 Lab Results 11/04/23 11/04/23 11/04/23 Range/Units 16:53 16:53 16:53 WBC 11.0 H (3.8-10.6) k/uL RBC 4.61 (3.80-5.40) m/uL Hgb 14.1 (11.4-16.0) gm/dL Hct 42.4 (34.0-46.0) % MCV 91.9 (80.0-100.0) fL MCH 30.6 (25.0-35.0) pg MCHC 33.3 (31.0-37.0) g/dL RDW 11.9 (11.5-15.5) % Plt Count 381 (150-450) k/uL MPV 7.2 Neutrophils % 73 % Lymphocytes % 21 % Monocytes % 4 % Eosinophils % 1 % Basophils % 0 % Neutrophils # 8.0 H (1.3-7.7) k/uL Lymphocytes # 2.4 (1.0-4.8) k/uL Monocytes # 0.4 (0-1.0) k/uL Eosinophils # 0.1 (0-0.7) k/uL Basophils # 0.0 (0-0.2) k/uL Sodium 139 (137-145) mmol/L Potassium 4.3 (3.5-5.1) mmol/L Chloride 107 (98-107) mmol/L Carbon Dioxide 24 (22-30) mmol/L Anion Gap 8 mmol/L BUN 11 (7-17) mg/dL Creatinine 0.69 (0.52-1.04) mg/dL Est GFR (CKD-EPI)AfAm >90 (>60 ml/min/1.73 sqM) Est GFR (CKD-EPI)NonAf >90 (>60 ml/min/1.73 sqM) Glucose 87 (74-99) mg/dL Plasma Lactic Acid Khang 0.6 L (0.7-2.0) mmol/L Calcium 9.2 (8.4-10.2) mg/dL Total Bilirubin 0.8 (0.2-1.3) mg/dL AST 27 (14-36) U/L ALT 29 (4-34) U/L Alkaline Phosphatase 74 (38-126) U/L Total Protein 6.8 (6.3-8.2) g/dL Albumin 4.2 (3.5-5.0) g/dL Amylase 56 (30-110) U/L Lipase 49 (23-300) U/L HCG, Qual Not Detected Urine Color Urine Appearance (Clear) Urine pH (5.0-8.0) Ur Specific [place] (1.001-1.035) Urine Protein (Negative) Urine Glucose (UA) (Negative) Urine Ketones (Negative) Urine Blood (Negative) Urine Nitrite (Negative) Urine Bilirubin (Negative) Urine Urobilinogen (<2.0) mg/dL Ur Leukocyte Esterase (Negative) Urine RBC (0-5) /hpf Urine WBC (0-5) /hpf Ur Squamous Epith Cells (0-4) /hpf Urine HCG, Qual (Not Detectd) 11/04/23 11/04/23 Range/Units 18:25 18:25 WBC (3.8-10.6) k/uL RBC (3.80-5.40) m/uL Hgb (11.4-16.0) gm/dL Hct (34.0-46.0) % MCV (80.0-100.0) fL MCH (25.0-35.0) pg MCHC (31.0-37.0) g/dL RDW (11.5-15.5) % Plt Count (150-450) k/uL MPV Neutrophils % % Lymphocytes % % Monocytes % % Eosinophils % % Basophils % % Neutrophils # (1.3-7.7) k/uL Lymphocytes # (1.0-4.8) k/uL Monocytes # (0-1.0) k/uL Eosinophils # (0-0.7) k/uL Basophils # (0-0.2) k/uL Sodium (137-145) mmol/L Potassium (3.5-5.1) mmol/L Chloride (98-107) mmol/L Carbon Dioxide (22-30) mmol/L Anion Gap mmol/L BUN (7-17) mg/dL Creatinine (0.52-1.04) mg/dL Est GFR (CKD-EPI)AfAm (>60 ml/min/1.73 sqM) Est GFR (CKD-EPI)NonAf (>60 ml/min/1.73 sqM) Glucose (74-99) mg/dL Plasma Lactic Acid Khang (0.7-2.0) mmol/L Calcium (8.4-10.2) mg/dL Total Bilirubin (0.2-1.3) mg/dL AST (14-36) U/L ALT (4-34) U/L Alkaline Phosphatase (38-126) U/L Total Protein (6.3-8.2) g/dL Albumin (3.5-5.0) g/dL Amylase (30-110) U/L Lipase (23-300) U/L HCG, Qual Urine Color Colorless Urine Appearance Clear (Clear) Urine pH 6.5 (5.0-8.0) Ur Specific [place] 1.032 (1.001-1.035) Urine Protein Negative (Negative) Urine Glucose (UA) Negative (Negative) Urine Ketones 1+ H (Negative) Urine Blood Moderate H (Negative) Urine Nitrite Negative (Negative) Urine Bilirubin Negative (Negative) Urine Urobilinogen <2.0 (<2.0) mg/dL Ur Leukocyte Esterase Negative (Negative) Urine RBC 1 (0-5) /hpf Urine WBC <1 (0-5) /hpf Ur Squamous Epith Cells <1 (0-4) /hpf Urine HCG, Qual Not Detected (Not Detectd) - Radiology Data Radiology results: report reviewed, image reviewed Disposition Clinical Impression: Abdominal pain Disposition: HOME SELF-CARE Instructions (If sedation given, give patient instructions): Abdominal Pain (ED) Additional Instructions: Return to the emergency department with any new, worsening, or concerning symptoms. Try taking the Mobic once daily with Tylenol to see if this helps w ith your discomfort. You can try taking the Bentyl up to 4 times a day to help with abdominal discomfort. The Robaxin can also be taken as 1 to 2 tablets up to 3-4 times daily. This will act as a muscle relaxant. Be aware that this may make you drowsy. You can also take the Zofran up to every 8 hours as needed for nausea and vomiting. Contact the e commerce specialist listed below for follow-up appointment. 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 Follow up with your primary care provider in 1-2 days. Prescriptions: Dicyclomine [Bentyl] 20 mg PO QID PRN #30 tablet PRN Reason: Gi Upset Meloxicam [Mobic] 15 mg PO DAILY PRN #20 tab PRN Reason: Pain methocarbamoL [Robaxin-750] 1,500 mg PO TID PRN #30 tab PRN Reason: Pain Ondansetron Odt [Zofran Odt] 4 mg PO Q8HR PRN #20 tab PRN Reason: Nausea And Vomiting Is patient prescribed a controlled substance at d/c from ED?: No Referrals: Eriberto Nassar MD [Primary Care Provider] - 1-2 days Abbie Perez MD [STAFF PHYSICIAN] - 1-2 days Time of Disposition: 19:49
[2023-11-04 17:02] LABS: Basophils % (A) 0 %; Eosinophils # (A) 0.1 k/uL (0-0.7); Eosinophils % (A) 1 %; HCT 42.4 % (34.0-46.0); HGB 14.1 gm/dL (11.4-16.0); Lymphocytes # (A) 2.4 k/uL (1.0-4.8); Lymphocytes % (A) 21 %; MCH 30.6 pg (25.0-35.0); MCHC 33.3 g/dL (31.0-37.0); MCV 91.9 fL (80.0-100.0); Mean Platelet Volume 7.2; Monocytes # (A) 0.4 k/uL (0-1.0); Monocytes % (A) 4 %; Neutrophils % (A) 73 %; Platelet Count 381 k/uL (150-450); RBC 4.61 m/uL (3.80-5.40); RDW 11.9 % (11.5-15.5)
[2023-11-04] MEDS: SODIUM CHLORIDE 0.9% 1,000 ML IV STA (17:07)
[2023-11-04 17:12] LABS: ALT 29 U/L (4-34); AST 27 U/L (14-36); African American GFR (CKD) >90 (>60 ml/min/1.73 sqM); Albumin 4.2 g/dL (3.5-5.0); Alkaline Phosphatase 74 U/L (38-126); Amylase 56 U/L (30-110); Anion Gap 8 mmol/L; Blood Urea Nitrogen 11 mg/dL (7-17); Calcium 9.2 mg/dL (8.4-10.2); Carbon Dioxide 24 mmol/L (22-30); Chloride 107 mmol/L (98-107); Glucose 87 mg/dL (74-99); Lipase 49 U/L (23-300); Non-African American GFR(CKD) >90 (>60 ml/min/1.73 sqM); Potassium 4.3 mmol/L (3.5-5.1); Sodium 139 mmol/L (137-145); Total Bilirubin 0.8 mg/dL (0.2-1.3); Total Protein 6.8 g/dL (6.3-8.2)
[2023-11-04] MEDS: ONDANSETRON 4 MG/2 ML VIAL IVP STA (17:13)
[2023-11-04] MEDS: MORPHINE SULFATE 2 MG/ML SYRINGE IVP STA (17:19)
[2023-11-04 17:33] LABS: HCG,Qualitative Serum Not Detected
[2023-11-04] MEDS: KETOROLAC 15 MG/ML 1 ML VIAL IVP STA (17:33)
--- NOTE | 2023-11-04 18:23 | CT ---
EXAMINATION TYPE: CT abdomen pelvis w con CT DLP: 1214.9 mGycm, Automated exposure control for dose reduction was used. DATE OF EXAM: 11/04/2023 6:08 PM COMPARISON: None. CLINICAL INDICATION:Female, 38 years old with history of Right sided abdominal pain; Right sided abdo lucio pain TECHNIQUE: Axial CT abdomen pelvis w con;Sagittal and coronal reformats were created on a separate w orkstation. Contrast used:100ml mL of Isovue 300 with IV Contrast, (none if empty) Oral contrast used: without Oral Contrast (none if empty) FINDINGS: LOWER CHEST: Unremarkable ABDOMEN LIVER: Unremarkable GALLBLADDER AND BILE DUCTS: Unremarkable. PANCREAS: Unremarkable. SPLEEN: Unremarkable. ADRENAL GLANDS: Unremarkable. KIDNEYS AND URETERS: No evidence of hydronephrosis or renal calculus. The ureters are unremarkable. PELVIS BLADDER: Unremarkable REPRODUCTIVE: Unremarkable. ABDOMEN & PELVIS STOMACH AND BOWEL: No evidence of bowel obstruction. The appendix is not visualized may be surgically absent. PERITONEUM/RETROPERITONEUM: No evidence of pneumoperitoneum or free fluid. VASCULATURE: No evidence of aortic aneurysm. MUSCULOSKELETAL: No acute osseous abnormalities LYMPH NODES: No gross evidence for lymphadenopathy. SOFT TISSUE/ABDOMINAL WALL: Fat-containing umbilical hernia. IMPRESSION: No evidence for obstructive uropathy or renal calculus. The appendix is not visualized and may be alba gically absent.
[2023-11-04 18:42] LABS: Appearance,Urine Clear (Clear); Bilirubin,Urine Negative (Negative); Blood,Urine Moderate (Negative); Color,Urine Colorless; Glucose,Urine (UA) Negative (Negative); Ketones,Urine 1+ (Negative); Leukocyte Esterase,Urine Negative (Negative); Nitrite,Urine Negative (Negative); PH, Urine 6.5 (5.0-8.0); Protein,Urine Negative (Negative); RBC,Urine 1 /hpf (0-5); Specific Gravity,Urine 1.032 (1.001-1.035); Squamous Epithelial Cell,Urine <1 /hpf (0-4); Urobilinogen,Urine <2.0 mg/dL (<2.0); WBC,Urine <1 /hpf (0-5)
[2023-11-04] MEDS: ORPHENADRINE 30 MG/ML 2 ML VIAL IVP STA (19:06)
[2023-11-04] MEDS: DICYCLOMINE 10 MG/ML 2 ML AMP IM STA (19:07)
[2023-11-04] MEDS: ACET/COD 300 MG/30 MG STARTER PACK 6 TAB BTL PO STA (20:00)
[2023-11-04] MEDS: ONDANSETRON 4 MG ODT STARTER PACK 2 TAB BTL PO STA (20:00)
[2023-11-04 20:04] VITALS: BP 105/74; PULSE 75; RESP 16
== END 2023-11-04 20:04 | disposition home or self-care (01) ==
LOC: EC 16:26
DX: R10.11 Right upper quadrant pain (principal); Z88.6 Allergy status to analgesic agent; Z91.018 Allergy to other foods; Z91.013 Allergy to seafood; Z88.8 Allergy status to other drugs, medicaments and biological substances; Z88.0 Allergy status to penicillin
CPT/HCPCS: 36415; 80053; 82150; 83605; 83690; 85025; 81001; 81025; 84703; 74177; 99284; 96374; 96375 ×3; 96361; 96372; J0500; J2360; J2405; J2270; J1885; S0119; Q9967

== ENCOUNTER → 2024-01-25 | Outpatient (CLI) | payer BC ==
[2024-01-25 10:37] LABS: Basophils # (A) 0.02 X 10*3/uL (0.00-0.10); Basophils % (A) 0.2 %; Eosinophils # (A) 0.04 X 10*3/uL (0.04-0.35); Eosinophils % (A) 0.5 %; HCT 39.2 % (37.2-46.3); HGB 12.9 g/dL (12.0-15.0); Lymphocytes # (A) 1.98 X 10*3/uL (0.90-5.00); Lymphocytes % (A) 24.1 %; MCH 30.1 pg (27.0-32.0); MCHC 32.9 g/dL (32.0-37.0); MCV 91.6 FL (80.0-97.0); Mean Platelet Volume 10.3 FL (9.5-12.2); Monocytes # (A) 0.52 X 10*3/uL (0.20-1.00); Monocytes % (A) 6.3 %; NRBC Per 100 WBC 0 X 10*3/uL (0.00-0.01); Neutrophils # (A) 5.62 X 10*3/uL (1.80-7.70); Neutrophils % (A) 68.7 %; Platelet Count 343 X 10*3/uL (140-440); RBC 4.28 X 10*6/uL (4.10-5.20); RDW 13.2 % (11.5-14.5)
[2024-01-25 10:48] LABS: Erythrocyte Sedimentation Rate 9 mm/Hr (0-20)
[2024-01-25 10:56] LABS: ALT 40 U/L (8-44); AST 30 U/L (13-35); Alkaline Phosphatase 77 U/L (41-126); Calcium 8.8 mg/dL (8.7-10.3); Carbon Dioxide 24.3 mmol/L (21.6-31.8); Chloride 108 mmol/L (96-109); Glucose 93 mg/dL (70-110); Potassium 4.5 mmol/L (3.5-5.5); Sodium 142 mmol/L (135-145); Total Bilirubin 0.6 mg/dL (0.3-1.2)
== END | disposition home or self-care (01) ==
LOC: LABWHC1 07:12
PROVIDERS: ATTEND Internal Medicine
DX: L50.9 Urticaria, unspecified (principal)
CPT/HCPCS: 36415; 80053; 84443; 85025; 85652; 86038; 86140; 86160

== ENCOUNTER 2024-08-06 03:18 | Emergency (ER) | payer BC ==
--- NOTE | 2024-08-06 04:02 | ED ---
General Adult HPI - General Chief complaint: Abdominal Pain Stated complaint: abd pain,Nausea Time Seen by Provider: 08/06/24 03:35 Source: patient Mode of arrival: ambulatory Limitations: no limitations - History of Present Illness Initial comments: Dictation was produced using [employer] dictation software. please excuse any grammatical, word or spelling errors. Chief Complaint: 31-year-old female with chief complaint of dumping syndrome History of Present Illness: Patient is 31-year-old female she has no history of bariatric surgery. She had a cholecystectomy performed last year. In October of last year she was seen for similar complaint and told that she has dumping syndrome. Patient states for the last several days she has been having symptoms of epigastric cramping, nausea, poor appetite. Denies any fever chills or night sweats. Denies any diarrhea. The ROS documented in this emergency department record has been reviewed and confirmed by me. Those systems with pertinent positive or negative responses have been documented in the HPI. All other systems are other negative and/or noncontributory. - Related Data Home Medications Medication Instructions Recorded Confirmed Lansoprazole 60 mg PO BID 01/20/20 11/04/23 Atogepant [Qulipta] 60 mg PO DAILY 05/04/22 11/04/23 Fluticasone Propion/Salmeterol 1 puff INHALATION RT-BID 05/04/22 11/04/23 [Wixela 250-50 Inhub] Metoclopramide [Reglan] 10 mg PO ACHS PRN 05/04/22 11/04/23 Montelukast [Singulair] 10 mg PO HS 05/04/22 11/04/23 Zaleplon [Sonata] 5 mg PO HS 05/04/22 11/04/23 hydrOXYzine pamoate [Vistaril] 50 mg PO BID 05/04/22 11/04/23 Albuterol Nebulized [Ventolin 2.5 mg INHALATION RT-QID PRN 11/04/23 11/04/23 Nebulized] Dextroamphetamine/Amphetamine 30 mg PO DAILY 11/04/23 11/04/23 [Adderall Xr 30 mg Capsule] EPINEPHrine (Auto Inject) [Epipen] 0.3 mg IM ONCE PRN 11/04/23 11/04/23 Ergocalciferol [Vitamin D2 (1250 1,250 mcg PO TH 11/04/23 11/04/23 Mcg = 63655 Iu)] Famotidine 20 mg PO BID 11/04/23 11/04/23 Ondansetron Odt [Zofran Odt] 4 - 8 mg PO Q8H PRN 11/04/23 11/04/23 Tirzepatide [Zepbound] 5 mg SQ TH 11/04/23 11/04/23 Vortioxetine Hydrobromide 20 mg PO DAILY 11/04/23 11/04/23 [Trintellix] l-Norgest/E.estradiol-E.estrad 1 tab PO HS 11/04/23 11/04/23 [Seasonique 0.15-0.03-0.01 (GEQ)] Previous Rx's Medication Instructions Recorded Dicyclomine [Bentyl] 20 mg PO QID PRN #30 tablet 11/04/23 Meloxicam [Mobic] 15 mg PO DAILY PRN #20 tab 11/04/23 Ondansetron Odt [Zofran Odt] 4 mg PO Q8HR PRN #20 tab 11/04/23 methocarbamoL [Robaxin-750] 1,500 mg PO TID PRN #30 tab 11/04/23 Allergies Allergy/AdvReac Type Severity Reaction Status Date / Time aspirin Allergy Rash/Hives Verified 08/06/24 03:22 clindamycin Allergy Anaphylaxis Verified 08/06/24 03:22 coconut Allergy Anaphylaxis Verified 08/06/24 03:22 glyburide Allergy Anaphylaxis Verified 08/06/24 03:22 macadamia nut oil Allergy Anaphylaxis Verified 08/06/24 03:22 sunflower seed Allergy Anaphylaxis Verified 08/06/24 03:22 amoxicillin AdvReac Nausea & Verified 08/06/24 03:22 Vomiting & Diarrhea shellfish derived [Shellfish] AdvReac Nausea & Verified 08/06/24 03:22 Vomiting & Diarrhea Review of Systems ROS Statement: Those systems with pertinent positive or pertinent negative responses have been documented in the HPI. ROS Other: All systems not noted in ROS Statement are negative. Past Medical History Past Medical History: Asthma, GERD/Reflux Additional Past Medical History / Comment(s): LOW IRON, STATES NAUSEA AND "SQUEEZING PAIN" IN HER STOMACH. UTERINE POLYP gall stones History of Any Multi-Drug Resistant Organisms: None Reported Past Surgical History: Appendectomy, Cholecystectomy, Orthopedic Surgery Additional Past Surgical History / Comment(s): ankle implant ( left side), EGD Past Anesthesia/Blood Transfusion Reactions: No Reported Reaction Past Psychological History: Anxiety, Depression Smoking Status: Never smoker Past Alcohol Use History: None Reported Past Drug Use History: None Reported - Past Family History Mother Family Medical History: No Reported History General Exam - General Exam Comments Initial Comments: PHYSICAL EXAM: General Impression: Alert and oriented x3, not in acute distress HEENT: Normocephalic atraumatic, extra-ocular movements intact, pupils equal and reactive to light bilaterally, mucous membranes moist. Cardiovascular: Heart regular rate and rhythm Chest: Able to complete full sentences, no retractions, no tachypnea Abdomen: abdomen soft, palpatory epigastric tenderness, non-distended, no organomegaly Musculoskeletal: Pulses present and equal in all extremities, no peripheral edema Motor: no focal deficits noted Neurological: CN II-XII grossly intact, no focal motor or sensory deficits noted Skin: Intact with no visualized rashes Psych: Normal affect and mood Limitations: no limitations Course Vital Signs 08/06/24 03:19 Temperature 97.8 F Pulse Rate 98 Respiratory 18 Rate Blood Pressure 114/81 O2 Sat by Pulse 100 Oximetry EKG Findings - EKG Comments: EKG Findings:: My EKG interpretation: Ventricular rate 73, sinus rhythm, SD 162, QRS 82, QTc 413. No SD prolongation, no QTC prolongation, no ST or T-wave changes noted. Overall, this EKG is unremarkable Medical Decision Making - Medical Decision Making Was pt. sent in by a medical professional or institution (, PA, RAIL SIGNAL DESIGNER, urgent care, hospital, or senior living...) When possible be specific @ -No Did you speak to anyone other than the patient for history (EMS, parent, family, police, friend...)? What history was obtained from this source @ -No Did you review nursing and triage notes (agree or disagree)? Why? @ -I reviewed and agree with nursing and triage notes Were old charts reviewed (outside hosp., previous admission, EMS record, old EKG, old radiological studies, urgent care reports/EKG's, senior living records)? Report findings @ -No old charts were reviewed Differential Diagnosis (chest pain, altered mental status, abdominal pain women, abdominal pain men, vaginal bleeding, musculoskeletal, weakness, fever, dyspnea, syncope, headache, dizziness, GI bleed, back pain, seizure, CVA, palpatations, mental health)? @ -Differential Abdominal Pain Women: Appendicitis, Cholecystitis, diverticulosis, ischemic bowel, pancreatitis, hepatitis, UTI, gastroenteritis, AAA, incarcerated hernia, bowel obstruction, constipation, inflammatory bowel, hepatitis, peptic ulcer disease, splenic infarction, perforated viscus, vulvitis, ovarian torsion, PID, kidney stone, placenta abruption, this is not meant to be an all-inclusive list EKG interpreted by me (3pts min.). @ -See above X-rays interpreted by me (1pt min.). @ -None done CT interpreted by me (1pt min.). @ -CT abdomen pelvis shows no acute processes U/S interpreted by me (1pt. min.). @ -None done What testing was considered but not performed or refused? (CT, X-rays, U/S, labs)? Why? @ -None What meds were considered but not given or refused? Why? @ -None Was smoking cessation discussed for >3mins.? @ -No Were there social determinants of health that impacted care today? How? (Homelessness, low income, unemployed, alcoholism, drug addiction, transportation, low edu. Level, literacy, decrease access to med. care, long term, rehab)? @ -No Was there de-escalation of care discussed even if they declined (Discuss DNR or withdrawal of care, Hospice)? DNR status @ -No What co-morbidities impacted this encounter? (DM, HTN, Smoking, COPD, CAD, Cancer, CVA, ARF, Chemo, Hep., AIDS, mental health diagnosis, sleep apnea, morbid obesity)? @ -Chronic abdominal symptoms Was patient admitted / discharged? Hospital course, mention meds given and route, prescriptions, significant lab abnormalities, going to OR and other pertinent info. @ -31-year-old female presents to the emergency department for what she describes as dumping syndrome. Vital signs are stable. Patient well-appearing she has some palpatory tenderness to the abdomen. Otherwise in no acute distress. Laboratory evaluation is unremarkable. CT abdomen/pelvis is negative for any acute processes. Patient feels relieved after IV fluids Zofran and Toradol. Patient discharged told to follow-up with GI specialist. Did you discuss the management of the patient with other professionals (professionals i.e. , PA, RAIL SIGNAL DESIGNER, lab, RT, psych nurse, hospital social worker, tube blower, teacher, armored vehicle officer, piano case and bench assembler)? Give summary @ -No Was critical care preformed (if so, how long)? @ -No Undiagnosed new problem with uncertain prognosis? @ -No Drug Therapy requiring intensive monitoring for toxicity (Heparin, Nitro, Insulin, Cardizem)? @ -No Were any procedures done? @ -No Diagnosis/symptom? Acute, or Chronic, or Acute on Chronic? Uncomplicated (without systemic symptoms) or Complicated (systemic symptoms)? @ -Abdominal pain, no high risk features Side effects of treatment? @ -No Exacerbation, Progression, or Severe Exacerbation? @ -No Poses a threat to life or bodily function? How? (Chest pain, [place], [place], pneumonia, PE, COPD, DKA, ARF, appy, cholecystitis, CVA, Diverticulitis, Homicidal, Suicidal, threat to staff... and all critical care pts) @ -No - Lab Data Result diagrams: 08/06/24 04:10 08/06/24 04:10 Lab Results 08/06/24 08/06/24 Range/Units 04:10 04:10 WBC 10.77 H (4.50-10.00) 10*3/uL RBC 4.41 (4.10-5.20) 10*6/uL Hgb 13.5 (12.0-15.0) g/dL Hct 40.6 (37.2-46.3) % MCV 92.1 (80.0-97.0) fL MCH 30.6 (27.0-32.0) pg MCHC 33.3 (32.0-37.0) g/dL Plt Count 350 (140-440) 10*3/uL MPV 9.6 (9.5-12.2) fL Immature Gran % (Auto) 0.2 % Neutrophils % 61.2 % Lymphocytes % 31.8 % Monocytes % 5.8 % Eosinophils % 0.8 % Basophils % 0.2 % Immature Gran # 0.02 (0.00-0.04) 10*3/uL Neutrophils # 6.60 (1.80-7.70) 10*3/uL Lymphocytes # 3.42 (0.90-5.00) 10*3/uL Monocytes # 0.62 (0.20-1.00) 10*3/uL Eosinophils # 0.09 (0.04-0.35) 10*3/uL Basophils # 0.02 (0.00-0.10) 10*3/uL Sodium 140 (137-145) mmol/L Potassium 4.7 (3.5-5.1) mmol/L Chloride 104 (98-107) mmol/L Carbon Dioxide 24 (22-30) mmol/L Anion Gap 12 mmol/L BUN 9 (7-17) mg/dL Creatinine 0.69 (0.52-1.04) mg/dL Est GFR (CKD-EPI)AfAm >90 (>60 ml/min/1.73 sqM) Est GFR (CKD-EPI)NonAf >90 (>60 ml/min/1.73 sqM) Glucose 90 (74-99) mg/dL Calcium 9.1 (8.4-10.2) mg/dL Total Bilirubin 0.8 (0.2-1.3) mg/dL AST 19 (14-36) U/L ALT 8 (4-34) U/L Alkaline Phosphatase 82 (38-126) U/L Total Protein 6.3 (6.3-8.2) g/dL Albumin 3.9 (3.5-5.0) g/dL Lipase 74 (23-300) U/L HCG, Quant <2.4 mIU/mL Disposition Clinical Impression: Abdominal pain Disposition: HOME SELF-CARE Condition: Good Instructions (If sedation given, give patient instructions): Abdominal Pain (ED) Is patient prescribed a controlled substance at d/c from ED?: No Referrals: Eriberto Nassar MD [Primary Care Provider] - 1-2 days Abbie Perez MD [STAFF PHYSICIAN] - 1-2 days Time of Disposition: 06:51
[2024-08-06 04:21] LABS: Basophils # (A) 0.02 10*3/uL (0.00-0.10); Basophils % (A) 0.2 %; Eosinophils # (A) 0.09 10*3/uL (0.04-0.35); Eosinophils % (A) 0.8 %; HCT 40.6 % (37.2-46.3); HGB 13.5 g/dL (12.0-15.0); Lymphocytes # (A) 3.42 10*3/uL (0.90-5.00); Lymphocytes % (A) 31.8 %; MCH 30.6 pg (27.0-32.0); MCHC 33.3 g/dL (32.0-37.0); MCV 92.1 fL (80.0-97.0); Mean Platelet Volume 9.6 fL (9.5-12.2); Monocytes # (A) 0.62 10*3/uL (0.20-1.00); Monocytes % (A) 5.8 %; Neutrophils % (A) 61.2 %; Platelet Count 350 10*3/uL (140-440); RBC 4.41 10*6/uL (4.10-5.20); WBC 10.77 10*3/uL (4.50-10.00)
[2024-08-06 04:42] LABS: ALT 8 U/L (4-34); AST 19 U/L (14-36); African American GFR (CKD) >90 (>60 ml/min/1.73 sqM); Albumin 3.9 g/dL (3.5-5.0); Alkaline Phosphatase 82 U/L (38-126); Anion Gap 12 mmol/L; Blood Urea Nitrogen 9 mg/dL (7-17); Calcium 9.1 mg/dL (8.4-10.2); Carbon Dioxide 24 mmol/L (22-30); Chloride 104 mmol/L (98-107); Glucose 90 mg/dL (74-99); Lipase 74 U/L (23-300); Non-African American GFR(CKD) >90 (>60 ml/min/1.73 sqM); Potassium 4.7 mmol/L (3.5-5.1); Sodium 140 mmol/L (137-145); Total Bilirubin 0.8 mg/dL (0.2-1.3); Total Protein 6.3 g/dL (6.3-8.2)
[2024-08-06 04:57] LABS: HCG,Quantitative Serum <2.4 mIU/mL
[2024-08-06] MEDS: ONDANSETRON 4 MG/2 ML VIAL IVP STA (05:40)
[2024-08-06] MEDS: SODIUM CHLORIDE 0.9% 1,000 ML IV STA (05:40)
--- NOTE | 2024-08-06 06:38 | CT ---
EXAM: CT Abdomen and Pelvis With Intravenous Contrast CLINICAL HISTORY: ITS.REASON CT Reason: epigastric abdominal pain TECHNIQUE: Axial computed tomography images of the abdomen and pelvis with intravenous contrast. CTDI is 8.8 mGy and DLP is 397.4 mGy-cm. This CT exam was performed using one or more of the following dose reduction techniques: automated exposure control, adjustment of the mA and/or kV according to patient size, and/or use of iterative reconstruction technique. COMPARISON: No relevant prior studies available. FINDINGS: Lung bases: Unremarkable. No mass. No consolidation. ABDOMEN: Liver: No evidence of intrahepatic biliary dilatation. Gallbladder and bile ducts: Cholecystectomy changes with residual dilatation of the cystic duct. The common duct measures up to 6 mm which can be seen with reservoir effect. Pancreas: No evidence of pancreatitis. No ductal dilation. Spleen: Unremarkable. No splenomegaly. Adrenals: Unremarkable. No mass. Kidneys and ureters: Unremarkable. No solid mass. No hydronephrosis. Stomach and bowel: Unremarkable. No obstruction. No mucosal thickening. PELVIS: Appendix: No findings to suggest acute appendicitis. Bladder: Unremarkable. No mass. Reproductive: Unremarkable as visualized. ABDOMEN and PELVIS: Intraperitoneal space: Unremarkable. No free air. No significant fluid collection. Bones/joints: Degenerative changes in the spine. No acute fracture. No dislocation. Soft tissues: Umbilical hernia containing fat. Vasculature: Unremarkable. No abdominal aortic aneurysm. Lymph nodes: Unremarkable. No enlarged lymph nodes. IMPRESSION: 1. Cholecystectomy changes with residual dilatation of the cystic duct. The common duct measures up to 6 mm which can be seen with reservoir effect. 2. No evidence of pancreatitis. 3. No evidence of intrahepatic biliary dilatation. 4. No other acute findings. 5. Incidental findings as described.
[2024-08-06] MEDS: KETOROLAC 15 MG/ML 1 ML VIAL IVP STA (06:59)
[2024-08-06 07:00] VITALS: BP 115/79; PULSE 69; RESP 17; TEMP 99
== END 2024-08-06 07:03 | disposition home or self-care (01) ==
LOC: EC 03:18
DX: R10.13 Epigastric pain (principal); Z88.0 Allergy status to penicillin; Z88.8 Allergy status to other drugs, medicaments and biological substances; Z91.013 Allergy to seafood; Z91.018 Allergy to other foods
CPT/HCPCS: 36415; 93005; 80053; 83690; 85025; 84702; 74177; 99284; 96374; 96375; 96361; J2405; J1885; Q9967